=== PATIENT | female | born 1955 | race Caucasian/White ===

== ENCOUNTER → 2019-02-06 13:15 | Outpatient (CLI) | payer OTHER, SELFPAY | PROVIDERS: PCP Emergency Medicine; Visit Provider Internal Medicine Hematology & Oncology | DX: C50.411 Malignant neoplasm of upper-outer quadrant of right female breast (principal) | CPT/HCPCS: 36415; 85025 ==

== ENCOUNTER 2019-04-15 12:57 | Outpatient (RCR) | payer OTHER, SELFPAY | END 2019-05-15 | LOC: ANHLAB 12:57 | PROVIDERS: PCP Emergency Medicine; Visit Provider Internal Medicine Hematology & Oncology | DX: C50.411 Malignant neoplasm of upper-outer quadrant of right female breast (principal); C79.81 Secondary malignant neoplasm of breast; Z17.0 Estrogen receptor positive status [ER+] | CPT/HCPCS: 36415; 80053; 85025; 86300 ==

== ENCOUNTER 2019-10-15 12:51 | Outpatient (CLI) | payer MEDICARE, MEDICAID, SELFPAY ==
[2019-10-15 13:08] LABS: Hematocrit 51.1 % (37.0-47.0); Hemoglobin 17.1 g/dL (12.0-15.0); Mean Corpuscular HGB Conc 33.5 g/dl (32-36); Mean Corpuscular Hemoglobin 31.7 pg (26-34); Mean Corpuscular Volume 94.8 fl (80-100); Mean Platelet Volume 9.4 fl (7.4-10.4); Platelet Count Result 350 k/mm3 (150-375); Red Blood Count 5.39 M/mm3 (4.2-5.4); White Blood Count 9.6 K/mm3 (4.5-10.0)
[2019-10-15 13:16] LABS: Blood Urea Nitrogen 11 mg/dL (8-26); Carbon Dioxide 23 mmol/L (22-30); Chloride 105 mmol/L (98-109); Estimated Glomerular Filt Rate > 60; Glucose 94 mg/dL (70-105); Potassium 4.2 mmol/L (3.5-4.9); Sodium 138 mmol/L (138-146)
[2019-10-15 16:51] LABS: Alanine Aminotransferase 22 U/L (4-35); Albumin Level 4.2 g/dL (3.5-5.1); Alkaline Phosphatase 99 U/L (38-126); Aspartate Amino Transferase 26 U/L (14-36); Bilirubin,Total 0.5 mg/dL (0.2-1.3); Blood Urea Nitrogen 11 mg/dL (7-17); Calcium 9.8 mg/dL (8.4-10.2); Carbon Dioxide 23 mmol/L (22-30); Chloride 107 mmol/L (98-107); Estimated Glomerular Filt Rate > 60; Glucose 95 mg/dL (65-105); Potassium 4.5 mmol/L (3.4-5.0); Sodium 135 mmol/L (137-145)
[2019-10-18 10:04] LABS: CA 27.29 21 U/mL (<38)
== END 2019-10-15 12:52 | disposition home or self-care (01) ==
PROVIDERS: PCP Emergency Medicine; Visit Provider Internal Medicine Hematology & Oncology
DX: C50.411 Malignant neoplasm of upper-outer quadrant of right female breast (principal); Z17.0 Estrogen receptor positive status [ER+]
CPT/HCPCS: 36415; 80048; 80053; 85027; 86300

== ENCOUNTER 2019-12-16 10:04 | Outpatient (CLI) | payer MEDICARE, MEDICAID, SELFPAY ==
--- NOTE | ~2019-12-16 | MM_ITS ---
EXAMINATION: MM screening isha BI w edilberto HISTORY: Screening mammogram TECHNIQUE: Craniocaudal and mediolateral oblique 3-D tomosynthesis images were obtained and synthetic 2-D images were generated. CAD analysis was submitted and interpreted. COMPARISON: 12/13/2018, 11/03/2017, 11/01/2016 bilateral digital screening mammogram examinations BREAST PARENCHYMAL COMPOSITION: There are scattered areas of fibroglandular density. FINDINGS: There is considerable volume loss of the right breast secondary to partial mastectomy; hist ory of right breast radiation. A biopsy marker is noted in the posterior upper outer right breast, pr esent previously. There appears to be diminished volume of the right breast compared to prior examinations. There is so me focal architectural distortion/asymmetric density in the posterior upper right breast on MLO view, possibly postoperative; diagnostic right mammogram is recommended, with ultrasound if required. Otherwise there is no evidence of interval suspicious mass, calcification, or new architectural disto rtion to suggest malignancy in either breast. There has been no suspicious interval change. Bilateral benign calcifications are noted. IMPRESSION: 1. Right breast asymmetry; diagnostic right mammogram is recommended, with ultrasound if required 2. Recommend routine screening mammography in one year. BI-RADS Category 0: Incomplete: Needs additional imaging evaluation. Reviewed, dictated and finalized at location A. IMPRESSION: 1. Right breast asymmetry; diagnostic right mammogram is recommended, with ultr asound if required 2. Recommend routine screening mammography in one year. BI-RADS Category 0: Incomplete: Needs additional imaging evaluation.
--- NOTE | 2019-12-24 12:59 | WPDSIXMINUTE ---
Six Minute Walk Six Minute Walk: DOS: 12/16/2019 REQUESTING: Stephanie Walker NP REASON FOR TESTING: Exertional dyspnea. SIX MINUTE WALK This test was conducted per ATS guidelines. Initial saturation was 95% and pulse was 89. Blood pressure 123/84. The patient walked for 6 minutes without stopping. Distance walked was 1100 ft/ 335 m. Lowest saturation was 92%. Pulse ranged from 81 - 109. IMPRESSION: This walk study is normal without desaturation. No need for supplemental oxygen with exertion. Distance walked is adequate for age.
== END 2019-12-16 10:05 | disposition home or self-care (01) ==
PROVIDERS: PCP Emergency Medicine; Visit Provider Internal Medicine Hematology & Oncology
DX: Z12.31 Encounter for screening mammogram for malignant neoplasm of breast (principal); J44.9 Chronic obstructive pulmonary disease, unspecified; R92.8 Other abnormal and inconclusive findings on diagnostic imaging of breast
CPT/HCPCS: 77063; 77067; 94618

== ENCOUNTER 2020-01-10 11:18 | Outpatient (CLI) | payer MEDICARE, MEDICAID, SELFPAY ==
--- NOTE | ~2020-01-10 | MMUS_ITS ---
EXAMINATION: MM diagnostic mammo unilat RT, US breast RT limited HISTORY: Right breast asymmetry TECHNIQUE: Additional 3-D tomosynthesis images of the right breast were performed and synthetic 2-D i mages were generated. CAD analysis was submitted and interpreted. High resolution upper outer quadran t right breast ultrasound was performed. COMPARISON: 12/16/2019 bilateral digital screening mammogram FINDINGS: MAMMOGRAPHIC FINDINGS: There are surgical clips and a biopsy marker in the upper outer quadrant of the right breast. There i s associated focal asymmetric density/architectural distortion and some overlying retraction. ULTRASOUND: There is some shadowing in the area of the scar at 10:00, without definite mass. IMPRESSION: 1. Probably benign postoperative changes in the upper outer quadrant of the right breast 2. 6 month diagnostic right mammogram and targeted upper outer quadrant right breast ultrasound follo w-up are recommended BI-RADS category 3, probably benign findings. Reviewed, dictated and finalized at location A. IMPRESSION: 1. Probably benign postoperative changes in the upper outer quadrant of the rig ht breast 2. 6 month diagnostic right mammogram and targeted upper outer quadrant right b reast ultrasound follow-up are recommended BI-RADS category 3, probably benign findings.
== END 2020-01-10 11:19 | disposition home or self-care (01) ==
LOC: ANHIMG 11:20
PROVIDERS: PCP Emergency Medicine; Visit Provider Internal Medicine Hematology & Oncology
DX: C50.411 Malignant neoplasm of upper-outer quadrant of right female breast (principal); Z17.0 Estrogen receptor positive status [ER+]
CPT/HCPCS: 76642; 77065

== ENCOUNTER 2020-04-21 12:07 | Outpatient (CLI) | payer MEDICARE, MEDICAID, SELFPAY ==
--- NOTE | 2020-04-28 09:47 | WPDPFTINT ---
PFT Interpretation PFT Interpretation: This PFT met all criteria for ATS standards and reproducibility FEV/FVC post bronchodilator 56% of predicted FEV1 81% or 1.59 liters FVC 105% or 2.85 liters TLC 123% or 5.48 liters RV 157% RV/TLC 49% DLCO 58% when adjusted for alveolar volume but not adjusted for hemoglobin Flow volume loops showed significant expiratory coving Impression: Mild airflow obstruction with hyperinflation, air trapping and moderately reduced diffusion capacity. This corresponds with COPD. Clinical correlation is advised.
== END 2020-04-21 12:08 | disposition home or self-care (01) ==
LOC: ANHPFT 12:08
PROVIDERS: PCP Emergency Medicine; Visit Provider Nurse Practitioner
DX: J44.9 Chronic obstructive pulmonary disease, unspecified (principal)
CPT/HCPCS: 94060; 94726; 94729

== ENCOUNTER 2020-07-13 11:46 | Outpatient (CLI) | payer MEDICARE, MEDICAID, SELFPAY ==
--- NOTE | ~2020-07-13 | MMUS_ITS ---
EXAMINATION: MM diagnostic isha RT w edilberto, US breast RT limited HISTORY: Six-month follow-up for probably benign right breast architectural distortion, history of ri ght breast cancer TECHNIQUE: Craniocaudal, mediolateral, and mediolateral oblique 3-D tomosynthesis images of the right breast were performed and synthetic 2-D images were generated. CAD analysis was submitted and interp reted. High resolution limited right breast ultrasound was performed. COMPARISON: 01/10/2020, 12/16/2019, 12/13/2018, 11/03/2017 BREAST PARENCHYMAL COMPOSITION: There are scattered areas of fibroglandular density. FINDINGS: MAMMOGRAPHIC FINDINGS: There is stable architectural distortion in the posterior third of the upper outer quadrant of the ri ght breast. This has an appearance similar to prior examinations with no suspicious interval change i dentified. ULTRASOUND: A stable scarring is present at the site of prior lumpectomy. No suspicious mass is identified. IMPRESSION: 1. No mammographic or sonographic evidence of malignancy. 2. Routine screening mammography is recommended, due in six months. BI-RADS Category 2: Benign finding(s). Reviewed, dictated and finalized at location A. NT CARE COORDINATOR IMPRESSION: 1. No mammographic or sonographic evidence of malignancy. 2. Routine screening mammography is recommended, due in six months. BI-RADS Category 2: Benign finding(s).
--- NOTE | ~2020-07-13 | CT_ITS ---
EXAMINATION: CT lung screening DATE: 07/13/2020 13:16 INDICATION: Tobacco dependence TECHNIQUE: Computed tomography (CT) of the chest was performed without intravenous contrast. The dose -length product was 186.22 mGy-cm. Automated exposure control and iterative reconstruction technique were employed. COMPARISON: Comparison to multiple prior studies sequentially, with oldest reviewed study dated 11/2017. FINDINGS: Moderate-severe emphysema. Stable 3 mm left upper lobe nodule. There is a 5 mm perifissural nodule superior segment right lower lobe, image 43. No endobronchial lesions. No pneumothorax. Mild thoracic spondylosis. There is a 1.5 cm low-density lesion right adrenal gland, consistent with benig n adenoma. There is a 2.6 cm left adrenal nodule, also consistent with adenoma. There is distortion o f the right breast consistent with previous lumpectomy. IMPRESSION: 1. Lung-RADS category 3: Probably benign. Further evaluation is recommended with noncontrast low-dose chest CT in 6 months. Reviewed, dictated and finalized at location A. H SUPERVISOR IMPRESSION: 1. Lung-RADS category 3: Probably benign. Further evaluation is recommended wit h noncontrast low-dose chest CT in 6 months.
== END 2020-07-13 11:47 | disposition home or self-care (01) ==
PROVIDERS: PCP Emergency Medicine; Visit Provider Internal Medicine Hematology & Oncology
DX: C79.81 Secondary malignant neoplasm of breast (principal); Z12.2 Encounter for screening for malignant neoplasm of respiratory organs; Z87.891 Personal history of nicotine dependence
CPT/HCPCS: 76642; 77061; 77065; G0279; G0297

== ENCOUNTER 2020-12-25 14:38 | Outpatient (CLI) | payer MEDICARE, MEDICAID, SELFPAY ==
--- NOTE | ~2020-12-25 | CT_ITS ---
EXAMINATION: CT diagnostic chest wo con DATE: 12/25/2020 15:01 INDICATION: Follow-up pulmonary nodules TECHNIQUE: Computed tomography (CT) of the chest was performed without intravenous contrast. The dose -length product was 270.20 mGy-cm. Automated exposure control and iterative reconstruction technique were employed. COMPARISON: Comparison to multiple prior studies sequentially, with oldest reviewed study dated 11/2017. FINDINGS: Heart size normal. Stable mediastinal lymphadenopathy, likely reactive. There is atheroscle rosis of the aorta and coronary arteries. No significant pleural or pericardial effusion. No signific ant change to low-density bilateral adrenal masses, largest on the left measuring 2.6 cm, most likely benign adenomas. Severe emphysema. Calcified granuloma right upper lobe. Stable 3 mm left upper lobe nodule. Fissural nodule on the right seen on prior examination not definitely seen on current study, likely r esolving atelectasis. No endobronchial lesions. Dependent atelectasis. No new pulmonary nodules or ma sses. No endobronchial lesions. There are changes of lumpectomy in the right breast. Mild thoracic sp ondylosis. No acute osseous abnormality. No lytic or blastic lesions. IMPRESSION: 1. Stable left upper lobe nodule measuring 3 mm, likely benign. Twelve-month follow-up low dose CT ch est recommended. 2: Severe emphysema. 3: Mediastinal lymphadenopathy stable, likely reactive. 4: Stable bilateral low-density adrenal masses, likely benign adenomas. Reviewed, dictated and finalized at location A. IMPRESSION: 1. Stable left upper lobe nodule measuring 3 mm, likely benign. Twelve-month fo llow-up low dose CT chest recommended. 2: Severe emphysema. 3: Mediastinal lymphadenopathy stable, likely reactive. 4: Stable bilateral low-density adrenal masses, likely benign adenomas.
== END 2020-12-25 14:39 | disposition home or self-care (01) ==
PROVIDERS: PCP Emergency Medicine; Visit Provider Internal Medicine Hematology & Oncology
DX: R93.89 Abnormal findings on diagnostic imaging of other specified body structures (principal); R91.1 Solitary pulmonary nodule; J43.9 Emphysema, unspecified; R59.0 Localized enlarged lymph nodes; E27.9 Disorder of adrenal gland, unspecified
CPT/HCPCS: 71250

== ENCOUNTER 2021-01-19 12:05 | Outpatient (CLI) | payer MEDICARE, MEDICAID, SELFPAY ==
--- NOTE | ~2021-01-19 | MM_ITS ---
EXAMINATION: MM diagnostic isha BI w edilberto HISTORY: History of right partial mastectomy and radiotherapy in 2015 for breast cancer. TECHNIQUE: ML, MLO and craniocaudal 3-D tomosynthesis images of both breasts were performed and synth etic 2-D images were generated. CAD analysis was submitted and interpreted. COMPARISON: 07/13/2020 and 01/10/2020 diagnostic right mammogram and limited right breast ultrasound 12/16/2019, 12/13/2018, 11/03/2017 bilateral digital screening mammogram examinations BREAST PARENCHYMAL COMPOSITION: There are scattered areas of fibroglandular density. FINDINGS: Stable prominent right breast volume loss and scarring in the upper outer quadrant. A biopsy marker is again noted on the right. No interval suspicious mass, architectural distortion, m alignant constipation, skin thickening or retraction since prior examinations. Scattered bilateral be nign calcifications. IMPRESSION: 1. Status post right partial mastectomy for breast cancer; no current evidence of malignancy or signi ficant change 2. Routine mammographic screening is recommended BI-RADS Category 2: Benign finding(s). Reviewed, dictated and finalized at location A. IMPRESSION: 1. Status post right partial mastectomy for breast cancer; no current evidence of malignancy or significant change 2. Routine mammographic screening is recommended BI-RADS Category 2: Benign finding(s).
== END 2021-01-19 12:06 | disposition home or self-care (01) ==
LOC: ANHIMG 12:08
PROVIDERS: PCP Emergency Medicine; Visit Provider Internal Medicine Hematology & Oncology
DX: C50.411 Malignant neoplasm of upper-outer quadrant of right female breast (principal); Z17.0 Estrogen receptor positive status [ER+]; Z98.890 Other specified postprocedural states
CPT/HCPCS: 77062; 77066; G0279

== ENCOUNTER 2021-10-28 11:04 | Emergency (ER) | payer MEDICARE, MEDICAID, SELFPAY ==
[2021-10-28] VITALS (8 sets, daily range): BP systolic 130–178; BP diastolic 68–99; PULSE 77; RESP 16; TEMP 36.4–37; O2SAT 96–97
--- NOTE | ~2021-10-28 | CT_ITS ---
EXAMINATION: CTA chest PE protocol DATE: 10/28/2021 12:42 INDICATION: Hemoptysis. History of COPD. TECHNIQUE: Computed tomography angiography (CTA) of the chest was performed with 100 mL Omnipaque-350 intravenous contrast timed to evaluate the pulmonary arteries. Coronal maximum intensity projection 3D-reconstructions were created by the technologist. Automated exposure control and iterative reconst ruction technique were employed. Exam dose: 329.31 mGy-cm total exam DLP. COMPARISON: 12/17/2020 CT chest FINDINGS: There is diagnostic contrast enhancement of the pulmonary arteries and no evidence of pulmo nary embolism. No hilar or mediastinal mass lesion or lymphadenopathy. No thoracic aortic aneurysm. There is aortic and coronary and great vessel calcification. Postoperative change and probable scarring of the right breast. Left breast is largely excluded from examination. Prominent emphysematous changes of the lungs. No pulmonary infiltration or consolidation. No suspicio us pulmonary mass lesion. Stable bilateral low-attenuation adrenal masses, likely benign adrenal adenomas. Small sliding hiatal hernia. No suspicious osteolytic or osteoblastic lesions. IMPRESSION: No evidence of pulmonary embolism Emphysema Small sliding hiatal hernia Stable bilateral adrenal adenomas Reviewed, dictated and finalized at Location [facility]. Reviewed, dictated and finalized at location A.
--- NOTE | 2021-10-28 11:43 | ED.GENADULT ---
HPI - General Adult General Chief complaint: Unspecified Stated complaint: coughing up blood Time Seen by Provider: 10/28/21 11:41 Source: patient Mode of arrival: ambulatory Limitations: no limitations History of Present Illness HPI narrative: Patient is a six 6-year-old female complaining of coughing up blood this morning, 1 episode, has not recurred since. Patient denies any chest pain, shortness of breath, abdominal pain, nausea, vomiting, diaphoresis, fever or chills. Patient denies hematemesis, hematochezia or melena. Patient states that she has a history of COPD. Related Data Home Medications Medication Instructions Recorded Confirmed albuterol sulfate [Ventolin HFA] 90 puff INHALATION DIRECTED 05/17/19 06/21/21 alendronate 70 mg PO ONCE 05/17/19 06/21/21 anastrozole 1 mg PO DAILY 05/17/19 06/21/21 aspirin 325 mg PO DAILY 05/17/19 06/21/21 calcium carbonate 500 mg PO DAILY 05/17/19 06/21/21 fluticasone propion-salmeterol 1 puff INHALATION BID 05/17/19 06/21/21 umeclidinium [Incruse Ellipta] 1 inh INHALATION DAILY 05/17/19 06/21/21 Allergies Allergy/AdvReac Type Severity Reaction Status Date / Time codeine Allergy Unknown Itching Verified 06/21/21 13:09 Review of Systems Review of Systems: All systems reviewed & are unremarkable except as noted in HPI and below Constitutional: Constitutional: Denies body ache(s), Denies chills, Denies excessive sweating, Denies fatigue, Denies fever(s), Denies headache(s), Denies lethargy, Denies malaise, Denies weakness and Denies weight loss Eyes: Eyes: Denies blurry vision, Denies change in vision and Denies loss of vision ENT: Denies dizziness, Denies ear discharge, Denies headache(s), Denies lip swelling, Denies epistaxis, Denies nasal congestion, Denies neck pain, Denies throat swelling and Denies tongue swelling Cardiovascular: Cardiovascular: Denies chest pain, Denies chest pain at rest, Denies chest pain with activity, Denies diaphoresis, Denies rapid heart rate, Denies edema, Denies irregular heart rhythm, Denies lightheadedness, Denies palpitations, Denies dyspnea and Denies dyspnea on exertion Respiratory: Respiratory: Denies chest congestion, Denies cough, Denies dyspnea and Denies dyspnea on exertion Gastrointestinal: Gastrointestinal: Denies abdominal pain, Denies melena, Denies hematochezia, Denies diarrhea, Denies nausea, Denies vomiting and Denies hematemesis Musculoskeletal: Musculoskeletal: Denies abnormal gait, Denies deformity, Denies joint swelling, Denies limited range of motion, Denies neck pain and Denies numbness Neurologic: Denies Abnormal speech present, Denies abnormal gait, Denies confusion, Denies dizziness, Denies headache(s), Denies focal weakness, Denies loss of vision, Denies numbness, Denies Other visual disturbances, Denies Sensory deficit (Neuro) and Denies weakness Psychiatric: Psychiatric: Denies confusion, Denies depression, Denies auditory hallucinations, Denies homicidal ideation and Denies suicidal ideation Endocrine: Endocrine: Denies cold intolerance, Denies excessive sweating, Denies fatigue, Denies heat intolerance and Denies palpitations Hematologic/Lymphatic: Hematologic/Lymphatic: Denies easy bleeding and Denies easy bruising Allergic/Immunologic: Allergic/Immunologic: Denies lip swelling, Denies throat swelling and Denies tongue swelling PMFSH Comments Past medical history: COPD, osteoporosis Family history: Hypertension Social history: Positive for smoker, no EtOH or drug use Exam Const: General: cooperative, healthy appearing, comfortable, no acute distress, well developed, alert and awake; No confusion Orientation/consciousness: oriented to person, oriented to place, oriented to time, patient oriented x3 and No confusion Limitations: no limitations HENMT: Head: normal to inspection, normocephalic and atraumatic Ears: hearing grossly normal bilaterally, TM normal on the right and TM normal on the left General nose exam:
[2021-10-28 12:02] LABS: Basophils Absolute Auto 0.1 K/mm3 (0.0-0.1); Basophils Percent Auto 0.8 % (0.2-1.2); Eosinophils Absolute Auto 0.1 K/mm3 (0-0.3); Eosinophils Percent Auto 1.1 % (0-4.4); Hematocrit 50.2 % (37.0-47.0); Hemoglobin 17.1 g/dL (12.0-15.0); Immature Granulocyte Absolute 0.05 K/mm3 (0.00-0.031); Immature Granulocyte Percent A 0.4 % (0-0.5); Lymphocytes Absolute Auto 2.23 K/mm3 (0.9-3.2); Lymphocytes Percent Auto 18.7 % (18.3-44.2); Mean Corpuscular HGB Conc 34.1 g/dl (32-36); Mean Corpuscular Hemoglobin 32.1 pg (26-34); Mean Corpuscular Volume 94.2 fl (80-100); Mean Platelet Volume 9.4 fl (7.4-10.4); Monocytes Absolute Auto 0.6 K/mm3 (0.1-0.6); Neutrophils Absolute Auto 8.8 K/mm3 (1.3-6.7); Platelet Count Result 344 k/mm3 (150-375); Red Blood Count 5.33 M/mm3 (4.2-5.4); Red Cell Distribution Width 13.1 % (11.5-14.5); White Blood Count 11.9 K/mm3 (4.5-10.0)
[2021-10-28 12:12] LABS: INR 0.9; Prothrombin Time 11.7 Seconds (11.1-14.7)
[2021-10-28 12:13] LABS: Partial Thromboplastin Time 25.8 SECONDS (22.3-36.8)
[2021-10-28 12:14] LABS: Alanine Aminotransferase 17 U/L (4-35); Albumin Level 4.3 g/dL (3.5-5.1); Alkaline Phosphatase 97 U/L (38-126); Anion Gap 10 mmol/L (8-16); Aspartate Amino Transferase 23 U/L (14-36); Bilirubin,Total 0.4 mg/dL (0.2-1.3); Blood Urea Nitrogen 14 mg/dL (7-17); Calcium 9.1 mg/dL (8.4-10.2); Carbon Dioxide 22 mmol/L (22-30); Chloride 107 mmol/L (98-107); Estimated Glomerular Filt Rate > 60; Glucose 103 mg/dL (65-110); Sodium 139 mmol/L (137-145)
[2021-10-28 12:15] LABS: D Dimer 0.33 ug/mL (<0.48)
== END 2021-10-28 14:16 | disposition home or self-care (01) ==
PROVIDERS: Emergency Provider Emergency Medicine; PCP Emergency Medicine
DX: R04.2 Hemoptysis (principal); J44.9 Chronic obstructive pulmonary disease, unspecified; M81.0 Age-related osteoporosis without current pathological fracture; F17.200 Nicotine dependence, unspecified, uncomplicated; Z79.82 Long term (current) use of aspirin
CPT/HCPCS: 36415; 71275; 80053; 85025; 85380; 85610; 85730; 99284; Q9967

== ENCOUNTER 2022-01-04 18:41 | Emergency (ER) | payer MEDICARE, MEDICAID, SELFPAY ==
--- NOTE | 2022-01-04 18:48 | ED.FEMALEGU ---
HPI - Female Genitourinary General Chief complaint: Urogenital-Female Stated complaint: UTI Time Seen by Provider: 01/04/22 18:58 Source: patient and RN notes reviewed Mode of arrival: ambulatory Limitations: no limitations History of Present Illness HPI Narrative: 66-year-old female presents to the [facility] with burning, urgency and frequency along with suprapubic pain that is been getting worse over the last 4 days. Denies fever, generalized abdominal pain and chest pain. Has taken Azo MD elicited complaint: UTI Onset (ago): day(s) (4) Related Data Home Medications Medication Instructions Recorded Confirmed aspirin 325 mg tablet 325 mg PO DAILY 05/17/19 01/04/22 Allergies Allergy/AdvReac Type Severity Reaction Status Date / Time codeine Allergy Unknown Itching Verified 01/04/22 18:53 Review of Systems Review of Systems: All systems reviewed & are unremarkable except as noted in HPI and below Constitutional: Constitutional: Reports no additional constitutional complaints, Denies chills and Denies fever(s) Eyes: Eyes: Reports no additional eye complaints ENT: Reports system reviewed and no additional complaints, except as documented Cardiovascular: Cardiovascular: Reports no additional cardiovascular complaints Respiratory: Respiratory: Reports no additional respiratory complaints Gastrointestinal: Gastrointestinal: Reports as per HPI and Reports abdominal pain (Suprapubic pressure) Genitourinary: Genitourinary: Reports as per HPI, Reports hematuria, Reports dysuria and Denies urinary incontinence Musculoskeletal: Musculoskeletal: Reports no additional musculoskeletal complaints Integumentary/Breasts: Skin/Breast: Reports system reviewed and no additional complaints, except as docu Neurologic: Reports system reviewed and no additional complaints, except as documented Psychiatric: Psychiatric: Reports no additional psychiatric complaints Allergic/Immunologic: Allergic/Immunologic: Reports no additional allergic/immunologic complaints PMFSH Comments At the time of my signature, I reviewed and agree with the nursing past medical, surgical, social, and family history. There is no relevant family history pertinent to the patient complaint. Exam Const: General: no acute distress, alert and ill appearing chronically Nutritional Appearance: well nourished Orientation/consciousness: patient oriented x3 Limitations: no limitations HENMT: Head: normal to inspection Ears: external ears normal Eyes: General: appearance normal, both eyes and all related structures Pupils: Equal, round and reactive pupils present Neck: Neck: normal visual inspection, no lymphadenopathy and no meningeal signs Chest: Chest palpation & inspection: normal inspection of the chest Resp: Effort & Inspection: normal respiratory effort and no use of accessory muscles Cardio: Rate: regular rate Rhythm: regular rhythm GI: GI Palp: Yes Soft to palpation and No Tenderness to palpation present (GI) Back/Spine/Pelvis: Cervical Spine: normal cervical lordosis Thoracic/Lumbar Spine: thoracic and lumbar spine normal to inspection Skin: General skin exam: normal color Rashes: no rashes Wounds: no wounds Neuro: General: patient oriented x3, moves all extremities, no meningeal signs and no focal motor deficits Cranial nerves: Yes Equal, round and reactive pupils present Speech: normal speech Gait exam (Neuro): Normal gait present Extrem: General: normal to inspection, full ROM and capillary refill normal Psych: Appearance: grossly normal and well kempt Mental Status: mental status grossly normal Affect: normal affect Attitude: cooperative Thought content: Yes Normal thought content present Course Course Emergency Course: Discharge instructions reviewed with patient, as well as provided in writing per nursing staff. The instructions also include specific and strict return/GO TO THE ER as well as f/u information. All ques
[2022-01-04 18:58] VITALS: BP 86/69; PULSE 74; RESP 16; TEMP 37.2; O2SAT 97
== END 2022-01-04 19:05 | disposition home or self-care (01) ==
PROVIDERS: Emergency Provider Nurse Practitioner; PCP Emergency Medicine
DX: N39.0 Urinary tract infection, site not specified (principal); J44.9 Chronic obstructive pulmonary disease, unspecified; Z85.3 Personal history of malignant neoplasm of breast; Z90.10 Acquired absence of unspecified breast and nipple
CPT/HCPCS: 81003; 87077; 87086; 87186; 99213; G0463

== ENCOUNTER 2022-02-09 15:23 | Emergency (ER) | payer MEDICARE, MEDICAID, SELFPAY ==
--- NOTE | ~2022-02-09 | XR_ITS ---
XR hand LT min 3V DATE: 02/09/2022 15:59 INDICATION: Smashed right fingers in car door TECHNIQUE: 3 views COMPARISON: None FINDINGS: Minimally displaced fracture of the tuft of the distal phalanx of the third digit. No other fracture or dislocation. There is polyarticular osteophytosis, particularly severe at the first carpometacarpal joint, involvi ng multiple interphalangeal joints, particularly at the first digit and distal interphalangeal joint of the second digit. Osteopenia. IMPRESSION: Minimally displaced fracture of the tuft of the distal phalanx of the third digit Polyarticular osteoarthritis Reviewed, dictated and finalized at location A. IMPRESSION: Minimally displaced fracture of the tuft of the distal phalanx of t he third digit Polyarticular osteoarthritis
--- NOTE | 2022-02-09 15:36 | ED.UPPEXIN ---
HPI - Extremity Injury (Upper) General Chief Complaint: Extremity Injury, Upper Stated Complaint: left 3rd finger cut Time Seen by Provider: 02/09/22 15:36 Source: patient Mode of arrival: ambulatory Limitations: no limitations History of Present Illness HPI narrative: Carolina Streeter is a 66-year-old female with PMH of breast cancer and COPD, ulcer [facility] after smashing L finger in a car door-fingernail looks displaced and there is bleeding from underneath the nail; mild pain, good Refill in fingers in general Related Data Home Medications Medication Instructions Recorded Confirmed aspirin 325 mg tablet 325 mg PO DAILY 05/17/19 01/04/22 Allergies Allergy/AdvReac Type Severity Reaction Status Date / Time codeine Allergy Unknown Itching Verified 01/04/22 18:53 Review of Systems Review of Systems: CONSTITUTIONAL: Denies fever, chills, sweats. EYES: Denies visual changes, redness, discharge. ENT: Denies rhinorrhea, congestion, sore throat, otalgia. CARDIOVASCULAR: Denies chest pain, palpitations, edema. RESPIRATORY: Denies dyspnea, wheezing, cough GASTROINTESTINAL: Denies abdominal pain, nausea, vomiting, diarrhea. GENITOURINARY: Denies dysuria, hematuria, abnormal discharge SKIN: Denies rash or itching. NEUROLOGIC: Denies numbness, or focal weakness. PSYCHIATRIC: Denies anxiety or depression. Left finger trauma after smashing it in a cardoor PMFSH Past Medical History Medical History (Updated 02/09/22 @ 17:17 by Codie Dos Santos CNP) Breast cancer COPD (chronic obstructive pulmonary disease) Exam Narrative: GENERAL: This is a well-nourished, well-developed patient, in mild distress. HEAD: normocephalic, atraumatic. EYES: Sclera clear/white. Vision is grossly intact. EARS: External ears normal, Hearing grossly intact. NOSE: External nose normal without nasal discharge, nares without redness, no rhinorrhea. THROAT: Mucous membranes moist, NECK: Neck supple, non-tender CARDIOVASCULAR: Regular rate and rhythm without murmurs, gallops, or rubs. RESPIRATORY: Clear to auscultation. Breath sounds equal bilaterally. No wheezes, rales, or rhonchi. GASTROINTESTINAL: Not done SKIN: warm, intact with no suspicious lesions or rash, good texture and turgor. NEURO: awake, alert, and oriented to person, place and time. There were no obvious focal neurologic abnormalities. Steady gait EXTREMITIES: Normal range of motion. Third finger of left hand has nail displacement with bleeding and swelling and bruising of finger 2 and 4 BACK: Nontender without deformity Course Course Emergency Course: Patient comes to [facility] after smashing finger in car door X-ray of hand shows minimal displaced fracture of the tuft of the distal phalanx of third digit, no other fracture dislocation there is polyarticular osteophytosis, polyarticular osteoarthritis Laceration repair Level of Care: [facility] Visit Procedures Laceration Laceration 1: Date: 02/09/22 Time: 17:10 Site: hand Side (If applicable): left Size (cm): 3 Description: other (Cut alongside of acute cuticle and nail removed from part of nailbed left third finger) Local Anesthetic: lidocaine 1% Amount of anesthesia used (mL): 10 Pre-repair: irrigated extensively and minor debridement ====== Skin Level ====== Skin layer closed with: vicryl Size (cm): 4-0 Number of sutures: 5 Technique: simple, interrupted ====== Subcutaneous Layer ====== ====== Muscle Layer ====== ====== Tendon Layer ====== Dressing: Pressure dressing with aluminum splint MDM - Extremity Injury (Upper) Differential Diagnosis Differential diagnosis: Likely sprain and strain of wrist, fracture of wrist and other (Laceration of third middle finger with tuft fracture, ) Critical Care Time Critical Care Time Critical Care Time: No Discharge Plan Discharge Clinical Impression:
[2022-02-09 15:38] VITALS: BP 136/73; PULSE 61; RESP 18; TEMP 36.9; O2SAT 99
[2022-02-09] MEDS: LIDOCAINE HCL 1% LOCAL INJ 20 ML VIAL 10 ML INFILTRATE (16:42)
[2022-02-09] MEDS: ceFAZolin SODIUM 1 GM VIAL IM (17:20)
== END 2022-02-09 17:41 | disposition home or self-care (01) ==
PROVIDERS: Emergency Provider Nurse Practitioner; PCP Emergency Medicine
DX: S62.633B Displaced fracture of distal phalanx of left middle finger, initial encounter for open fracture (principal); W23.0XXA Caught, crushed, jammed, or pinched between moving objects, initial encounter; J44.9 Chronic obstructive pulmonary disease, unspecified; Z85.3 Personal history of malignant neoplasm of breast; Z79.82 Long term (current) use of aspirin
CPT/HCPCS: 12002; 29130; 73130; 96372; 99214; G0463; J0690

== ENCOUNTER 2022-03-02 13:14 | Outpatient (CLI) | payer OTHER, SELFPAY ==
--- NOTE | ~2022-03-02 | MM_ITS ---
EXAMINATION: MM screening [facility] BI w edilberto HISTORY: Screening TECHNIQUE: Craniocaudal and mediolateral oblique 3-D tomosynthesis images were obtained and synthetic 2-D images were generated. CAD analysis was submitted and interpreted. COMPARISON: Comparison to multiple prior studies sequentially, with oldest reviewed study dated 12/2017. BREAST PARENCHYMAL COMPOSITION: There are scattered areas of fibroglandular density. FINDINGS: There is no evidence of suspicious mass, calcification, or architectural distortion to sugg est malignancy in either breast. There has been no suspicious interval change. IMPRESSION: 1. No mammographic evidence of malignancy. 2. Recommend routine screening mammography in one year. BI-RADS Category 1: Negative Reviewed, dictated and finalized at location A.
== END 2022-03-02 13:15 | disposition home or self-care (01) ==
PROVIDERS: PCP Family Medicine; Visit Provider Internal Medicine Hematology & Oncology
DX: Z12.31 Encounter for screening mammogram for malignant neoplasm of breast (principal)
CPT/HCPCS: 77063; 77067

== ENCOUNTER 2022-05-19 15:18 | Emergency (ER) | payer OTHER, SELFPAY ==
[2022-05-19 15:29] VITALS: BP 137/83; PULSE 59; RESP 18; TEMP 36.5; O2SAT 98
--- NOTE | 2022-05-19 16:04 | ED.FEMALEGU ---
HPI - Female Genitourinary General Chief complaint: Urogenital-Female Stated complaint: UTI Time Seen by Provider: 05/19/22 16:04 Source: patient, RN notes reviewed and old records reviewed Mode of arrival: ambulatory Limitations: no limitations History of Present Illness HPI Narrative: 66-year-old female presents to the [facility] with complaints of I think I have a UTI or yeast infection. Has not felt right, had a little bit of irritation with urination. No abdominal pain or chest pain. Denies fevers. States symptoms started about a week ago Related Data Allergies Allergy/AdvReac Type Severity Reaction Status Date / Time codeine Allergy Unknown Itching Verified 04/06/22 10:39 Review of Systems Review of Systems: All systems reviewed & are unremarkable except as noted in HPI and below Constitutional: Constitutional: Reports no additional constitutional complaints, Denies chills and Denies fatigue Eyes: Eyes: Reports no additional eye complaints ENT: Reports system reviewed and no additional complaints, except as documented Cardiovascular: Cardiovascular: Reports no additional cardiovascular complaints Respiratory: Respiratory: Reports no additional respiratory complaints Gastrointestinal: Gastrointestinal: Reports no additional gastrointestinal complaints, Denies abdominal pain, Denies diarrhea, Denies nausea and Denies vomiting Genitourinary: Genitourinary: Reports as per HPI, Denies hematuria, Denies nocturia, Reports dysuria, Denies flank pain and Denies vaginal discharge Musculoskeletal: Musculoskeletal: Reports no additional musculoskeletal complaints and Denies back pain Integumentary/Breasts: Skin/Breast: Reports system reviewed and no additional complaints, except as docu Neurologic: Reports system reviewed and no additional complaints, except as documented Psychiatric: Psychiatric: Reports no additional psychiatric complaints Endocrine: Endocrine: Denies fatigue Allergic/Immunologic: Allergic/Immunologic: Reports no additional allergic/immunologic complaints PMFSH Past Medical History Medical History Breast cancer COPD (chronic obstructive pulmonary disease) Social History Social History Smoking status: Current every day smoker Comments At the time of my signature, I reviewed and agree with the nursing past medical, surgical, social, and family history. There is no relevant family history pertinent to the patient complaint. Exam Const: General: healthy appearing, no acute distress, alert and well nourished Nutritional Appearance: well nourished Orientation/consciousness: patient oriented x3 Limitations: no limitations HENMT: Head: normal to inspection Eyes: Conjunctivae: conjunctivae normal Pupils: Equal, round and reactive pupils present Neck: Neck: normal visual inspection, no lymphadenopathy and no meningeal signs Chest: Chest palpation & inspection: normal inspection of the chest and abnormal inspection of the chest Resp: Effort & Inspection: normal respiratory effort Auscultation: clear to auscultation bilaterally Cardio: Rate: regular rate Rhythm: regular rhythm GI: GI Palp: Yes Soft to palpation and No Tenderness to palpation present (GI) : General: Yes no CVA tenderness Back/Spine/Pelvis: Back: no CVA tenderness Skin: General skin exam: normal color Rashes: no rashes Wounds: no wounds Neuro: General: patient oriented x3, moves all extremities, no meningeal signs and no focal motor deficits Cranial nerves: Yes Equal, round and reactive pupils present Speech: normal speech Gait exam (Neuro): Normal gait present Extrem: General: normal to inspection Psych: Appearance: grossly normal and well kempt Mental Status: mental status grossly normal Affect: normal affect Attitude: cooperative Thought content: Yes Normal thought content present Judgement: Nanette
== END 2022-05-19 16:13 | disposition home or self-care (01) ==
PROVIDERS: Emergency Provider Nurse Practitioner; PCP Emergency Medicine
DX: R30.0 Dysuria (principal); J44.9 Chronic obstructive pulmonary disease, unspecified; Z85.3 Personal history of malignant neoplasm of breast; F17.200 Nicotine dependence, unspecified, uncomplicated
CPT/HCPCS: 81003; 87077; 87086; 87088; 99213; G0463

== ENCOUNTER 2022-05-30 07:33 | Emergency (ER) | payer OTHER, SELFPAY ==
--- NOTE | ~2022-05-30 | XR_ITS ---
EXAMINATION: XR chest 1V portable DATE: 05/30/2022 08:28 INDICATION: Hemoptysis. TECHNIQUE: A single frontal view of the chest was obtained. COMPARISON: Chest 2 views 03/28/2018, chest CT 10/28/2021 FINDINGS: There are lucencies in the lungs, consistent with emphysema. No pleural effusion or pneumot horax. The heart size is normal. IMPRESSION: 1. Emphysema. Reviewed, dictated and finalized at location A. IMPRESSION: 1. Emphysema.
[2022-05-30 07:38] VITALS: BP 159/85; PULSE 66; RESP 18; TEMP 36.7; O2SAT 97
[2022-05-30 07:49] VITALS: O2SAT 97
--- NOTE | 2022-05-30 08:02 | ED.GENADULT ---
HPI - General Adult General Chief complaint: Upper Respiratory Infection Stated complaint: coughing up blood Time Seen by Provider: 05/30/22 07:50 History of Present Illness HPI narrative: This is a 66-year-old female with history of COPD 2 L home oxygen at night presenting to the ED after an episode of hemoptysis. Patient said that she woke up this morning and coughed up bright red blood. Has not happened since. She has noted that she has felt more fatigued and slightly short of breath over the last several days. She has had significant COVID is posterior over the last week although she took a test this morning which is negative. Patient denies lower extremity edema, recent trauma or immobilization. She does have a history of breast cancer which was successfully treated. Related Data Allergies Allergy/AdvReac Type Severity Reaction Status Date / Time codeine Allergy Unknown Itching Verified 05/30/22 07:50 Review of Systems Review of Systems: CONSTITUTIONAL: Denies night sweats. EYES: No eye pain ENT: Denies rhinorrhea CARDIOVASCULAR: Denies palpitations RESPIRATORY: admits hemoptysis GASTROINTESTINAL: Denies hematemesis GENITOURINARY: Denies hematuria. SKIN: Denies rash MUSCULOSKELETAL: Denies myalgia. NEUROLOGIC: Denies weakness. PSYCHIATRIC: Denies delusions [facility] Past Medical History Medical History Breast cancer COPD (chronic obstructive pulmonary disease) Social History Social History (Updated 05/30/22 @ 08:13 by Rahul Alves MD) Social History: denies alcohol or drug use. Heavy smoker. Smoking status: Current every day smoker Exam Narrative: APPEARANCE: No apparent distress. Head atraumatic. EYES: PERRLA/EOMI, NOSE: Normal no drainage NECK: Supple, Trachea midline RESPIRATORY: Focal exam of the lungs revealed are clear to auscultation no significant wheezing, rhonchi or rales. No increased work of breathing. CARDIOVASCULAR: S1S2 appreciated , no peripheral edema ABDOMINAL: Soft, nontender, nondistended, MUSCULOSKELETAl: No obvious deformities NEURO: Alert. Moving 4/4 extremities SKIN:: Warm, dry. Normal color PSYCHIATRIC: Normal affect Course Vital Signs Vital signs: Vital Signs Temperature 98.1 F 05/30/22 07:38 Pulse Rate 66 05/30/22 07:38 Respiratory Rate 18 05/30/22 07:38 Blood Pressure 159/85 H 05/30/22 07:38 Pulse Oximetry 97 05/30/22 07:38 Oxygen Delivery Room Air 05/30/22 07:38 Temperature 98.1 F 05/30/22 07:38 Pulse Rate 60 05/30/22 09:32 Respiratory Rate 18 05/30/22 09:32 Blood Pressure 121/85 05/30/22 09:32 Pulse Oximetry 98 05/30/22 09:32 Oxygen Delivery Room Air 05/30/22 07:49 Medical Decision Making MDM Narrative Medical decision making narrative: this is a 66-year-old female presenting ED after an episode of hemoptysis. She has had a cough for the last several days. Differential includes bronchitis, pulmonary embolism, lung cancer. Laboratory studies, EKG and chest x-ray will be obtained. She will be given breathing treatments. EKG interpretation: Rhythm [sinus], Rate 57, [place] -[normal], [place] -[normal], QRS [narrow], QTC [normal], T waves -[negative for concerning inversions], ST Segments - [Negative for concerning elevations] Final interpretations: sinus bradycardia Laboratory studies showed a D-dimer 0.49. No PE scan is necessary. Troponin was undetectable. BNP was 85. CBC and BMP wereE within normal limits. COVID and flu were both negative. Chest x-ray showed emphysema. patient was mored in the emergency department for several hours. She has not had a recurrence of her hemoptysis. Patient states she has had this had occurred 3 times in the past. She has already sought medical attention and had a negative workup. Patient's mops this is likely due to her chronic emphysema/bronchitis. Upon reassessment the patient is not in respirato
--- NOTE | 2022-05-30 08:10 | ECG_ITS ---
Measurements Intervals Mobile Rate: 57 P: 31 [place]: 149 QRS: -2 QRSD: 88 T: 20 QT: 388 QTc: 381 Interpretive Statements SINUS BRADYCARDIA OTHERWISE NORMAL ECG NO PREVIOUS ECG AVAILABLE FOR COMPARISON Electronically Signed On 05-30-2022 12:50:20 CDT by Wallace Fraga M.D.
[2022-05-30] MEDS: SODIUM CHLORIDE 0.9% IV 1,000 ML 999 ML IV CONT (08:21)
[2022-05-30 08:24] VITALS: RESP 18
[2022-05-30] MEDS: ALBUTEROL SULFATE NEB 2.5 MG/3 ML INH 5 MG INHALATION (08:24)
[2022-05-30] MEDS: IPRATROPIUM BR 0.02% INH SOLN 0.5 MG/2.5 ML VIAL INHALATION (08:24)
[2022-05-30 08:27] LABS: Basophils Absolute Auto 0.1 K/mm3 (0.0-0.1); Basophils Percent Auto 0.9 % (0.2-1.2); Eosinophils Absolute Auto 0.1 K/mm3 (0-0.3); Eosinophils Percent Auto 0.5 % (0-4.4); Hematocrit 51.1 % (37.0-47.0); Hemoglobin 16.7 g/dL (12.0-15.0); Immature Granulocyte Absolute 0.04 K/mm3 (0.00-0.031); Immature Granulocyte Percent A 0.4 % (0-0.5); Lymphocytes Absolute Auto 1.99 K/mm3 (0.9-3.2); Lymphocytes Percent Auto 20.9 % (18.3-44.2); Mean Corpuscular HGB Conc 32.7 g/dl (32-36); Mean Corpuscular Hemoglobin 32.1 pg (26-34); Mean Corpuscular Volume 98.3 fl (80-100); Mean Platelet Volume 9.5 fl (7.4-10.4); Monocytes Absolute Auto 0.5 K/mm3 (0.1-0.6); Monocytes Percent Auto 5.1 % (2.6-8.5); Neutrophils Absolute Auto 6.9 K/mm3 (1.3-6.7); Neutrophils Percent Auto 72.2 % (45.5-73.1); Platelet Count Result 326 k/mm3 (150-375); Red Cell Distribution Width 13.1 % (11.5-14.5); White Blood Count 9.5 K/mm3 (4.5-10.0)
[2022-05-30 08:37] LABS: Alanine Aminotransferase 18 U/L (6-35); Albumin Level 4.4 g/dL (3.5-5.1); Alkaline Phosphatase 86 U/L (38-126); Anion Gap 13 mmol/L (8-16); Aspartate Amino Transferase 31 U/L (14-36); Bilirubin,Total 0.5 mg/dL (0.2-1.3); Blood Urea Nitrogen 14 mg/dL (7-17); Calcium 9.2 mg/dL (8.4-10.2); Carbon Dioxide 26 mmol/L (22-30); Chloride 104 mmol/L (98-107); Estimated CRCL calculation 71 ml/min; Estimated Glomerular Filt Rate > 60; Glucose 108 mg/dL (65-110); Potassium 4.1 mmol/L (3.4-5.0); Sodium 143 mmol/L (137-145)
[2022-05-30 08:45] LABS: NT Pro B Type Natriuretic Pept 85 pg/mL (5-100)
[2022-05-30 08:49] LABS: Troponin I < 0.012 ng/mL (0.000-0.034)
[2022-05-30 09:05] LABS: INR 0.9; Influenza A QL RT-PCR Negative (Negative); Influenza B QL RT-PCR Negative (Negative); Prothrombin Time 12.2 Seconds (11.1-14.7); SARS-CoV-2 RNA PCR Negative
[2022-05-30 09:06] LABS: Partial Thromboplastin Time 26.7 SECONDS (22.3-36.8)
[2022-05-30 09:16] LABS: D Dimer 0.49 ug/mL (<0.48)
[2022-05-30 09:32] VITALS: BP 121/85; PULSE 60; RESP 18; O2SAT 98
[2022-05-30 10:18] VITALS: BP 121/86; PULSE 68; RESP 18; O2SAT 97
== END 2022-05-30 10:20 | disposition home or self-care (01) ==
PROVIDERS: Emergency Provider Emergency Medicine; PCP Emergency Medicine
DX: R04.2 Hemoptysis (principal); J44.9 Chronic obstructive pulmonary disease, unspecified; Z20.822 Contact with and (suspected) exposure to COVID-19; Z85.3 Personal history of malignant neoplasm of breast; F17.200 Nicotine dependence, unspecified, uncomplicated; R06.02 Shortness of breath
CPT/HCPCS: 36415; 71045; 80053; 83735; 83880; 84484; 85025; 85380; 85610; 85730; 87502; 93005; 94640; 96360; 99284; J7030; U0003; U0005

== ENCOUNTER 2022-11-01 09:11 | Emergency (ER) | payer OTHER, SELFPAY ==
[2022-11-01 09:33] VITALS: BP 143/79; PULSE 66; RESP 16; TEMP 37.4; O2SAT 98
--- NOTE | 2022-11-01 10:01 | ED.FEMALEGU ---
HPI - Female Genitourinary General Chief complaint: Urogenital-Female Stated complaint: uti Time Seen by Provider: 11/01/22 10:03 Source: patient, RN notes reviewed and old records reviewed Mode of arrival: ambulatory Limitations: no limitations History of Present Illness HPI Narrative: 67-year-old female presents to the [facility] with complaints of urinary frequency, urgency burning as well as suprapubic cramping for 2-3 days. No treatment prior to arrival. History of UTIs. Denies any fevers, severe abdominal pain, chest pain. Denies urinary incontinence MD elicited complaint: UTI Onset (ago): day(s) (2-3) Related Data Home Medications Medication Instructions Recorded Confirmed albuterol sulfate 2.5 mg/3 mL 2.5 mg inhalation DIRECTED 11/01/22 11/01/22 (0.083 %) solution for nebulization Allergies Allergy/AdvReac Type Severity Reaction Status Date / Time codeine Allergy Unknown Itching Verified 11/01/22 09:23 Review of Systems Review of Systems: All systems reviewed & are unremarkable except as noted in HPI and below Constitutional: Constitutional: Reports no additional constitutional complaints Eyes: Eyes: Reports no additional eye complaints ENT: Reports system reviewed and no additional complaints, except as documented Cardiovascular: Cardiovascular: Reports no additional cardiovascular complaints, Denies chest pain and Denies dyspnea Respiratory: Respiratory: Reports no additional respiratory complaints, Denies chest congestion, Denies cough and Denies dyspnea Gastrointestinal: Gastrointestinal: Reports no additional gastrointestinal complaints, Denies abdominal pain, Denies nausea and Denies vomiting Genitourinary: Genitourinary: Reports as per HPI and Reports urinary urgency Musculoskeletal: Musculoskeletal: Reports no additional musculoskeletal complaints Integumentary/Breasts: Skin/Breast: Reports system reviewed and no additional complaints, except as docu Neurologic: Reports system reviewed and no additional complaints, except as documented Psychiatric: Psychiatric: Reports no additional psychiatric complaints Allergic/Immunologic: Allergic/Immunologic: Reports no additional allergic/immunologic complaints [facility] Past Medical History Medical History Breast cancer COPD (chronic obstructive pulmonary disease) Social History Social History Social History: denies alcohol or drug use. Heavy smoker. Smoking status: Current every day smoker Comments At the time of my signature, I reviewed and agree with the nursing past medical, surgical, social, and family history. There is no relevant family history pertinent to the patient complaint. Exam Const: General: cooperative, healthy appearing, comfortable, no acute distress, well developed, alert and well nourished Nutritional Appearance: well nourished Orientation/consciousness: patient oriented x3 Limitations: no limitations HENMT: Head: normal to inspection Ears: hearing grossly normal bilaterally and external ears normal Face/Nose/Sinus: Normal external nose present, Normal nares present, Normal nasal mucous membranes and turbinates present and normal facial exam Face and sinus: normal facial exam Mouth: Yes Normal oral and palatal mucosa present, Yes lip normal and Yes moist mucous membranes Throat: posterior oropharynx normal and uvula midline Eyes: General: appearance normal, both eyes and all related structures Alignment and Position: alignment normal Periorbital: periorbital findings normal Conjunctivae: conjunctivae normal Pupils: Equal, round and reactive pupils present EOM: EOMs intact bilaterally Neck: Neck: normal visual inspection, full ROM, no lymphadenopathy and no meningeal signs Chest: Chest palpation & inspection: normal inspection of the chest Resp: Effort & Inspection: normal respiratory effort and
== END 2022-11-01 10:15 | disposition home or self-care (01) ==
PROVIDERS: Emergency Provider Nurse Practitioner; PCP Emergency Medicine
DX: N30.01 Acute cystitis with hematuria (principal); J44.9 Chronic obstructive pulmonary disease, unspecified; Z85.3 Personal history of malignant neoplasm of breast; F17.200 Nicotine dependence, unspecified, uncomplicated
CPT/HCPCS: 81003; 87077; 87086; 87186; 99213; G0463

== ENCOUNTER 2023-08-16 16:30 | Emergency (ER) | payer MEDICARE, SELFPAY ==
[2023-08-16 16:52] VITALS: BP 142/79; PULSE 57; RESP 16; TEMP 37.4; O2SAT 98
--- NOTE | 2023-08-16 17:10 | ED.UPPEXIN ---
HPI - Extremity Injury (Upper) General Chief Complaint: Extremity Injury, Upper Stated Complaint: right middle finger injury Time Seen by Provider: 08/16/23 17:10 Source: patient Mode of arrival: ambulatory Limitations: no limitations History of Present Illness HPI narrative: 67 yo F presents with skin avulsion to distal aspect R middle finger. got finger caught in her sliding door. Bleeding controlled. ROM intact. all systems reviewed and negative except as noted above. Related Data Home Medications Medication Instructions Recorded Confirmed albuterol sulfate 2.5 mg/3 mL 2.5 mg inhalation DIRECTED 11/01/22 08/16/23 (0.083 %) solution for nebulization atorvastatin 40 mg tablet 40 mg PO DAILY 08/16/23 08/16/23 tiotropium 2.5 mcg-olodaterol 2.5 2 puff inhalation DAILY 08/16/23 08/16/23 mcg/actuation mist for inhalation (Stiolto Respimat) Allergies Allergy/AdvReac Type Severity Reaction Status Date / Time codeine Allergy Unknown Itching Verified 08/16/23 17:01 Review of Systems Review of Systems: CONSTITUTIONAL: Denies fever, chills, or sweats. EYES: Denies visual changes, redness, or discharge. ENT: Denies rhinorrhea, congestion, sore throat, or otalgia. CARDIOVASCULAR: Denies chest pain, palpitations, or edema. RESPIRATORY: Denies cough or dyspnea. GASTROINTESTINAL: Denies abdominal pain, nausea, vomiting, or diarrhea. GENITOURINARY: Denies dysuria or hematuria. SKIN: Denies rash or itching. reports finger avulsion to R middle finger. MUSCULOSKELETAL: Denies back pain, joint pain, or myalgia. NEUROLOGIC: Denies headache, numbness, or weakness. PSYCHIATRIC: Denies anxiety or depression. All other systems reviewed are negative, except as documented in HPI. [facility]LY [facility] Past Medical History Medical History Breast cancer COPD (chronic obstructive pulmonary disease) Social History Social History Social History: denies alcohol or drug use. Heavy smoker. Smoking status: Current every day smoker Comments At time of signature, agree with nursing past medical, surgical, social and family history. There is no relevant family history pertinent to the presenting complaint. Exam Narrative: GENERAL: This is a well-nourished, well-developed patient, in no apparent distress. HEAD: normocephalic, atraumatic. EYES: PERRL. Sclera clear/white. Vision is grossly intact. EARS: External ears normal NOSE: External nose normal NECK: Neck supple, non-tender without lymphadenopathy, masses or thyromegaly. CARDIOVASCULAR: Regular rate and rhythm without murmurs, gallops, or rubs. RESPIRATORY: Clear to auscultation. Breath sounds equal bilaterally. No wheezes, rales, or rhonchi. SKIN: warm, Dry, no suspicious lesions or rash, good texture and turgor. skin avulsion distal aspect R middle finger approx. 1cm diameter. bleeding controlled. NEURO: awake, alert, and oriented to person, place and time. There were no obvious focal neurologic abnormalities. EXTREMITIES: No joint tenderness, effusion, or edema noted. Course Course Level of Care: Express Care Visit Vital Signs Vital signs: Vital Signs Temperature 37.4 C 08/16/23 16:52 Pulse Rate 57 L 08/16/23 16:52 Respiratory Rate 16 08/16/23 16:52 Blood Pressure 142/79 H 08/16/23 16:52 Pulse Oximetry 98 08/16/23 16:52 Oxygen Delivery Room Air 08/16/23 16:52 Temperature 37.4 C 08/16/23 16:52 Pulse Rate 57 L 08/16/23 16:52 Respiratory Rate 16 08/16/23 16:52 Blood Pressure 142/79 H 08/16/23 16:52 Pulse Oximetry 98 08/16/23 16:52 Oxygen Delivery Room Air 08/16/23 16:52 reviewed Procedures Other Procedure Procedure 1: Other Procedure: surgicel placed to R middle finger with tube gauze. MDM - Extremity Injury (Upper) MDM Narrative Medical decision making narrative: Patient is aware of diagn
[2023-08-16] MEDS: CELLULOSE OXIDIZED 2 x 14 INCH 1 PKT XX (17:20)
== END 2023-08-16 17:35 | disposition home or self-care (01) ==
PROVIDERS: Emergency Provider Nurse Practitioner Family; PCP Family Medicine
DX: S61.202A Unspecified open wound of right middle finger without damage to nail, initial encounter (principal); X58.XXXA Exposure to other specified factors, initial encounter; J44.9 Chronic obstructive pulmonary disease, unspecified; Z85.3 Personal history of malignant neoplasm of breast; F17.200 Nicotine dependence, unspecified, uncomplicated
CPT/HCPCS: 99213; G0463

== ENCOUNTER 2023-09-07 17:32 | Emergency (ER) | payer MEDICARE, SELFPAY ==
--- NOTE | 2023-09-07 17:39 | ED.FEMALEGU ---
HPI - Female Genitourinary General Chief complaint: Urogenital-Female Stated complaint: UTI Time Seen by Provider: 09/07/23 17:39 Source: patient Mode of arrival: ambulatory Limitations: no limitations History of Present Illness HPI Narrative: Patient is a 67-year-old female who presents with 3-4 days of burning with urination, increased frequency, urgency. Denies any low back pain. Patient has been taking Pyridium. Patient was seen by Urology the end of July and was told there were no stones or abnormalities found. MD elicited complaint: dysuria Related Data Home Medications Medication Instructions Recorded Confirmed albuterol sulfate 2.5 mg/3 mL 2.5 mg inhalation DIRECTED 11/01/22 09/07/23 (0.083 %) solution for nebulization atorvastatin 40 mg tablet 40 mg PO DAILY 08/16/23 09/07/23 tiotropium 2.5 mcg-olodaterol 2.5 2 puff inhalation DAILY 08/16/23 09/07/23 mcg/actuation mist for inhalation (Stiolto Respimat) cholecalciferol (vitamin D3) 1,250 1,250 mcg PO WEEKLY 09/07/23 09/07/23 mcg (50,000 unit) capsule meloxicam 15 mg tablet 15 mg PO DIRECTED 09/07/23 09/07/23 Allergies Allergy/AdvReac Type Severity Reaction Status Date / Time codeine Allergy Unknown Itching Verified 09/07/23 17:51 Review of Systems Review of Systems: All systems reviewed & are unremarkable except as noted in HPI and below Constitutional: Constitutional: Denies chills, Denies fever(s), Denies headache(s), Denies malaise and Denies weakness Eyes: Eyes: Denies change in vision, Denies eye discharge and Denies irritation ENT: Denies otalgia, Denies headache(s), Denies nasal congestion, Denies nasal discharge, Denies sinus pain and Denies sore throat Cardiovascular: Cardiovascular: Denies chest pain, Denies edema, Denies palpitations and Denies dyspnea Respiratory: Respiratory: Denies cough and Denies dyspnea Gastrointestinal: Gastrointestinal: Denies abdominal pain, Denies diarrhea, Denies nausea and Denies vomiting Genitourinary: Genitourinary: Denies hematuria, Reports nocturia, Reports dysuria, Denies flank pain and Reports urinary urgency Musculoskeletal: Musculoskeletal: Denies back pain and Denies numbness Integumentary/Breasts: Skin/Breast: Denies pruritus and Denies rash Neurologic: Denies headache(s), Denies numbness and Denies weakness Psychiatric: Psychiatric: Reports no additional psychiatric complaints Endocrine: Endocrine: Denies palpitations PMFSH Past Medical History Medical History Breast cancer COPD (chronic obstructive pulmonary disease) Social History Social History Social History: denies alcohol or drug use. Heavy smoker. Smoking status: Current every day smoker Comments At time of signature, agree with nursing past medical, surgical, social and family history. There is no relevant family history pertinent to the presenting complaint. Exam Const: General: cooperative, healthy appearing, comfortable, no acute distress and well nourished Nutritional Appearance: well nourished Orientation/consciousness: patient oriented x3 HENMT: Head: normocephalic and atraumatic Ears: external ears normal Face/Nose/Sinus: Normal external nose present, Normal nares present and normal facial exam Face and sinus: normal facial exam Eyes: General: appearance normal, both eyes and all related structures Pupils: Equal, round and reactive pupils present EOM: EOMs intact bilaterally Neck: Neck: normal visual inspection, full ROM and supple Chest: Chest palpation & inspection: normal inspection of the chest Resp: Effort & Inspection: normal respiratory effort and able to speak in complete sentences Cardio: Rate: regular rate Rhythm: regular rhythm GI: Inspection: normal to inspection GI Palp: No abdominal tenderness and Yes Soft to palpation : General: Yes no CVA tenderness Back/S
[2023-09-07 17:55] VITALS: BP 125/77; PULSE 62; RESP 16; TEMP 37.1; O2SAT 97
== END 2023-09-07 18:30 | disposition home or self-care (01) ==
PROVIDERS: Emergency Provider Nurse Practitioner Family; PCP Family Medicine
DX: N30.01 Acute cystitis with hematuria (principal); J44.9 Chronic obstructive pulmonary disease, unspecified; F17.200 Nicotine dependence, unspecified, uncomplicated; Z79.899 Other long term (current) drug therapy; Z79.1 Long term (current) use of non-steroidal anti-inflammatories (NSAID); Z85.3 Personal history of malignant neoplasm of breast
CPT/HCPCS: 81003; 87086; 99213; G0463

== ENCOUNTER 2024-10-13 18:21 | Emergency (ER) | payer MEDICARE, SELFPAY ==
[2024-10-13 18:32] VITALS: BP 137/103; PULSE 76; RESP 18; TEMP 36.6; O2SAT 96
--- NOTE | 2024-10-13 18:36 | ED.FEMALEGU ---
HPI - Female Genitourinary General Chief complaint: Urogenital-Female Stated complaint: UTI Time Seen by Provider: 10/13/24 18:36 Source: patient Mode of arrival: ambulatory Limitations: no limitations History of Present Illness HPI Narrative: 69-year-old female presents with complaint of malodorous urine, urinary frequency, burning and pain to right lower suprapubic area. His symptoms for 4 days. Afebrile. Positive chills. Denies nausea vomiting. Also reports vaginal itching to her outer lips . No vaginal discharge. Reports vaginal itching started with urinary symptoms. All systems reviewed and negative except as noted above. Related Data Home Medications ?Medication ?Instructions ?Recorded ?Confirmed ?Last Taken ?Type albuterol sulfate 2.5 mg/3 mL 2.5 mg inhalation DIRECTED 11/01/22 09/07/23 Unknown History (0.083 %) solution for nebulization atorvastatin 40 mg tablet 40 mg PO DAILY 08/16/23 09/07/23 Unknown History tiotropium 2.5 mcg-olodaterol 2.5 2 puff inhalation DAILY 08/16/23 09/07/23 Unknown History mcg/actuation mist for inhalation (Stiolto Respimat) cholecalciferol (vitamin D3) 1,250 1,250 mcg PO WEEKLY 09/07/23 09/07/23 Unknown History mcg (50,000 unit) capsule meloxicam 15 mg tablet 15 mg PO DIRECTED 09/07/23 09/07/23 Unknown History Allergies Allergy/AdvReac Type Severity Reaction Status Date / Time codeine Allergy Unknown Itching Verified 10/13/24 18:22 Review of Systems Review of Systems: CONSTITUTIONAL: Denies fever, chills, or sweats. EYES: Denies visual changes, redness, or discharge. ENT: Denies rhinorrhea, congestion, sore throat, or otalgia. CARDIOVASCULAR: Denies chest pain, palpitations, or edema. RESPIRATORY: Denies cough or dyspnea. GASTROINTESTINAL: Denies abdominal pain, nausea, vomiting, or diarrhea. GENITOURINARY: Reports dysuria , malodorous. reports vaginal itching. Denies hematuria. SKIN: Denies rash or itching. MUSCULOSKELETAL: Denies back pain, joint pain, or myalgia. NEUROLOGIC: Denies headache, numbness, or weakness. PSYCHIATRIC: Denies anxiety or depression. All other systems reviewed are negative, except as documented in HPI. [facility] Past Medical History Medical History Breast cancer COPD (chronic obstructive pulmonary disease) Social History Social History Social History: denies alcohol or drug use. Heavy smoker. Smoking status: Current every day smoker Comments At time of signature, agree with nursing past medical, surgical, social and family history. There is no relevant family history pertinent to the presenting complaint. Exam Narrative: GENERAL: This is a well-nourished, well-developed patient, in no apparent distress. HEAD: normocephalic, atraumatic. EYES: PERRL. Sclera clear/white. Vision is grossly intact. EARS: External ears normal NOSE: External nose normal NECK: Neck supple, non-tender without lymphadenopathy, masses or thyromegaly. CARDIOVASCULAR: Regular rate and rhythm without murmurs, gallops, or rubs. RESPIRATORY: Clear to auscultation. Breath sounds equal bilaterally. No wheezes, rales, or rhonchi. SKIN: warm, Dry, intact with no suspicious lesions or rash, good texture and turgor. NEURO: awake, alert, and oriented to person, place and time. There were no obvious focal neurologic abnormalities. EXTREMITIES: No joint tenderness, effusion, or edema noted. Course Course Level of Care: Express Care Visit Vital Signs Vital signs: Vital Signs Temperature 36.6 C 10/13/24 18:32 Pulse Rate 76 10/13/24 18:32 Respiratory Rate 18 10/13/24 18:32 Blood Pressure 137/103 H 10/13/24 18:32 Pulse Oximetry 96 10/13/24 18:32 Oxygen Delivery Room Air 10/13/24 18:32 Temperature 36.6 C 10/13/24 18:32 Pulse Rate 76 10/13/24 18:32 Respiratory Rate 18 10/13/24 18:32 Blood Pressure 137/103 H 10/13/24 18:32 Pulse Oximetry 96 10/13/24 18:32 Oxygen Delivery Room Air 10/13/24 18:32 Reviewed MDM - Female Genitourinary MDM Narrative Medical decision making narrative: urinalysis positive nitrites, trace leukocytes and trace blood. Will treat patient with antibiotic for urinary tract infection. Patient is well-appearing, nontoxic. Recommend follow-up with geospatial engineer if symptoms not improving. Please be advised this is a medical document. It is intended for [id number] communication. It is written in medical language and may contain unfamiliar abbreviations or verbiage. Medical documents are intended to carry relevant information, facts as evident, and the clinical opinion of the practitioner at the time of the encounter. This report may have been done utilizing a voice recognition system. Attempts have been made to correct errors. However, there may be uncorrected grammatical, spelling, and recognition errors present. The file time of this note does not necessarily represent the time of service. Lab Data Labs: Lab Results 10/13/24 Range/Units 18:38 POC Urine Color Dark POC Urine Clarity Cloudy POC Urine pH 7.0 POC Ur Specif [place] 1.020 POC Urine Protein Negative (Negative) POC Ur Glucose (UA) Negative (Negative) POC Urine Ketones Negative (Negative) POC Urine Blood Trace (Negative) POC Urine Nitrite Positive (Negative) POC Urine Bilirubin Negative (Negative) POC Urine Urobilinogen 1.0 POC U Leukocyte Esteras Trace (Negative) Discharge Plan Discharge Clinical Impression: Urinary tract infection, Vaginal pruritus Patient Disposition: Home, Self-Care Condition: Stable Instructions: Antibiotic Form, Urinary Tract Infection in Women (ED) Additional Instructions: take medications as prescribed. Apply nystatin triamcinolone cream to vaginal area to treat itching. Apply sparingly. Follow-up with your geospatial engineer if symptoms are not improving. Patient Language: Grenadian Prescriptions: New amoxicillin-pot clavulanate [Augmentin] 500-125 mg tablet 1 tablet PO BID 5 Days Qty: 10 0RF nystatin-triamcinolone 100,000-0.1 unit/g-% cream 1 applic topical BID 7 Days Qty: 15 0RF Rx Instructions: apply sparingly to affected area fluconazole 150 mg tablet 150 mg PO ONCE 1 Days Qty: 1 0RF No Action atorvastatin 40 mg tablet 40 mg PO DAILY Stiolto Respimat 2.5-2.5 mcg/actuation mist 2 puff INHALATION DAILY meloxicam 15 mg tablet 15 mg PO DIRECTED cholecalciferol (vitamin D3) 1,250 mcg (50,000 unit) capsule 1,250 mcg PO WEEKLY albuterol sulfate 2.5 mg /3 mL (0.083 %) solution for nebulization 2.5 mg inhalation DIRECTED Follow-up/Referrals: Jonnie,Destinee George, [employer] JEWEL [Primary Care Provider] - Time of Disposition: 18:47
[2024-10-13 18:40] LABS: EDUAAPPEAR Cloudy; EDUABILI Negative (Negative); EDUABLOOD Trace (Negative); EDUACOLOR1 Dark; EDUAGLUCOSE Negative (Negative); EDUAKETONE Negative (Negative); EDUALEUKO Trace (Negative); EDUANITRATE Positive (Negative); EDUAPROTEIN Negative (Negative)
== END 2024-10-13 18:50 | disposition home or self-care (01) ==
PROVIDERS: Emergency Provider Nurse Practitioner Family; PCP Nurse Practitioner Family
DX: N39.0 Urinary tract infection, site not specified (principal); N89.8 Other specified noninflammatory disorders of vagina; J44.9 Chronic obstructive pulmonary disease, unspecified; Z85.3 Personal history of malignant neoplasm of breast; F17.200 Nicotine dependence, unspecified, uncomplicated
CPT/HCPCS: 81003; 87086; 99213; G0463

== ENCOUNTER 2025-01-27 13:07 | Outpatient (CLI) | payer MEDICARE, SELFPAY ==
--- NOTE | 2025-01-27 13:00 | ECG_ITS ---
Test Date: 2025-01-27 13:50:40 Measurements Intervals [place] Rate: 58 P: -12 NH: 143 QRS: 3 QRSD: 88 T: 28 QT: 377 QTc: 373 Interpretive Statements SINUS BRADYCARDIA LEFT VENTRICULAR HYPERTROPHY WITH ST-T CHANGE NONSPECIFIC T-WAVE ABNORMALITY- ANTEROLAT/INF LEADS BASELINE ARTIFACT- I, II, AVR, AVL, AVF, V4-V6 BORDERLINE ECG No previous ECG available for comparison Electronically Signed On 01-27-2025 13:53:08 CDT by Kj Boyce D.O.
--- OUTSIDE RECORDS SUMMARY | 2025-01-27 13:32 | XMS_ITS | Clinical Summary ---
Author Organization [facility] Address [address] [place] [address] Phone Care Team Providers Care Manager Category Name Role Phone Boaz Gautam Primary Care Provider [phone] Allergies Active Allergy Reactions Criticality Noted Date Comments Codeine Itching,Nausea 07/09/2015 Medications Stiolto Respimat 2.5-2.5 MCG/ACT Aerosol Solution INHALE 2 PUFFS BY MOUTH EVERY DAY 03/16/2023 Active meloxicam (MOBIC) 15 MG Tablet Take 1 Tablet by mouth daily. 02/24/2023 Active atorvastatin (LIPITOR) 40 MG Tablet Take 40 mg by mouth daily. 03/14/2023 Active Cholecalciferol (Vitamin D3) 1.25 MG (38022 UT) Capsule TAKE 1 CAPSULE BY MOUTH EVERY WEEK. 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 RUQ pain 10/29/2015 Secondary polycythemia 10/29/2015 Malignant neoplasm of upper- outer quadrant of right female breast 07/09/2015 Family History Medical History Relation Name Comments Stroke Brother Cancer Father Heart Attack Mother Hypertension Mother Diabetes Sister 1 Cancer Sister 2 Relation Name Status Comments Brother Father Mother Sister 1 Sister 2 Social History Tobacco Use Types Packs/Day Years Used Date Smoking Tobacco: Every Day Cigarettes 1.5 40 Smokeless Tobacco: Never Alcohol Use Standard Drinks/Week Comments No 0 (1 standard drink = 0.6 oz pur e alcohol) Comments No Sex and Gender Information Value Date Recorded Sex Assigned at Not on file Legal Sex Female 5:38 PM CDT Gender Identity Not on file Sexual Orientation Not on file Last Filed Vital Signs Vital Sign Reading Time Taken Comments Blood Pressure 134/72 03/24/2023 8:35 AM CDT Pulse 63 03/24/2023 8:35 AM CDT Temperature 36.6 C (97.8 F) 03/24/2023 8:35 AM CDT Respiratory Rate 18 03/24/2023 8:35 AM CDT Oxygen Saturation 90% 03/24/2023 8:35 AM CDT Inhaled Oxygen Concentration - - Weight 76.1 kg (167 lb 12.8 oz) 03/24/2023 8:35 AM CDT Height 154.9 cm (5' 1) 03/24/2023 8:35 AM CDT Body Mass Index 31.71 03/24/2023 8:35 AM CDT Plan of Treatment Health Maintenance Due Date Last Done Comments Hepatitis C Virus (HCV) Screening 1955 TdaP Immunization 1955 Pneumococcal Immunization (50+ years) (1 of 2 - PCV) 1973 Zoster Immunization (1 of 2) 1973 Cologuard 10/02/1999 Colonoscopy 10/02/1999 Colorectal Cancer Screening 10/02/1999 Immunochemical Fecal Occult Blood 10/02/1999 DEXA Bone Density 08/12/2017 08/12/2015 SARS-COV-2 Immunization ( season) 2024 10/10/2020, 10/06/2020 Mammogram 06/09/2024 06/09/2023, 0608/2020, 12/16/2019, Additional history exists Influenza Immunization (Season Ended) 2025 04/30/2020, 05/23/2019 Respiratory Syncytial Virus (RSV) Immunization (Adult) (1 - 1-dose 75+ series) 2029 Lung Cancer Screening Discontinued 12/25/2020 Hepatitis B Immunization Aged Out No longer eligible based on patient's age to complete this topic Human Papillomavirus (HPV) Immunization Aged Out No longer eligible based on patient's age to complete this topic Meningococcal Immunization (ACWY) Aged Out No longer eligible based on patient's age to complete this topic Rotavirus Immunization Aged Out No lo nger eligible based on patient's age to complete this topic Procedures Procedure Name Priority Date/Time Associated Diagnosis Comments CLEMENT DIAG BILATERAL DIGITAL W CAD W KAVON Routine 06/09/2023 Abnormal breast exam Personal history of breast cancer CLEMENT DEXA BONE DENSITY W/VERTEBRA FX ASSESS Routine 08/12/2015 Malignant neoplasm of upper-outer quadrant of right female breast (HCC) from Last 3 Months or Most Recently Relevant to Health Maintenance Results * CLEMENT DIAG BILATERAL DIGITAL W CAD W KAVON (06/09/2023) Anatomical Region Laterality Modality breast Bilateral Mammography us Hitesh Cabral DO IMG MAMMO ORDERABLES Final Res ult * CLEMENT DEXA BONE DENSITY W/VERTEBRA FX ASSESS (08/12/2015) Anatomical Region Laterality Modality BODY N/A Other us Tunde Rodriges MD IMG DEXA ORDERABLES Nesha l Result from Last 3 Months or Most Recently Relevant to Health Maintenance Insurance MEDICAID [facility] [facility] MEDICARE C HUMANA Care Teams Manager Category Relationship Specialty Start Date End Date Boaz Gautam [address] [place] [address] PCP - General Family Medicine 07/08/15
--- OUTSIDE RECORDS SUMMARY | 2025-01-27 13:32 | XMS_ITS | Clinical Summary ---
Author Organization [facility] Address [address] [place] [address] Care Team Providers Care Diesel Engine Erector Name Role Phone Boaz Gautam MD Primary Care Provider Allergies Active Allergy Reactions Criticality Noted Date Comments Codeine Nausea and Vomiting,Itching High 12/09/2014 Itching Other reaction(s): Vomiting Medications ergocalciferol (VITAMIN D2) 50,000 unit capsule Take 50,000 Units by mouth every 7 days . Active INCRUSE ELLIPTA 62.5 mcg/actuation Disk with Device INL 1 PUFF PO AT THE SAME TIME QD 11 9 Active PROAIR HFA 90 mcg/actuation inhaler INHALE 2 PUFFS PO Q 4 TO 6 H PRN 0 Active peg 3350-electrolyt es (COLYTE) 240-22.72-6.72 -5.84 gram solution peg 3350 240 gram-electrolyte s 22.72 gram-6.72 g-5.84 g powdr for soln Active portable oxygen Face to Face completed within 30 days: {yes no:[id number]::yes } Length of Need: {LENGTH OF NEED:[id number]:: 99} months By: {DAMON RX O2:[id number]} Active aspirin (MERCEDES) 325 mg tablet Take 81 mg by mouth. Active Paxlovid, EUA, 300 mg (150 mg x 2)-100 mg oral pack TK 2 NIRMATRELVIR TS AND 1 RITONAVIR T TOGETHER PO BID FOR 5 DAYS BID FOR 5 DAYS 2 Active sulfamethoxazol e-trimethoprim (BACTRIM DS) 800-160 mg tablet Take 1 Tablet by mouth every 12 hours. 2 Active traMADoL (ULTRAM) 50 mg tablet Take 50 mg by mouth every 6 hours as needed. 2 Active anastrozole (ARIMIDEX) 1 mg tabletIndicatio ns:Malignant neoplasm of upper-outer quadrant of right breast in female, estrogen receptor positive (CMS/HCC) TAKE 1 TABLET(1 MG) BY MOUTH DAILY 90 Tablet 4 2 Active Active Problems Problem Noted Date Diagnosed Date Erythrocytosis 03/21/2018 Lymphedema of breast 11/15/2017 History of external beam radiation therapy 11/15 Secondary malignant neoplasm of breast 8 Use of aromatase inhibitors 11/01/2017 Tobacco use 06/14/2017 Malignant neoplasm of upper- outer quadrant of right breast in female, estrogen receptor positive 03/22/2017 Resolved Problems Problem Noted Date Diagnosed Date Resolved Date Abnormal mammogram of right breast 12/28/2018 01/16/2019 Breast signs and symptoms 12/21/2018 Lump of left breast 02/14/2018 11/02/19 19 Family History Medical History Relation Name Comments Cancer Father Heart Disease Mother Cancer Sister 1 Diabetes Sister 2 Relation Name Status Comments Father Mother Sister 1 Sister 2 Social History Tobacco Use Types Packs/Day Years Used Date Smoking Tobacco: Every Day Cigarettes 0.5 45 Smokeless Tobacco: Never Tobacco Cessation:Ready to Q uit: Not Asked; Counseling Given: Not Answered Alcohol Use Standard Drinks/Week Comments No 0 (1 standard drink = 0.6 oz pur e alcohol) Comments No Sex and Gender Information Value Date Recorded Sex Assigned at Not on file Legal Sex Female 4:31 PM CDT Gender Identity Not on file Sexual Orientation Not on file Last Filed Vital Signs Vital Sign Reading Time Taken Comments Blood Pressure 130/82 09/22/2022 2:15 PM [employer]FFET [employer]NER Pulse 66 09/22/2022 2:15 PM [employer] Temperature 36.6 C (97.8 F) 09/22/2022 2:15 PM [employer]NER Respiratory Rate 20 09/22/2022 2:15 PM [employer]NER Oxygen Saturation 98% 09/22/2022 2:15 PM BUFFET [employer]NER Inhaled Oxygen Concentration - - Weight 75.4 kg (166 lb 3.2 oz) 09/22/2022 2:15 P M BUFFET [employer]NER Height 154.9 cm (5' 1) 03/09/2022 3:07 PM CDT Body Mass Index 31.4 03/09/2022 3:07 PM CDT Plan of Treatment Health Maintenance Due Date Last Done Comments ZOSTER VACCINE (1 of 2) 1973 COLORECTAL SCREENING 10/02/1999 Colorectal Cancer Screening 10/02/1999 FIT-DNA Q 3 years 10/02/1999 FIT/FOBT Q 1 year 10/02/1999 Flex Sig/CT Colonography Q 5 years 10/02/1999 RSV VACCINE (60+ or ) (1 - Risk 60-74 years 1-dose series) 2014 PNEUMOCOCCAL VACCINE 50+ YEA RS (2 of 2 - PPSV23) 02/01/2019 12/07/2018 OSTEOPOROSIS SCREENING 08/12/2020 08/12/2015 BREAST CANCER SCREENING 01/19/2022 01/20/20, 07/13/2020, 07/13/2020, Additional history exists INFLUENZA VACCINE (#1) 2024 04/30/2020, 2018 DTAP/TDAP/TD VACCINES (2 - T d or Tdap) 10/18/2027 10/17/2017 Procedures Procedure Name Priority Date/Time Associated Diagnosis Comments MAMMO 3D KAVON DIAGNOSTIC BILAT W OR WO CAD Routine 01/19/2021 Secondary malignant neoplasm of breast (CMS/HCC) from Last 3 Months or Most Recently Relevant to Health Maintenance Results * MAMMO DIAG BILAT 3D KAVON W OR WO CAD (01/19/2021) Anatomical Region Laterality Modality Breast Bilateral Mammography Darrell Salguero MD MAMMO ORDERABLES Final Result from Last 3 Months or Most Recently Relevant to Health [place] [address] [place] [employer]MANA GOLD PLUS [facility] Care Teams Diesel Engine Erector Relationship Specialty Start Date End Date Boaz Gautam MD [address] [place], [place] [address] [place] [address] PCP - General Family Practice 03/22/17
--- OUTSIDE RECORDS SUMMARY | 2025-01-27 13:32 | XMS_ITS | Data Portability ---
Author Organization [facility] [employer], Main Office Address [address] [place] [address] Assessment No assessment recorded. Plan of Treatment Reminders Order Date Submit Date Provider Last Modified By Organization Details Last Modified Time Details Appointments None recorded. Lab urinalysis, dipstick 2023 LIZETT [facility] [address], [place], [address], 15:54:06 lipid panel, serum [address] (Lab), [address] [place], [address], 10:05:22 hepatic function panel, serum [address] (Lab), [address] [place], [address], 10:05:22 CMP, serum or plasma [address] (Lab), [address] [place], [address], 10:05:22 TSH, serum or plasma [address] (Lab), [address] [place], [address], 10:05:22 CBC w/ auto diff [address] (Lab), [address] [place], [address], 4 10:05:23 glycohemogl obin, total, blood [address] (Lab), [address] [place], [address], 4 10:05:23 vitamin D, 25-hydroxy, total, serum [address] (Lab), [address] [place], [address], 4 10:05:22 alpha-1-ant itrypsin (aat) phenotype, serum [address] (Lab), [address] [place] [address], [address], 3 09:50:46 ige, total, serum [address] (Lab), [address] [place] [address], [address], 3 09:50:47 igg subclasses 1+2+3+4, serum [address] (Lab), [address] [place] [address], [address], 3 09:50:47 tb (M tuberculosi s), ifn-gamma gaby, blood [address] (Lab), [address] [place] [address], [address], 3 09:50:47 BNP (B-type natriuretic peptide), blood [address] (Lab), [address] [place] [address], [address], 3 09:50:47 alpha-1-ant itrypsin (aat), QN, serum [address] (Lab), [facility] [address], [place], [address], 3 09:50:47 rast class, qualitative , serum [address] (Lab), [address] [place] [address] [address], [place], [address], 3 09:50:47 eosinophils , auto, blood (OBS) [address] (Lab), [address] [place] [address] [address], [place], [address], 3 09:50:47 Referral None recorded. Procedures None recorded. Surgeries None recorded. Imaging MAMMO, screening, digital, bilateral - Please call pt to schedule [email or web address] [place] [address] Imaging Center, [address] [place] [address] [address], [place], [address], 4 10:36:04 Medication Orders Macrobid 100 mg capsule 2023 [facility] #75691, [address] [facility], [place], [place], [id number], 15:58:31 atorvastati n 40 mg tablet 2023 [facility] #47605, [address] [facility], [place], [id number], 4 15:47:10 cholecalcif henri (vitamin D3) 1,250 mcg (50,000 unit) capsule 2023 [facility] #92219, [address] [facility], [place], [id number], 4 15:47:09 meloxicam 15 mg tablet 2023 024 [facility] #15127, [address], [place], [place], [id number], 4 15:47:08 terconazole 0.8 % vaginal cream 2023 024 [facility] [facility] #49431, [address], [place], [place], [id number], 4 15:47:09 albuterol sulfate HFA 90 mcg/actuati on aerosol inhaler 2022 [email or web address] [place] [address] [facility] #45303, [address] [facility], [place], [place], [id number], 4 15:33:32 Stiolto Respimat 2.5 mcg-2.5 mcg/actuati on solution for inhalation [email or web address] [facility] #21860, [address] [facility], [place], [place], [id number], 4 15:33:22 Patient TargetsNo targets recorded. Patient Instructions Encounter Date Encounter Id Patient Instructions Last Modified By Organization Details Last Modified Time 01/06/2023 [id number] complete PFT w/ post bronchodilator spirometry* - Approved [id number] 01/10/2023-02/09/20 [email or web address] Not available 07/05/2023 10:57:27 Reason for Referral None Reported. Results Created Date Observation Date Name Description Value Unit Range Abnormal Flag Note LastModifiedBy Organization Detail LastModifiedTime 03/10/20 23 03/10/2023 CULTU RE URINE urc ===== ===== ===== ===== ===== ===== ===== ===== ===== ===== ===== ===== ===== ===== ===== ===== ===== ===== ===== ===== ===== ===== ===== ===== CULTU RE NO.: [id number] Exam Statu s: Final Exam Type: CULTU RE URINE ===== ===== ===== ===== ===== ===== ===== ===== ===== ===== ===== ===== ===== ===== ===== ===== ===== ===== ===== ===== ===== ===== ===== ===== Cultu re Repor t: Organ ism #01 Prote us mirab ilis (prom ir) Antib iotic s promi r Achie vable Achie vable (01) Dosag e Serum Level Urine Level mcg/m l mcg/m l Marianne dennis <=2 S 021D Ampic illin <=2 S 021D Ampic illin /Sulb actam <=2 S 021D Cefaz sanjay 8 S 021D Cefep moraima <=1 S 021D Cefox itin <=4 S 021D Ceftr iaxon e <=1 S 021D Cipro floxa dennis <=0.2 5 S 021D Genta micin <=1 S 021D Levof loxac in <=0.1 2 S 021D Merop enem <=0.2 5 S 021D Piper acill in./T azaba <=4 S 021D Tobra mycin <=1 S 021D Trmet hopri m.Sul fa <=20 S 021D rt - Test Card Code AST-G N 021D o2 - Final Organ ism PROTE U 021D af - Antib iotic Fami TRIME T 021D af - Antib iotic Famil y Na ap - Pheno type Name WILD 021D ap - Pheno type Name Nitro furan toin R 021D Not Available [facility] (Lab) [address], [place], [address], 03/12/2023 08:27:14 03/10/2003/10/2023 urina lysis , dipst ick Leukocytes (reference range: negative darrel/ l) Large Not Available [address], [place], [address], 03/09/2023 11:59:39 03/10/2003/10/2023 urina lysis , dipst ick Nitrite (reference rage: negative mg/dl) positi ve Not Available [address], [place], [address], 03/09/2023 11:59:39 03/10/20 23 03/10/2023 urina lysis , dipst ick Urobilinogen (reference range: 0.2-1 mg/dl) 0.2 Not Available [address], [place], [address], 03/09/2023 11:59:39 03/10/20 23 03/10/2023 urina lysis , dipst ick Protein (reference range: negative mg/dl) Large Not Available [address], [place], [address], 03/09/2023 11:59:39 03/10/20 23 03/10/2023 urina lysis , dipst ick pH (reference range: 5-7) 6.5 Not Available [address], [place], [address], 03/09/2023 11:59:39 03/10/20 23 03/10/2023 urina lysis , dipst ick Blood (reference range: negative Alhaji/ l) Large Not Available [address], [place], [address], 03/09/2023 11:59:39 03/10/20 23 03/10/2023 urina lysis , dipst ick Specific [place] (reference range: 1.005-1.030) 1.030 Not Available [address], [place], [address], 03/09/2023 11:59:39 03/10/20 23 03/10/2023 urina lysis , dipst ick Ketone (reference range: negative mg/dl) Negati ve Not Available [address], [place], [address], 03/09/2023 11:59:39 03/10/20 23 03/10/2023 urina lysis , dipst ick Bilirubin (reference range: negative mg/dl) Negati ve Not Available [address], [place], [address], 03/09/2023 11:59:39 03/10/20 23 03/10/2023 urina lysis , dipst ick Glucose (reference range: negative mg/dl) Negati ve Not Available [address], [place], [address], 03/09/2023 11:59:39 03/10/20 23 03/10/2023 urina lysis , dipst ick Appearance Cloudy Not Available [address], [place], [address], 03/09/2023 11:59:39 03/10/20 23 03/10/2023 urina lysis , dipst ick Color Dark Yellow Not Available [address], [place], [address], 03/09/2023 11:59:39 05/01/20 24 05/01/2024 urina lysis , dipst ick Leukocytes (reference range: negative darrel/ l) Trace Not Available [address], [place], [address], 05/01/2024 15:42:25 05/01/20 24 05/01/2024 urina lysis , dipst ick Nitrite (reference rage: negative mg/dl) positi ve Not Available [address], [place], [address], 05/01/2024 15:42:25 05/01/20 24 05/01/2024 urina lysis , dipst ick Urobilinogen (reference range: 0.2-1 mg/dl) 1 Not Available [address], [place], [address], 05/01/2024 15:42:25 05/01/20 24 05/01/2024 urina lysis , dipst ick Protein (reference range: negative mg/dl) Negati ve Not Available [address], [place], [address], 05/01/2024 15:42:25 05/01/20 24 05/01/2024 urina lysis , dipst ick pH (reference range: 5-7) 7.0 Not Available [address], [place], [address], 05/01/2024 15:42:25 05/01/20 24 05/01/2024 urina lysis , dipst ick Blood (reference range: negative Alhaji/ l) Negati ve Not Available [address], [place], [address], 05/01/2024 15:42:25 05/01/20 24 05/01/2024 urina lysis , dipst ick Specific [place] (reference range: 1.005-1.030) 1.020 Not Available [address], [place], [address], 05/01/2024 15:42:25 05/01/20 24 05/01/2024 urina lysis , dipst ick Ketone (reference range: negative mg/dl) Negati ve Not Available [address], [place], [address], 05/01/2024 15:42:25 05/01/2005/01/2024 urina lysis , dipst ick Bilirubin (reference range: negative mg/dl) Negati ve Not Available [address], [place], [address], 05/01/2024 15:42:25 05/01/20 24 05/01/2024 urina lysis , dipst ick Glucose (reference range: negative mg/dl) Negati ve Not Available [address], [place], [address], 05/01/2024 15:42:25 05/01/20 24 05/01/2024 urina lysis , dipst ick Appearance Clear Not Available [address], [place], [address], 05/01/2024 15:42:25 05/01/20 24 05/01/2024 urina lysis , dipst ick Color Pale Yellow Not Available [address], [place], [address], 05/01/2024 15:42:25 05/31/20 24 05/31/2024 urina lysis , dipst ick Leukocytes (reference range: negative darrel/ l) Trace Not Available [address], [place], [address], 05/31/2024 15:11:30 05/31/20 24 05/31/2024 urina lysis , dipst ick Nitrite (reference rage: negative mg/dl) positi ve Not Available [address], [place], [address], 05/31/2024 15:11:30 05/31/20 24 05/31/2024 urina lysis , dipst ick Urobilinogen (reference range: 0.2-1 mg/dl) 0.2 Not Available [address], [place], [address], 05/31/2024 15:11:30 05/31/20 24 05/31/2024 urina lysis , dipst ick Protein (reference range: negative mg/dl) Negati ve Not Available [address], [place], [address], 05/31/2024 15:11:30 05/31/20 24 05/31/2024 urina lysis , dipst ick pH (reference range: 5-7) 7.0 Not Available [address], [place], [address], 05/31/2024 15:11:30 05/31/20 24 05/31/2024 urina lysis , dipst ick Blood (reference range: negative Alhaji/ l) Non-He molyze d: Trace Not Available [address], [place], [address], 05/31/2024 15:11:30 05/31/20 24 05/31/2024 urina lysis , dipst ick Specific [place] (reference range: 1.005-1.030) 1.020 Not Available [address], [place], [address], 05/31/2024 15:11:30 05/31/20 24 05/31/2024 urina lysis , dipst ick Ketone (reference range: negative mg/dl) Negati ve Not Available [address], [place], [address], 05/31/2024 15:11:30 05/31/20 24 05/31/2024 urina lysis , dipst ick Bilirubin (reference range: negative mg/dl) Negati ve Not Available [address], [place], [address], 05/31/2024 15:11:30 05/31/20 24 05/31/2024 urina lysis , dipst ick Glucose (reference range: negative mg/dl) Negati ve Not Available [address], [place], [address], 05/31/2024 15:11:30 05/31/20 24 05/31/2024 urina lysis , dipst ick Appearance Slight ly Cloudy Not Available [address], [place], [address], 05/31/2024 15:11:30 05/31/20 24 05/31/2024 urina lysis , dipst ick Color Yellow Not Available [address], [place], [address], 05/31/2024 15:11:30 06/09/20 23 06/09/2023 MAMMO , scree ankit, bilat eral No observ ation record ed. [email or web address] [facility] [address] [place], [address], 12/08/2023 12:06:14 06/09/2006/09/2023 US ran felicia No observ ation record ed. [email or web address] [facility] [address], [place], [address], 12/08/2023 12:06:32 Result Notes None recorded. Problems Name Problem SNOMED Code Status Onset Date Resolution Date Notes Provider Name and Address Organization Details Recorded Time Recurrent urinary tract infection 382230104 Active 2022 SUNG Fuentes [address], [place], [address] , [facility] [employer] 3 10:30:58 Vitamin D deficienc y 45024188 Active 2022 SUNG Fuentes [address], [place], [address] , [facility] [employer] 3 10:35:42 Pain in both feet 65637674929 740183 Active 2022 SUNG Fuentes [address], [place], [address] , [facility] [employer] 3 10:30:12 Prediabet es 850302796 Active 2022 SUNG Fuentes [address], [place], [address] , [facility] [employer] 3 11:36:12 Hyperlipi demia 06182330 Active 2022 SUNG Fuentes [address], [place], [address] , [facility] [employer] 3 14:01:19 Urinary symptoms 459665552 Active 2022 DEXTER Alston [address], [place], [address] , [facility] 3 11:59:35 Acute urinary tract infection 816733431 Active 2022 DEXTER Alston [address], [place], [address] , [facility] 3 12:27:55 Dysuria 27826062 Active 2023 JOEY Brock [address], [place], [address] , [facility] 4 15:42:20 Candidias is of vagina 40987321 Active 2023 JOEY Brock [address], [place], [address] , [facility] 4 15:45:20 Obesity 727342325 Active 2023 JOEY Brock [address], [place], [address] , [facility] [employer] [facility] 4 23:19:09 Chronic obstructi ve pulmonary disease 51920675 Active 2018 Not Available [facility] 3 04:50:04 Acute exacerbat ion of chronic obstructi ve pulmonary disease 932665303 Active 2021 Not Available [facility] 3 04:50:04 Multiple nodules of lung 027656165 Active 2019 Not Available [facility] 3 04:50:04 Nicotine dependenc e 39962605 Completed 201811/11/2020 Not Available [facility] 3 04:50:04 Dyspnea on exertion 16032089 Active 2021 Not Available [facility] 3 04:50:04 Hemoptysi s 27860152 Active 2021 Not Available [facility] 3 04:50:04 Chronic cough 09637765 Active 2021 Not Available [facility] 3 04:50:04 COVID-19 311562702 Active 2021 Not Available [facility] 3 04:50:04 Ex-smoker 1765730 Completed 201911/11/2020 Not Available [facility] 3 04:50:05 Notes:Medical History: Nicot ine dependence Mild COPD DONITA 3 mm pulm nodule Obesity Hiatal hernia Bilateral adrenal adenomas Vit D deficiency Procedure History: Right lumpectomy/chemotherapy for ca 2014 Bronchoscopy for hemoptysis 2016 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 Procedures Surgical History Date Name Laterality Status Provider Name and Address Organization Details Recorded Time Medicare Wellness CPT Code, Initial completed SUNG Fuentes [address] [facility], [place], [address], [facility] [employer] [facility] 11/25/2022 08:51:28 Foot Surgery completed [facility] 09/28[facility]22 04:42:13 Breast Surgery completed Not Available [facility] 09/28/2022 04:42:13 repair of urinary bladder completed Not Available [facility] 09/28/2022 04:42:13 vulvectomy completed Not Available [facility] 09/28/2022 04:42:13 repair of rectum completed Not Available [facility] 09/28/2022 04:42:13 section completed Not Available [facility] 09/28/2022 04:42:13 Imaging Results None recorded. Procedure Notes None recorded. Medical Equipment None Reported. Allergies Allergen ID Allergen Name Allergen Category Reaction Reaction Severity Criticality Documentation Date Start Date Code Code System Note Provider Name and Address Organization Details Recorded Time 7628 codeine medicatio n vomiting Not available Not available 09/28/2022 2670 RxNorm Not Available [facility] 05:02:36 Medications Name Sig Start Date Stop Date Status Note LastModified by Organization Details LastModified Time amoxicillin 500 mg capsule 05/23 completed Not Available Not Available Not Available atorvastati n 40 mg tablet TAKE 1 TABLET BY MOUTH EVERY DAY active Not Available Not Available No t Available anastrozole 1 mg tablet 11/18 completed Not Available Not Available Not Available doxycycline hyclate 100 mg capsule Take 1 capsule twice a day by oral route as directed for 7 days. 11/18 completed Not Available Not Available Not Available nicotine 14 mg/24 hr daily transdermal patch APPLY 1 PATCH TOPICALLY TO THE SKIN EVERY DAY DIRECTED 11/03 completed Not Available Not Available Not Available albuterol sulfate 2.5 mg/3 mL (0.083 %) solution for nebulizatio n Inhale 3 mL 3 times a day by nebulizat ion route as directed for 30 days. 05/01 completed Not Available Not Available Not Available azithromyci n 250 mg tablet 05/23 completed Not Available Not Available Not Available ibuprofen 800 mg tablet 09/16 completed Not Available Not Available Not Available fluconazole 150 mg tablet TAKE 1 TABLET BY MOUTH 1 TIME FOR 1 DAY active Not Available Not Available No t Available cephalexin 250 mg capsule TAKE 1 CAPSULE BY MOUTH EVERY 8 HOURS FOR 10 DAYS 02/23 completed Not Available Not Available Not Available meloxicam 15 mg tablet Take 1 tablet every day by oral route. 2024 active Not Available Not Available Not Avai lable prednisone 20 mg tablet Take 2 tablets every day by oral route in the morning for 5 days. 11/18 completed Not Available Not Available Not Available alendronate 70 mg tablet 07/15 completed Not Available Not Available Not Available terconazole 0.8 % vaginal cream INSERT 1 APPLICATO RFUL VAGINALLY EVERY DAY active Not Available Not Available No t Available sulfamethox azole 800 mg-trimetho prim 160 mg tablet TAKE 1 TABLET BY MOUTH EVERY 12 HOURS FOR 10 DAYS active Not Available Not Available No t Available tramadol 50 mg tablet TAKE 1 TABLET BY MOUTH EVERY 6 HOURS NEEDED FOR PAIN 11/18 completed Not Available Not Available Not Available phenazopyri dine 100 mg tablet TAKE 2 TABLETS BY MOUTH THREE TIMES DAILY FOR 2 DAYS 02/23 completed Not Available Not Available Not Available doxycycline monohydrate 100 mg capsule TAKE 1 CAPSULE BY MOUTH TWICE DAILY FOR 7 DAYS 11/04 completed Not Available Not Available Not Available cephalexin 500 mg capsule TAKE 1 CAPSULE BY MOUTH TWICE DAILY FOR 7 DAYS 05/01 completed Not Available Not Available Not Available promethazin e 25 mg tablet 07/15 completed Not Available Not Available Not Available nicotine 21 mg/24 hr daily transdermal patch Apply 1 patch every day by transderm al route as directed for 30 days. 09/16 completed Not Available Not Available Not Available nystatin-tr iamcinolone 100,000 unit/g-0.1 % topical cream APPLY SPARINGLY TOPICALLY TO THE AFFECTED AREA TWICE DAILY FOR 7 DAYS active Not Available Not Available No t Available ergocalcife rol (vitamin D2) 1,250 mcg (50,000 unit) capsule 11/18 completed Not Available Not Available Not Available albuterol sulfate HFA 90 mcg/actuati on aerosol inhaler INHALE 2 PUFFS BY MOUTH EVERY 4 HOURS 05/01 completed Not Available Not Available Not Available amoxicillin 875 mg-potassiu m clavulanate 125 mg tablet TAKE 1 TABLET BY MOUTH EVERY 12 HOURS FOR 7 DAYS DIRECTED 11/03 completed Not Available Not Available Not Available amoxicillin 500 mg-potassiu m clavulanate 125 mg tablet TAKE 1 TABLET BY MOUTH TWICE DAILY FOR 5 DAYS active Not Available Not Available No t Available nicotine (polacrilex ) 2 mg buccal lozenge Take 1 tablet every 8 hours by oral route as directed for 30 days. 09/16 completed Not Available Not Available Not Available nitrofurant oin monohydrate /macrocryst als 100 mg capsule TAKE 1 CAPSULE BY MOUTH EVERY 12 HOURS FOR 5 DAYS active Not Available Not Available No t Available peg 3350 240 gram-electr olytes 22.72 gram-6.72 g-5.84 g powdr for soln 07/15 completed Not Available Not Available Not Available cholecalcif henri (vitamin D3) 1,250 mcg (50,000 unit) capsule TAKE 1 CAPSULE BY MOUTH WEEKLY. active Not Available Not Available No t Available Chantix Starting Month Box 0.5 mg (11)-1 mg (42) tablets in dose pack Take 1 tablet every day by oral route as directed for 30 days. 04/21 completed Not Available Not Available Not Available Incruse Ellipta 62.5 mcg/actuati on powder for inhalation INL 1 PUFF PO AT THE SAME TIME QD active Not Available Not Available No t Available Stiolto Respimat 2.5 mcg-2.5 mcg/actuati on solution for inhalation INHALE 2 PUFFS BY MOUTH EVERY DAY 05/01 completed Not Available Not Available Not Available bupropion HCl 150 mg tablet,12 hr sustained-r elease(smok ing deterrent) 07/15 completed Not Available Not Available Not Available fluticasone 113 mcg-salmete rol 14 mcg/actuati on breath activated powdr INL 1 PUFF PO BID 12 H APART AND AT THE SAME TIME QD active Not Available Not Available No t Available Paxlovid 300 mg (150 mg x 2)-100 mg tablets in a dose pack TK 2 NIRMATREL VIR TS AND 1 RITONAVIR T TOGETHER PO BID FOR 5 DAYS BID FOR 5 DAYS 11/18 completed Not Available Not Available Not Available Vitals Date Recorded Body height Body temperature Body mass index (BMI) Body weight Heart rate Oxygen saturation Oxygen saturation in Arterial blood by Pulse oximetry Systolic blood pressure Diastolic blood pressure Provider Name and Address Organization Details Last Updated DateTime 3 157.48 cm 97.2 [degF] 30.4 kg/m2 97796.3 3 g 57 /min 96 % 96 % 114 mm[Hg] 68 mm[Hg] Lori Reeder MA [place] [facility] [employer] 3 14:38:34 Date Recorded Body height Provider Name an d Address Organization Details Last Updated DateTime 03/10/2023 157.48 cm Shayy Rm LPN [place] [facility] [employer] 03/10/2023 10:59:55 Date Recorded Body weight Body temperature Oxygen saturation Oxygen saturation in Arterial blood by Pulse oximetry Heart rate Systolic blood pressure Diastolic blood pressure Provider Name and Address Organization Details Last Updated DateTime 4 63164.7 8 g 97.9 [degF] 95 % 95 % 70 /min 138 mm[Hg] 76 mm[Hg] Blake Prince RN [facility] [employer] 4 15:32:44 Social History Question Answer Notes LastModified by Organizat ion Details LastModified Time Tobacco Smoking Status Current Every Day Smoker Not Available [facility] 09/28/2022 04:06:58 What Is Your Level Of Caffeine Consumption? Moderate 2 Cups Of Coffee Every Am [id number] Information not available 09/28/2022 How Much Tobacco Do You Chew? None [id number] Information not available 09/28/2022 In The 14 Days Before Symptom Onset, Have You Had Close Contact With A Laboratory-confir med COVID-19 While That Case Was Ill? No [id number] Information not available 09/28/2022 In The 14 Days Before Symptom Onset, Have You Had Close Contact With A Person Who Is Under Investigation For COVID-19 While That Person Was Ill? No [id number] Information not available 09/28/2022 What Was The Date Of Your Most Recent Tobacco Screening? 01/06/2023 Information not available 01/06/2023 Have You Ever Been Counseled For Unhealthy Alcohol Use? No Information not available 11/18/2022 Do You Have Any Pets? No [id number] Information not available 09/28/2022 At What Age Did You Start Smoking Tobacco? 18 [id number] Information not available 09/28/2022 How Much Tobacco Do You Smoke? 0.5 PPD Information not available 01/06/2023 Do You Participate In Social Media? Yes Just To See Family Pictures [email or web address] Information not available 11/18/2022 Has Tobacco Cessation Counseling Been Provided? No [email or web address] Information not available 11/18/2022 How Many Years Have You Smoked Tobacco? 47 [id number] Information not available 09/28/2022 Have You Recently Traveled Abroad? No Information not available 01/06/2023 Have You Used IV Drugs? No [id number].[id number] Information not available 09/28/2022 Sex: Female Functional Status Question Answer Note LastModified by Organizat ion Details LastModified Time Do you use any illicit or recreational drugs? Yes Marijuana every once in awhile MIGRATION.[id number] Information not available 09/28/2022 Do you or have you ever used any other forms of tobacco or nicotine? No Information not available 11/18/2022 What is your level of alcohol consumption? Occasional maybe once a year MIGRATION.53567 [id number] Information not available 09/28/2022 Do you or have you ever used smokeless tobacco? Never used smokeless tobacco MIGRATION.21090 78146 Information not available 09/28/2022 Do you or have you ever used e-cigarettes or vape? Never used electronic cigarettes MIGRATION.94182 [id number] Information not available 09/28/2022 Mental Status Question Answer Note LastModified by Organization D etails LastModified Time Do you feel stressed (tense, restless, nervous, or anxious, or unable to sleep at night)? [id number] Information not available 11/18/2022 Family History Relationship Description Onset Age of this Age Resolved Age Notes LastModified by Organization Details LastModified Time Mother Hypertensive disorder [email or web address] Not available 2022 10:21:48 Brother Hypertensive disorder [email or web address] Not available 2022 10:21:48 Sister Hypertensive disorder Not available 2022 10:21:48 Sister Diabetes mellitus [email or web address] Not available 2022 10:21:59 Father Family history of malignant neoplasm Not available 2022 10:22:34 Medical History No medical history recorded. Gynecological HistoryNo gynecological history recorded. Obstetrics History GPAL:G 0 P 0 0 0 0 Immunizations Vaccine Type Date Status Note Provider Nam e and Address Organization Details Recorded Time COVID-19, mRNA, LNP-S, PF, 30 mcg/0.3 mL dose 10/10/2020 completed Not Available [facility] 3 05:02:00 Influenza, high-dose, quadrivalent, PF 04/30/2020 completed Not Available [facility] 3 05:02:01 Influenza, split virus, quadrivalent, PF 05/23/2019 completed Not Available [facility] 3 05:02:01 Past Encounters Encounter ID Performer Location Encounter Start Date Encounter Closed Date Diagnosis/Indication Diagnosis SNOMED-CT Code Diagnosis ICD10 Code Diagnosis Note [id number] [facility] [place] [address] [place] [address] 11/11/2020 00:00:00 11/11/2020 16:52:41 [id number] [facility] [place] [address] [place] [address] 01/21/2021 00:00:00 01/21/2021 15:32:59 [id number] [facility] [place] [address] [place] [address] 11/03/2021 00:00:00 11/03/2021 16:23:35 [id number] Albino Aiken MD [facility] [address] [address] 11/04/2021 00:00:00 11/04/2021 10:45:30 [id number] Stephanie Walker, [facility] [place] [address] [place] [address] 11/17/2021 00:00:00 11/17/2021 16:27:56 [id number] Stephanie Walker [facility] [place] [address] [place] [address] 02/23/2022 00:00:00 02/23/2022 14:48:54 [id number] Stephanie Walker [facility] [place] [address] [place] [address] 06/29/2022 00:00:00 06/29/2022 22:07:13 [id number] SUNG Fuentes [facility] Primary Care [facility] [address] [facility] [address] [place] [address] 11/18/2022 10:11:55 11/18/2022 10:54:33 Recurrent urinary tract infection 569377752 N39.0 Advised to increase water, states she is only drinking about 16oz per day, avoid sugary/caf feinated drinks. Continue cranberry supplement .Recheck urine. Will send referral to urology due to repeated infections . Vitamin D deficiency 347 53186 E55.9 Has not been on supplement recently. Diabetes m ellitus screening 722255047 Z13.1 Hyperlipid emia screening 445780496 Z13.220 [id number] SUNG Fuentes [facility] Primary Care [facility] [address] [facility] [address] [place] [address] 11/25/2022 10:00:47 11/25/2022 11:33:49 Adult health examination 392960010 Z00.00 Routine labs completed. Recommende d routine eye exams and dental cleanings. Shingles vaccine- recommende dPneumonia vaccine- pt. believes she had vaccinatio ns; will try to get recordsFlu vaccine- recommende d each fallTetanu s vaccine- 2Colono scopy- , recommende d to repeat in 5 yearsMammo gram- 03/02/22, wnlDEXA- pt. states she has had one, does not remember abnormalit ies; will try to get records. Screening for disorder 210952278 Z13.9 Pain in both feet 897293 6773 [id number] M79.671 M79.672 Mainly in heels. 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 If no improvemen t will refer to podiatry. Prediabetes 358513285 R7 3.03 (11/18/22) A1C 6.1Advised to work on diet/exerc ise, mainly decreasing carbs/suga rs.Will continue to monitor. Vitamin D deficiency 347 71511 E55.9 Started on weekly supplement . [id number] DEXTER [facility]ke[facility] [place] [address] [place] [address] 01/06/2023 14:28:52 01/06/2023 15:38:16 Chronic obstructive pulmonary disease 58370568 J44.9 PFT 03/2020 with FEV1 77% and ratio 55%.TLC 123%Plan to repeat - ordered todayConti myriam Nelson, she has good benefit from thisInstru cted on techniqueA lbuterol PRN, discussed indication s for useSix minute walk normal, saturation s 96% RA at rest todayAlpha 1 MM normal.neb ulizer for PRN useDiscuss ed reportable signs and symptoms.R TC in 4-6 months, PRN for concernsRX sent today Chronic cough 02647064 R 05.3 Multifacto ralSmoking cessation Dyspnea on exertion 6084 5006 R06.09 Check labs Hemoptysis 61699269 R04. 2 R05.3 R06.00 J44.9 ResolvedBr onchoscopy completed last year Nicotine dependence 5629 4008 Z87.891 Smoking cessation counseling and techniques reviewed at length. Literature reviewed. Avoid triggers, support groups. Distractio n techniques Greater than 3 but less than 10 minutes spent discussing cessation. Declines NRT. Discussed Rx options if needed in the future. [id number] DEXTER Alston [facility] Primary Care [place] [facility] [address] [facility] [address] [place] [address] 03/10/2023 10:42:08 03/10/2023 17:01:13 [id number] Kassidy Asencio MD [facility] Primary Care [place] [address] [facility] [address] [place] [address] 03/09/2023 17:17:23 04/29/2023 04:06:34 Urinary symptoms 479326279 R39.9 [id number] [facility] [place] [facility] [address] [facility] [address] [place] [address] 05/01/2024 15:23:53 05/01/2024 15:50:11 Adult health examination 391763906 Z00.01 Discussed medication compliance and routine follow up.Discuss ed healthy diet and routine exercise.Cecilia peckiewed vaccine records and made recommenda tions as needed.Enc ouraged annual eye and dental exams, as well as twice yearly dental cleanings. Will check screening labs as listed below. Screening mammography 24 660781 Z12.31 Pain in both feet 574533 9451 [id number] M79.671 M79.672 Will refill meds as listed below. Vitamin D deficiency 347 31305 E55.9 Hyperlipidemia 64478283 E78.5 Will continue current medication s and recheck labs as listed below. Dysuria 77247418 R30.0 Candidiasis of vagina 72 749577 B37.31 Discussed use of medication and need for follow up. Acute urin ruel tract infection 292529621 N39.0 Discussed medication compliance . Patient will follow up if symptoms do not improve after completion of antibiotic s or if symptoms worsen. Obesity 748713069 E66.9 Discussed healthy diet and routine exercise. [id number] JOEY Brock [facility] Primary Care [place] [address] [facility] [address] [place] [address] 05/31/2024 15:03:16 05/31/2024 15:42:07 Health Concerns Section Related Observation LastModified by Organization Detai ls LastModified Time None Recorded Concern Status LastModified by Organization Details LastModified Time None Recorded Advance Directives Directive None Recorded Payers Insurance Date Sequence Insurance Name Policy Number Policy Scott Covered Member ID Scott Member ID Guarantor Name 05/01/2024 3 [place] Streeter [id number] Carolina Streeter 12/21/2024 1 [employer] (MEDICARE REPLACEMENT/AD VANTAGE - PPO) [id number] Carolina Streeter [id number] Carolina Streeter 05/01/2024 2 [place] [facility] Carolina Streeter [id number] Carolina Streeter 07/23/2024 2 [employer] [place] (MEDICAID [place]AC[place] - HMO) Carolina Streeter [id number] Carolina Streeter Notes Date Note Type Note Provider Name and Address Organization Details Recorded Time 3 text/html Ana presents today to follow up on COPD, hemoptysis, cough, dyspnea, nicotine dependenceShe has gotten another job and has been doing well, no difficulty completing job dutiesContinues Stiolto daily with good benefitAlbuterol MDI use intermittently - weather dependentNo recent hemoptysis or chest pain.Cough is dailyWheezing is intermittentTobacco use has decreased to at about 1/2 PPD.She has had no exacerbation since last OV Stephanie Walker, [facility] [address] [facility], [place] [address], [place], [address], [facility] 01/06/2023 16:27:11 4 text/html Patient is a 68 year old female that presents to the office for annual wellness. Patient reports she is doing well on current medications, denies chest pain and shortness of breath, nausea vomiting and diarrhea. Patient reports vaginal irritation, dysuria and urinary frequency. Patient reports vaginal itching. Patient denies urinary urgency and hesitancy. Patient denies hematuria. Patient denies flank pain and pelvic pain, vaginal pain and discharge. patient denies treatment of symptoms. lpyl-ckadqqwJyznccbsr-up deredColonoscopy-UTDDEXA -MCOIea-gwvdctyiIfviq-XQ WGtqm-BFWKsdauxdk-ixiiai esPneumo-UTD JOEY Brock [address] [facility], [facility] [address], [place], [address], [place] [facility] 05/01/2024 23:19:55 OBGyn Episode No OBEpisode recorded.
--- OUTSIDE RECORDS SUMMARY | 2025-01-27 13:32 | XMS_ITS | Continuity of Care Document ---
Author Organization [facility] Address [address] [place] [address] Phone Care Team Providers Care Stone And Concrete Washer Name Role Phone Boaz Gautam MD Unavailable Unavailable Allergies, Adverse Reactions, Alerts Substance Reaction Status Criticality codeine Active No Information Medications Medication Instructions Dosage Effective Dates (start - stop) Status Comments Ventolin HFA 90 mcg/actuation aerosol inhaler inhale 2 puff by inhalation route every 4 - 6 hours as needed as needed - Active PRN for sob Fosamax 70 mg tablet take 1 tablet by oral route every week in the morning, at least 30 min before first food, beverage, or medication of day 70 MG - Active do not lie lexie n x 30 mins after pill anastrozole 1 mg tablet take 1 tablet by oral route every day 1 MG - Active Vitamin D2 50,000 unit capsule take 1 capsule by oral route every week - Active Incruse Ellipta 62.5 mcg/actuation powder for inhalation inhale 1 puff by inhalation route every day at the same time each day 62.5 MCG - Active AirDuo RespiClick 113 mcg-14 mcg/actuation breath activated inhale 1 puff by inhalation route 2 times every day approximately 12 hours apart at the same time each day - Active Procedures Procedure Date OFFICE/OUTPATIENT VISIT, EST PREV VISIT, EST, AGE 40-64 OFFICE/OUTPATIENT VISIT, EST OFFICE/OUTPATIENT VISIT, EST OFFICE/OUTPATIENT VISIT, EST OFFICE/OUTPATIENT VISIT, EST OFFICE/OUTPATIENT VISIT, EST PREV VISIT, EST, AGE 40-64 OFFICE/OUTPATIENT VISIT, EST OFFICE/OUTPATIENT VISIT, EST PREV VISIT, NEW, AGE 40-64 Advance Directives Directive Yes / No Effective Date File Name No Information Encounters Encounter Description Practice Location Reason(s) For Visit Diagnoses Date Provider Providers Copied on Encounter [facility], [address], [place], [place], [address], tel:[phone] [facility] No Information 9 Dain Sandra. [address], [place], [place], [address] , [place]. tel:[phone] Referring Provider: Lukasz Odom [address], [place], [place], [address]. tel:[phone] OFFICE/OUTPA TIENT VISIT, EST [facility], [address], [place], [place], [address], [place] tel:[phone] [facility] osteoporos is1 (chief complaint) polycythem ia1 (chief complaint) glucose1 (chief complaint) COPD1 (chief complaint) hand (chief complaint) abrasion1 (chief complaint) OsteoporosisEmphyse maSecondary polycythemiaHypergl ycemia 0 9 Dain Sandra. [address], [place], [place], [address] , [place]. tel:[phone] Referring Provider: Lukasz Odom [address], [place], [place], [address]. tel:[phone] PREV VISIT, EST, AGE 40-64 [facility], [address], [place], [place], [address], [place] tel:[phone] [facility] Medicine PHysical (chief complaint) Encounter for general adult medical exam w abnormal findingsSecondary polycythemiaEmphyse maOsteoporosisHyper lipidemia 9 Dain Sandra. [address], [place], [place], [address] , [place]. tel:[phone] Referring Provider: Lukasz Odom [address], [place], [place], [address]. tel:[phone] OFFICE/OUTPA TIENT VISIT, [facility], [address], [place], [place], [address], [place] tel:[phone] [facility] COPD1 (chief complaint) Body mass index (BMI) 31.0-31.9, adultEmphysema 8 Dain Duvall [address], [place], [place], [address] , [place]. tel:[phone] Referring Provider: Lukasz Odom [facility] [address], [place], [place], [address]. tel:[phone] OFFICE/OUTPA TIENT VISIT, [facility], [address], [place], [place], [address], [place] tel:[phone] [facility] osteopenia 1 (chief complaint) COPD1 (chief complaint) HLp (chief complaint) polycyther mia1 (chief complaint) HyperlipidemiaSecon coco polycythemiaOth disrd of bone density and structure, unspecified siteEmphysemaHyperg lycemia 8 Dain Duvall [address], [place], [place], [address] , [place]. tel:[phone] Referring Provider: Lukasz Odom [address] [facility] [[email or web address]] [address], [place], [place], [address]. tel:[phone] OFFICE/OUTPA TIENT VISIT, [facility], [address], [place], [place], [address], [place] tel:[phone] [facility] COPD1 (chief complaint) tobacco1 (chief complaint) HTn (chief complaint) breast CA1 (chief complaint) Body mass index (BMI) 32.0-32.9, adultEmphysemaTobac co useMalignant neoplasm of nipple and areola, right female breastEssential (primary) hypertension 8 Dain Duvall [address], [place], [place], [address] , [place]. tel:[phone] Referring Provider: Lukasz Odom [address], [place], [place], [address]. tel:[phone] OFFICE/OUTPA TIENT VISIT, EST [facility], [address], [place], [place], [address], [place] tel:[phone] [facility] Medicine copd1 (chief complaint) tobacco1 (chief complaint) polycyther mia1 (chief complaint) Body mass index (BMI) 31.0-31.9, adultEmphysemaTobac co useSecondary polycythemia Sep-2 8 Dain Sandra. [address], [place], [place], [address] , [place]. tel:[phone] Referring Provider: Lukasz Odom [address], [place], [place], [address]. tel:[phone] PREV VISIT, EST, AGE 40-64 [facility], [address], [place], [place], [address], [place] tel:[phone] [facility] PHysical (chief complaint) Encounter for general adult medical exam w abnormal findingsHemoptysisE mphysemaMalignant neoplasm of nipple and areola, right female breast 0 7 Dain Sandra. [address], [place], [place], [address] , [place]. tel:[phone] Referring Provider: Lukasz Odom [address], [place], [place], [address]. tel:[phone] OFFICE/OUTPA TIENT VISIT, EST [facility], [address], [place], [place], [address], [place] tel:[phone] [facility] Medicine vitamin D (chief complaint) H&H (chief complaint) mammogram (chief complaint) Breast noduleHemoglobin diseaseVitamin D deficiencyHeel spur Trever-0 2201 5 Dain Duvall [address], [place], [place], [address] , [place]. tel:[phone] Referring Provider: Lukasz Odom [address], [place], [place], [address]. tel:[phone] PREV VISIT, NEW, AGE 40-64 [facility], [address], [address], tel:[phone] [facility] Medicine Physical (chief complaint) Routine Medical ExamRoutine Medical Exam 5 Dain Sandra. [address], [address] , [place]. tel:[phone] Family History Family Member Type Diagnosis Age At Onset Mother Problem (finding) Coronary artery disease 60 Father Problem (finding) Multiple myeloma Brother Problem (finding) COPD Payers Payer name Insurance type Covered constitution party ID Authoriza tion(s) No Information Social History Type Description Quantity Date Captured Comments Alcohol Use Details Unknown Caffeine Use Details Unknown Tobacco Use Status Smoking Status No Information Sex Female Chief Complaint And Reason For Visit No Information Plan Of Treatment Date Type Action Status Goal Special diet education compl eted Goal Tobacco cessation counseling completed Goal Special diet education compl eted Goal Tobacco cessation counseling completed Goal Special diet education compl eted Goal Special diet education compl eted Goal Special diet education compl eted Goal Special diet education compl eted Goal Tobacco cessation counseling completed Referral Ordered: Pulmonology (related to Emphysema) ordered Referral Ordered: Pulmonology (related to Emphysema) ordered Referral Ordered: Referrals: Pulmonology. Evaluate and treat ordered Referral Ordered: MAMMOGRAM, BOTH BREASTS ordered Referral Ordered: CT THORAX W/O DYE ordered Referral Ordered: Otolaryngology (related to Hemoptysis) ordered Referral Ordered: Referrals: Otolaryngology. Evaluate and treat ordered Referral Ordered: DXA BONE DENSITY, AXIAL ordered Referral Ordered: Surgery (related to Breast nodule) ordered Referral Ordered: MAMMOGRAM, ONE BREAST ordered Referral Ordered: Referrals: Surgery ordered Referral Ordered: COLONOSCOPY AND BIOPSY ordered Referral Ordered: MAMMOGRAM, SCREENING ordered History Of Present Illness Encounter Date Complaint History Of Prese nt Illness abrasion1 Pt cut back of h er hand by glass door knob last week. Pt does not have any bone injury. Pt went to urgent care and was glued. Pt denies any pain pt denies any drainage or redness. Pt denies any numbness or tingling or weakness of finger or hand COPD1 Pt has COPD Pt h as not done PFt yet pt is taking airduo and incruse and ventolin PRN. Pt uses ventolin 1-2 per day. Pt denies any hemoptysis, worsening cough or sob. glucose1 Pt has high gluc ose pt denies any polyuria, polydipsia hand polycythemia1 Pt has polycythe araceli. Pt has normal iron. Pt actually is getting phlebotomy regularly every other month. osteoporosis1 Pt has osteoporo sis. pt started fosamax and she is on calcium and D. Pt denies any jaw or bone pain. Pt denies any GI issue. Pt has low D PHysical Pt needs annual physical. Pt uses Airduo and also incruse daily Pt uses ventolin 4-5 times per week. Pt has chronic cough when she lies down Pt denies any hemoptysis, chronic cough ,etc. Pt has osteopenia Pt takes calcium and D. Pt has right lumpectomy due to breast CA. Pt had radiation therapy. pt sees oncology and also breast specialist. P will see purnima next week. Pt denies any breast issue Pt denies any acute sob. pt has polycythemia. Pt sees hematology. Pt gets regular phlebotomy per hematology. Pt denies any snoring or any trouble with breathing at night. Pt denies any fatigue COPD1 Pt has COPD Pt t akes incruse and aidruo and ventolin Pt notices improvement of breathing with above inhalers. Pt still use albuterol BID polycythermia1 Pt has mild poly cythemia. Pt has normal iron pt smokes one pack per day. Pt has COPD HLp Pt has high chol esterol and high TG Pt drinks 5 soda per day. Pt has mildly high glucose COPD1 Pt is on incruse . Pt did not hop picker breo. Pt still feels sob frequently. pt denies any acute sob osteopenia1 Pt has osteopeni a. Pt denies any fracture breast CA1 Pt has right shahid ast CA. Pt had lumpectomy with radiation. Pt is back to see Dr. Machado now and just had normal screening mammogram. Pt also sees oncology. HTn Pt has mild HTN today. pt denies any chest pain or headache. Pt states that her BP is around 120/70 at home tobacco1 Pt continues to smoke. Pt feels sob. Pt has not started zyban yet. COPD1 Pt has COPD Pt h as not done chest CT yet. Pt states that she is doing much better with incruse. Pt feels less need to use ventolin. Pt denies any acute sob. Pt c/o chest congestion, productive coughing for 2 weeks. Pt denies any chest pain or worsening sob. Pt denies any chest pain. pt also wheeze intermittently polycythermia1 Pt has polycythe araceli. Pt had normal iron panel. Pt snores loud at night. Pt sometimes wakes up at night with snoring Pt denies any morning fatigue tobacco1 Pt has more than 40 pack year tobacco. Pt needs annual LDCT soon. Pt tried patch and failed tobacco copd1 Pt has COPD. Pt has more than 40 pack year tobacco. Pt feels sob, especially with exertion recently. pt denies any acute sob PHysical Pt needs annual physical. pt smokes 1-2 pack per day for many years. pt recently went to ER for hemotylsis and coughing. Pt denies any chest pain. Pt had benign chest CT which showed emphysema. Pt denies any sob baseline. Pt also has breast Cancer. Pt sees Dr. Nelson. Pt had radiation therapy also. Pt only sees Dr. Nelson now for breast CA follow up and she has not seen her for over one year. Pt states that she is not taking any medication for her breast Ca and she does not see a medical oncologist. Pt states that she still coughs up some blood now. Pt denies any hoarseness. Pt denies any chest pain or sob. Pt denies any other complaints mammogram Pt has abnrmal m ammogram. Pt states that she had normal manual breast exam by DUE DILIGENCE COORDINATOR two weeks ago. Pt denies any nipple discharge or any redness around breast. Pt feels a small nodule right brast on her own for several days. Pt notices mild pain H&H Pt has elevated H&H on lab vitamin D Pt has low vitam in D Instructions Date Instruction Additional Infor mation Special diet education Related t o Body mass index (BMI) 31.0-31.9, adult Quit smoking Related to Osteo porosis Quit smoking Related to Encou nter for general adult medical exam w abnormal findings Special diet education Related t o Body mass index (BMI) 31.0-31.9, adult Weight management Related to Enc ounter for general adult medical exam w abnormal findings Special diet education Related t o Body mass index (BMI) 31.0-31.9, adult Quit smoking Related to Emphy sema Special diet education Related t o Body mass index (BMI) 31.0-31.9, adult Stop smoking. Related to Hyper lipidemia Quit smoking Related to Emphy sema Special diet education Related t o Body mass index (BMI) 32.0-32.9, adult Quit smoking Related to Emphy sema Special diet education Related t o Body mass index (BMI) 31.0-31.9, adult Prescribed Diet Educ ation/Lifestyle Education Regarding Diet Related to Dietary Surveillance and Counseling Prescribed Activity and Exercise Education Related to Dietary Surveillance and Counseling Assessments Type Assessment Date No Information
--- OUTSIDE RECORDS SUMMARY | 2025-01-27 13:32 | XMS_ITS | Clinical Summary ---
Author Organization [facility] Address [address] [place] [address] Care Team Providers Care Tractor Operator Battery Name Role Phone Boaz Gautam MD Primary Care Provider [phone] Source Comments [facility],non-[facility] health Affiliates and Associated Physician Practices is amultiple site organization consisting of ambulatory clinics and hospital sitesin [place], [place], [place] and [place]. This disclosure is being madepursuant to the Care Everywhere program and may not contain all information available regarding this patient. 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 Gender Identity Not on file Sexual Orientation Not on file Plan of Treatment Health Maintenance Due Date Last Done Comments BONE DENSITY TESTING 1954 COLOGUARD (AGES 45-75) - COL ON CA SCREENING 1954 COLON MONITORING 1954 COLONOSCOPY - COLON CA SCREENING 1954 CT COLONOGRAPHY - COLON CA SCREENING 1954 Colorectal Cancer Screening 1954 FIT - COLON CA SCREENING 1954 FLEX SIG - COLON CA SCREENING 1954 LIPID TESTING 1954 MAMMOGRAM 1954 HEPATITIS C SCREENING 09/26/1972 DTAP/TDAP/TD VACCINES (1 - Tdap) 1973 PNEUMOCOCCAL VACCINE 50+ (1 of 1 - PCV) 2004 ZOSTER VACCINE (1 of 2) 2004 COVID-19 VACCINE (2023-2 5 season) 2024 DEPRESSION SCREENING 07/31/2024 INFLUENZA VACCINE (Season Ended) 2025 Respiratory Syncytial Virus (RSV) Vaccine Pt: or over 60 yrs (1 - 1-dose 75+ series) 2029 HEPATITIS B VACCINE Aged Out No longe r eligible based on patient's age to complete this topic HIB VACCINE Aged Out No longer eligi ble based on patient's age to complete this topic HPV VACCINE Aged Out No longer eligi ble based on patient's age to complete this topic MENINGOCOCCAL (Group B) VACC INE SHARED DECISION-MAKING Aged Out No longer eligibl e based on patient's age to complete this topic MENINGOCOCCAL GROUPS A/C/Y/W VACCINE Aged Out No longer eligible b ased on patient's age to complete this topic Insurance [employer] [facility] [employer] Care Teams Tractor Operator Battery Relationship Specialty Start Date End Date Boaz Gautam MD PCP - General Family Medicine 01/09/19
--- OUTSIDE RECORDS SUMMARY | 2025-01-27 13:32 | XMS_ITS | Data Portability ---
Author Organization [facility] Address [address] [place] [address] Care Team Providers Care Silk Soaker Name Role Phone JOSEFA GUZMAN Surgical Oncologist Assessment No assessment recorded. Plan of Treatment Reminders Order Date Submit Date Provider Last Modified By Organization Details Last Modified Time Details Appointments None record ed. Lab None record ed. Referral None record ed. Procedures None record ed. Surgeries None record ed. Imaging None record ed. Medication Orders None record ed. Patient TargetsNo targets recorded. Patient Instructions Encounter Date Encounter Id Patient Instructions Last Modified By Organization Details Last Modified Time 12/07/2018 [id number] Quitting Tobacco : Care Instructions oajao Not available 12/07/2018 14:16:50 chronic obstructive pulmonary disease (COPD): care instructions oajao Not available 12/07/2018 14:16:49 learning about copd and how to prevent lung infections oajao Not available 12/07/2018 14:16:49 Stop smoking Follow up with her PCP Colonoscopy report Results of her last CT scan of the chest Lab results from [facility] in [place] Follow up in 1 year for Pneumovax and PRN oajao Not available 12/07/2018 14:44:12 There is no reason for her to have two PCPs, she is welcome if there is a need for her to switch providers oajao Not available 12/07/2018 14:44:03 Reason for Referral None Reported. Problems No Known Problems Procedures Surgical History Date Name Laterality Status Provider Name and Address Organization Details Recorded Time section completed Katelin Diaz MA [facility] 12/07/2018 13:59:21 Cholecystectomy completed Katelin Diaz MA [facility] 12/07/2018 13:59:26 partial hysterectomy completed Katelin Diaz MA [facility] 12/07/2018 13:59:32 lumpectomy of right breast completed Anabelle Miles MD Attn: Accounting,[address] [facility], [place], [address], [place] - [facility] 12/07/2018 14:15:30 Imaging Results None recorded. Procedure Notes None recorded. Medical Equipment None Reported. Allergies Allergen ID Allergen Name Allergen Category Reaction Reaction Severity Criticality Documentation Date Start Date Code Code System Note Provider Name and Address Organization Details Recorded Time 172725 codeine medicatio n itching severe Not available 12/07/2018 2670 RxNorm Vomit ing Katelin Diaz MA [facility], [place] - [facility] 9 13:55:20 Medications Name Sig Start Date Stop Date Status Note LastModified by Organization Details LastModified Time amoxicillin 500 mg capsule 12/07 completed Not Available Not Available Not Available anastrozole 1 mg tablet Take 1 tablet every day by oral route for 30 days. active Not Available Not Available No t Available azithromyci n 250 mg tablet 12/07 completed Not Available Not Available Not Available ibuprofen 800 mg tablet active Not Available Not Available Not Available prednisone 20 mg tablet 12/07 completed Not Available Not Available Not Available alendronate 70 mg tablet Take 1 tablet every week by oral route for 28 days. active Not Available Not Available No t Available ergocalcife rol (vitamin D2) 1,250 mcg (50,000 unit) capsule Take 1 capsule every week by oral route for 28 days. active Not Available Not Available No t Available Ventolin HFA 90 mcg/actuati on aerosol inhaler Inhale 2 puffs 4 times a day by inhalatio n route as directed for 16 days. active Not Available Not Available No t Available Incruse Ellipta 62.5 mcg/actuati on powder for inhalation Inhale 1 inhalatio n every day by inhalatio n route for 30 days. active Not Available Not Available No t Available fluticasone 113 mcg-salmete rol 14 mcg/actuati on breath activated powdr Inhale 2 puffs every day by inhalatio n route for 30 days. active Not Available Not Available No t Available Vitals Date Recorded Body height Body mass index (BMI) Body weight Body temperature Oxygen saturation Oxygen saturation in Arterial blood by Pulse oximetry Heart rate Systolic blood pressure Diastolic blood pressure Provider Name and Address Organization Details Last Updated DateTime 9 156.85 cm 30.6 kg/m2 83792.7 6 g 97.6 [degF] 96 % 96 % 60 /min 114 mm[Hg] 78 mm[Hg] Katelin Diaz MA [facility] 9 14:03:46 Social History Question Answer Notes LastModified by Organizat ion Details LastModified Time Tobacco Smoking Status Current Every Day Smoker Katelin Diaz MA null, [place] - [facility] 12/07/2018 13:56:00 What Is Your Level Of Caffeine Consumption? Moderate Information not available 12/07/2018 How Much Tobacco Do You Chew? None Information not available 12/07/2018 What Type Of Diet Are You Following? REGULAR Information not available 12/07/2018 Hard Of Hearing Or Deaf In One Or Both Ears? No Information not available 12/07/2018 Legally Blind In One Or Both Eyes? No Information not available 12/07/2018 Marital Status Informatio n not available 12/07/2018 What Was The Date Of Your Most Recent Tobacco Screening? 12/07/2018 Information not available 02/21/2019 Performs Monthly Self-breast Exam? Yes Information not available 12/07/2018 How Much Tobacco Do You Smoke? 0.5 PPD Information not available 12/07/2018 Has Tobacco Cessation Counseling Been Provided? Yes Information not available 12/07/2018 On What Date Was Tobacco Cessation Counseling Provided? 12/07/2018 Information not available 12/07/2018 How Many Years Have You Smoked Tobacco? 45 Information not available 12/07/2018 Sex: Unknown Functional Status Question Answer Note LastModified by Organizat ion Details LastModified Time What is your level of alcohol consumption? 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 Family History Relationship Description Onset Age of this Age Resolved Age Notes LastModified by Organization Details LastModified Time Sister Diabetes mellitus hdoverma Not available 2018 14:01:13 Father Family history of multiple myeloma hdoverma Not available 2018 14:01:32 Mother Hypertensive disorder hdoverma Not available 2018 14:01:39 Medical History Condition Response Coronary Artery Disease N Other N Atrial Fibrillation N High Blood Pressure N Depression N COPD Y Blood Clots N Anxiety Disorder N Muscle, Joint, or Bone Problems N Acid Reflux (GERD) N Cancer Y Stroke N High Cholesterol N Liver Disease N Headaches N Kidney or Bladder Problems N Thyroid Problems N GI Problems N Skin Problems N Anemia N Heart Attack ([place]) N Diabetes N Seizures/Epilepsy N Asthma N Allergies N Hepatitis N Heart Failure N Osteoporosis N Gynecological HistoryNo gynecological history recorded. Obstetrics History GPAL:G 0 P 0 0 0 0 Immunizations Vaccine Type Date Status Note Provider Nam e and Address Organization Details Recorded Time Tdap 8 completed Katelin Diaz MA [facility] 12/07/2018 14:00:50 Pneumococcal conjugate PCV 13 9 completed Not Available [facility] 08/17/2019 02:43:07 Past Encounters Encounter ID Performer Location Encounter Start Date Encounter Closed Date Diagnosis/Indication Diagnosis SNOMED-CT Code Diagnosis ICD10 Code Diagnosis Note [id number] Anabelle Miles MD [facility] (Adult Med) [address] [place] [address] 12/07/2018 13:30:04 12/10/2018 10:45:46 Adult health examination 450273492 Z00.00 Administra tion of pneumococcal vaccine 75001359 Z23 Malignant tumor of breast 748826755 C50.011 Chronic ob structive pulmonary disease 92515900 J44.9 Nicotine dependence 5629 4008 F17.200 Health Concerns Section Related Observation LastModified by Organization Detai ls LastModified Time None Recorded Concern Status LastModified by Organization Details LastModified Time None Recorded Advance Directives Directive None Recorded Payers Insurance Date Sequence Insurance Name Policy Number Policy Scott Covered Member ID Scott Member ID Guarantor Name 12/07/2018 1 [facility] PRIOR TO 01/28/2021 (MEDICAID REPLACEMENT - HMO) Carolina Streeter [id number] Carolina Streeter Notes Date Note Type Note Provider Name and Address Organization Details Recorded Time 12/07/2018 text/html A pneumonia shotBut he doesn't give shots63 y/o WF with a PMHX. of Breast cancer, COPDPCP Dr Dain Miles MD Attn: Accounting,[address] [facility], [place], [address], [facility] 12/07/2018 14:44:26 OBGyn Episode No OBEpisode recorded.
[2025-01-27 13:57] LABS: Hematocrit 49.7 % (37.0-47.0); Hemoglobin 15.9 g/dL (12.0-15.0)
[2025-01-27 14:08] LABS: INR 0.9; Prothrombin Time 12.2 Seconds (11.1-14.7)
[2025-01-27 14:09] LABS: Partial Thromboplastin Time 25.8 Seconds (22.3-36.8)
== END 2025-01-27 13:08 | disposition home or self-care (01) ==
LOC: ANHSURGERY 13:10
PROVIDERS: Anesthesiology; PCP Nurse Practitioner Family; Visit Provider Urology
DX: D75.1 Secondary polycythemia (principal); E78.5 Hyperlipidemia, unspecified; F17.200 Nicotine dependence, unspecified, uncomplicated
CPT/HCPCS: 36415; 85014; 85018; 85610; 85730; 93005

== ENCOUNTER 2025-01-30 01:21 | Day surgery (SDC) | payer MEDICARE, SELFPAY ==
[2025-01-24 15:25] VITALS: BMI 29.5
--- NOTE | 2025-01-24 15:40 | PC.NURSE ---
Report to the Outpatient Waiting Room, entrance under the green pavilion located off [facility], at time __0600am on date __01/30/25 . Planned Procedure Time: _0730am .? Time changes happen often and if your time is changed the preop area will call you the afternoon before. - You and your visitor will be asked to self-screen and do not enter if you have any COVID symptoms. Please call surgeon if you need to reschedule. - A mask is optional within the hospital at this time. Patients may have clear liquids (water, carbonated beverages, clear teas, apple juice) until 3 hours prior to surgery with a maximum of 20 ounces. - No food from midnight until time of surgery and no smoking, or chewing tobacco (or any form of nicotine). No chewing gum, candy or mints.(04:30am) - Take only the following medications with a SIP of water on the morning of surgery: __Stiolto Inhaler DO NOT STOP ANY OF YOUR OTHER PRESCRIPTION MEDICATIONS PRIOR TO SURGERY EXCEPT THE FOLLOWING Hold all vitamins and supplements for 3 days per anesthesiologist. Medications to discontinue per physician Meloxicam for 7 days prior per Date to take last dose__01/22/25 Please no make-up, nail haitian, hairspray, perfume, deodorant, or body powder the day of surgery.? No jewelry (including any body piercings) or valuables the day of surgery, leave them at home.? Please take a shower or bath the night before, or the morning of, surgery with an antibacterial soap.? Wear comfortable, loose fitting clothing.? - Jewelry must be removed prior to entering the operating room.? Rings and piercings that are not removed may be cut off. - The hospital will not accept responsibility for valuables.? - Please leave all valuables, including medications, at home the day of surgery. If you are going home after surgery, a licensed commercial trailer truck driver must drive you home.? - NO public transportation without another adult if you receive anesthesia. - We recommend that an adult stay with you for 24 hours following discharge. - We also recommend that you do not drive, make important decision, drink alcoholic beverages, or take any drugs that were not prescribed by your health care provider for at least 24 hours after your discharge time. Follow any additional instructions given to you from your surgeon. Telephone instructions given to ____Patient and asked if any additional questions and then verbalized understanding. Patient advised to call surgeon office or pre surgery nurse liaison [phone] if any additional questions.
--- NOTE | 2025-01-25 14:20 | PM.IMHP ---
H&P: HPI History of Present Illness Date/Time: 01/25/25 14:20 Chief Complaint: pelvic organ prolapse Narrative: pelvic organ prolapse. Stress incontinence noted on urodynamics Review of Systems Review of Systems: All systems reviewed & are unremarkable except as noted in HPI and below PMFSH Past Medical History Medical History COPD (chronic obstructive pulmonary disease) Breast cancer Social History Social History Social History: denies alcohol or drug use. Heavy smoker. Smoking packs per day: 1 Smoking cigarettes per day: 20.0 Years smoked: 50 Smoking pack-years: 50.00 Smoking status: Current every day smoker Tobacco type: cigarettes Alcohol intake: never Substance use: never Living arrangements: with family Spiritual care concerns: No Meds Home Medications and Allergies Home Medications ?Medication ?Instructions ?Recorded ?Confirmed ?Type albuterol sulfate 2.5 mg/3 mL 2.5 mg inhalation DIRECTED 11/01/22 01/24/25 History (0.083 %) solution for nebulization atorvastatin 40 mg tablet 40 mg PO DAILY 08/16/23 01/24/25 History tiotropium 2.5 mcg-olodaterol 2.5 2 puff inhalation DAILY 08/16/23 01/24/25 History mcg/actuation mist for inhalation (Stiolto Respimat) cholecalciferol (vitamin D3) 1,250 1,250 mcg PO WEEKLY 09/07/23 01/24/25 History mcg (50,000 unit) capsule meloxicam 15 mg tablet 15 mg PO DIRECTED 09/07/23 01/24/25 History Allergies Allergy/AdvReac Type Severity Reaction Status Date / Time codeine Allergy Intermediate Itching Verified 01/24/25 15:22 Exam Narrative: vaginal foreshortening minimal urethral mobility cystocele +2 apex 0 Assessment and Plan Assessment and plan (1) Prolapse of vaginal vault after hysterectomy: Code(s): N99.3 - Prolapse of vaginal vault after hysterectomy Status: Acute (2) RAMIRO (stress urinary incontinence, female): Code(s): N39.3 - Stress incontinence (female) (male) Status: Acute Plan sacral spinous ligament fixation, cystocele repair, urethral sling. Risks, benefits, alternatives are all outlined in office chart
[2025-01-30] VITALS (17 sets, daily range): BP systolic 98–139; BP diastolic 50–87; PULSE 50–75; RESP 18–20; TEMP 36.3–36.6; O2SAT 92–98
--- OUTSIDE RECORDS SUMMARY | 2025-01-30 01:23 | XMS_ITS | Clinical Summary ---
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 Pulse 66 09/22/2022 2: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 Temperature 36.6 C (97.8 F) 09/22/2022 2: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 Respiratory Rate 20 09/22/2022 2: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 Oxygen Saturation 98% 09/22/2022 2: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 Inhaled Oxygen Concentration - - Weight 75.4 kg (166 lb 3.2 oz) 09/22/2022 2:15 P M DOUBLE 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 Height 154.9 cm (5' 1) 03/09/2022 3:07 [...] 07/13/2020, Additional history exists INFLUENZA VACCINE (#1) 2025 04/30/2020, 2018 DTAP/TDAP/TD VACCINES (2 - T [...] Most Recently Relevant to Health [place] [address] [place] [employer] [facility] Care Teams Specifications Checker Relationship Specialty Start Date End Date Boaz Gautam MD [address] [place], [place] [address] [place] [address] PCP - General Family Practice 03/22/17
--- OUTSIDE RECORDS SUMMARY | 2025-01-30 01:23 | XMS_ITS | Continuity of Care Document ---
Author Organization [facility] Address [address] [place] [address] Phone Care Team Providers Care Director Financial Analysis Name Role Phone Boaz Gautam MD Unavailable Unavailable Allergies, Adverse Reactions, Alerts Substance Reaction Status Criticality codeine Active No Information Medications Medication Instructions Dosage Effective Dates (start - stop) Status Comments Fosamax 70 mg tablet take 1 tablet by oral route every week in the morning, at least 30 min before first food, beverage, or medication of day 70 MG - Active do not lie lexie n x 30 mins after pill Ventolin HFA 90 mcg/actuation aerosol inhaler inhale 2 puff by inhalation route every 4 - 6 hours as needed as needed - Active PRN for sob AirDuo RespiClick 113 mcg-14 mcg/actuation breath activated inhale 1 puff by inhalation route 2 times every day approximately 12 hours apart at the same time each day - Active Incruse Ellipta 62.5 mcg/actuation powder for inhalation inhale 1 puff by inhalation route every day at the same time each day 62.5 MCG - Active Vitamin D2 50,000 unit capsule take 1 capsule by oral route every week - Active anastrozole 1 mg tablet take 1 tablet by oral route every day 1 MG - Active Procedures Procedure Date OFFICE/OUTPATIENT VISIT, [...] Diagnoses Date Provider Providers Copied on Encounter [facility], [address], [place], [place], [address], tel:[phone] [facility] No Information 9 Dain Sandra. [address], [place], [place], [address] , [place]. tel:[phone] Referring Provider: Lukasz Odom [address], [place], [place], [address]. tel:[phone] OFFICE/OUTPA TIENT VISIT, EST [facility], [address], [place], [place], [address], [place] tel:[phone] [facility] osteoporos is1 (chief complaint) polycythem ia1 (chief complaint) glucose1 (chief complaint) COPD1 (chief complaint) hand (chief complaint) abrasion1 (chief complaint) OsteoporosisEmphyse maSecondary polycythemiaHypergl ycemia 0 9 Dain Sandra. [address], [address], [place], [place], [address] , [place]. tel:[phone] Referring Provider: Lukasz Odom [address], [place], [place], [address]. tel:[phone] PREV VISIT, EST, AGE 40-64 [facility], [address], [place], [place], [address], [place] tel:[phone] [facility] PHysical (chief complaint) Encounter for general adult medical exam w abnormal findingsSecondary polycythemiaEmphyse maOsteoporosisHyper lipidemia 9 Dain Sandra. [address], [address], [place], [place], [address] , [place]. tel:[phone] Referring Provider: Lukasz Odom [address], [place], [place], [address]. tel:[phone] OFFICE/OUTPA TIENT VISIT, [facility], [address], [place], [place], [address], [place] tel:[phone] [facility] COPD1 (chief complaint) Body mass index (BMI) 31.0-31.9, adultEmphysema 8 Dain Duvall [address], [place], [place], [address] , [place]. tel:[phone] Referring Provider: Lukasz Odom [facility] [address], [place], [place], [address]. tel:[phone] OFFICE/OUTPA TIENT VISIT, [facility], [address], [place], [place], [address], [place] tel:[phone] [facility] osteopenia 1 (chief complaint) COPD1 (chief complaint) HLp (chief complaint) polycyther mia1 (chief complaint) HyperlipidemiaSecon coco polycythemiaOth disrd of bone density and structure, unspecified siteEmphysemaHyperg lycemia 8 Dain Duvall [address], [address], [place], [place], [address] , [place]. tel:[phone] Referring Provider: Lukasz Odom [address] [facility] [address], [place], [place], [address]. tel:[phone] OFFICE/OUTPA TIENT VISIT, [facility], [address], [place], [place], [address], [place] tel:[phone] [facility] COPD1 (chief complaint) tobacco1 (chief complaint) HTn (chief complaint) breast CA1 (chief complaint) Body mass index (BMI) 32.0-32.9, adultEmphysemaTobac co useMalignant neoplasm of nipple and areola, right female breastEssential (primary) hypertension 8 Dain Duvall [address], [address], [place], [place], [address] , [place]. tel:[phone] Referring Provider: Lukasz Odom [address], [place], [place], [address]. tel:[phone] OFFICE/OUTPA TIENT VISIT, EST [facility], [address], [place], [place], [address], [place] tel:[phone] [facility] copd1 (chief complaint) tobacco1 (chief complaint) polycyther mia1 (chief complaint) Body mass index (BMI) 31.0-31.9, adultEmphysemaTobac co useSecondary polycythemia Sep-2 8 Dain Sandra. [address], [address], [place], [place], [address] , [place]. [phone] Referring Provider: Lukasz Odom [address], [place], [place], [address]. tel:[phone] PREV VISIT, EST, AGE 40-64 [facility], [address], [place], [place], [address], [place] tel:[phone] [facility] PHysical (chief complaint) Encounter for general adult medical exam w abnormal findingsHemoptysisE mphysemaMalignant neoplasm of nipple and areola, right female breast 0 7 Dain Sandra. [address], [place], [place], [address] , [place]. tel:[phone] Referring Provider: Lukasz Odom [address], [place], [place], [address]. tel:[phone] OFFICE/OUTPA TIENT VISIT, EST [facility], [address], [place], [place], [address], [place] tel:[phone] [facility] vitamin D (chief complaint) H&H (chief complaint) mammogram (chief complaint) Breast noduleHemoglobin diseaseVitamin D deficiencyHeel spur Trever-0 2201 5 Dain Duvall [address], [place], [place], [address] , [place]. tel:[phone] Referring Provider: Lukasz Odom [address], [place], [place], [address]. tel:[phone] PREV VISIT, NEW, AGE 40-64 [facility], [address] [place], [address], tel:[phone] [facility] Physical (chief complaint) Routine Medical ExamRoutine Medical Exam 5 Dain Sandra. [address] [place], [place], [address] , [place]. tel:[phone] Family History Family Member Type Diagnosis Age At Onset Mother Problem (finding) Coronary artery disease 60 Father Problem (finding) Multiple myeloma Brother Problem (finding) COPD Payers Payer name Insurance type Covered libertarian ID Authoriza tion(s) No Information Social History [...] Date Complaint History Of Prese nt Illness COPD1 Pt has COPD Pt h as not done PFt yet pt is taking airduo and incruse and ventolin PRN. Pt uses ventolin 1-2 per day. Pt denies any hemoptysis, worsening cough or sob. glucose1 Pt has high gluc ose pt denies any polyuria, polydipsia hand abrasion1 Pt cut back of h er hand by glass door knob last week. Pt does not have any bone injury. Pt went to urgent care and was glued. Pt denies any pain pt denies any drainage or redness. Pt denies any numbness or tingling or weakness of finger or hand polycythemia1 Pt has polycythe araceli. Pt [...] is on incruse . Pt did not miner pick breo. Pt still feels sob frequently. pt [...] she had normal manual breast exam by [facility] E[facility]IST two weeks ago. Pt denies any nipple [...]
--- OUTSIDE RECORDS SUMMARY | 2025-01-30 01:23 | XMS_ITS | Clinical Summary ---
Author Organization [facility] Address [address] [place] [address] Care Team Providers Care Pail Bailer Name Role Phone Boaz Gautam MD Primary Care Provider [phone] Source Comments [facility],non-[facility] Affiliates and Associated Physician Practices is amultiple site organization consisting of ambulatory clinics and hospital sitesin [place], [place], [place] and [place]. This disclosure is being madepursuant to the Care Everywhere program and may not contain all information available regarding this patient. Last updated 18.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
--- OUTSIDE RECORDS SUMMARY | 2025-01-30 01:24 | XMS_ITS | Clinical Summary ---
Author Organization [facility] Address [address] [place] [address] Phone Care Team Providers Care Network Planner Name Role Phone Boaz Gautam Primary Care Provider [phone] Allergies Active Allergy Reactions Criticality Noted Date Comments Codeine Itching,Nausea 07/09/2015 Medications Stiolto Respimat 2.5-2.5 MCG/ACT Aerosol Solution INHALE 2 PUFFS BY MOUTH EVERY DAY 03/16/2023 Active meloxicam (MOBIC) 15 MG Tablet Take 1 Tablet by mouth daily. 02/24/2023 Active atorvastatin (LIPITOR) 40 MG Tablet Take 40 mg by mouth daily. 03/14/2023 Active Cholecalciferol (Vitamin D3) 1.25 MG (64079 UT) Capsule TAKE 1 CAPSULE BY MOUTH [...] Recently Relevant to Health Maintenance Insurance MEDICAID [employer] MEDICARE C [employer] Care Teams Network Planner Relationship Specialty Start Date End Date Boaz Gautam [address] [place] [address] PCP - General Family Medicine 07/08/15
--- OUTSIDE RECORDS SUMMARY | 2025-01-30 01:24 | XMS_ITS | Data Portability ---
Author Organization [facility] [email or web address], Main Office Address [address] [place] [address] Assessment No assessment recorded. Plan of Treatment Reminders Order Date Submit Date Provider Last Modified By Organization Details Last Modified Time Details Appointments None recorded. Lab urinalysis, dipstick 2023 LIZETT [facility] [address], [place], [address], 15:54:06 lipid panel, serum [address] (Lab), [address] [place], [address], 10:05:22 hepatic function panel, serum [address] (Lab), [address] [place], [address], 10:05:22 CMP, serum or plasma [address] (Lab), [address] [place], [address], 10:05:22 TSH, serum or plasma [address] (Lab), [address] [place], [address], 10:05:22 CBC w/ auto diff [address] (Lab), [address] [place], [address], 4 10:05:23 glycohemogl obin, total, blood [address] (Lab), [address] [place], [address], 4 10:05:23 vitamin D, 25-hydroxy, total, serum [address] (Lab), [address] [place], [address], 4 10:05:22 alpha-1-ant itrypsin (aat) phenotype, serum [address] (Lab), [address] [place] [address], [address], 3 09:50:46 ige, total, serum [address] (Lab), [address] [place] [address], [address], 3 09:50:47 igg subclasses 1+2+3+4, serum [address] (Lab), [address] [place] [address], [address], 3 09:50:47 tb (M tuberculosi s), ifn-gamma gaby, blood [address] (Lab), [address] [place] [address], [address], 3 09:50:47 BNP (B-type natriuretic peptide), blood [address] (Lab), [address] [place] [address], [address], 3 09:50:47 alpha-1-ant itrypsin (aat), QN, serum [address] (Lab), [facility] [address], [place], [address], 3 09:50:47 rast class, qualitative , serum [address] (Lab), [address] [place] [address] [address], [place], [address], 3 09:50:47 eosinophils , auto, blood (OBS) [address] (Lab), [address] [place] [address] [address], [place], [address], 3 09:50:47 Referral None recorded. Procedures None recorded. Surgeries None recorded. Imaging MAMMO, screening, digital, bilateral - Please call pt to schedule [email or web address] [place] [address] Imaging Center, [address] [place] [address] [address], [place], [address], 4 10:36:04 Medication Orders Macrobid 100 mg capsule 2023 [facility], [address] [facility], [place], [place], [id number], 15:58:31 atorvastati n 40 mg tablet 2023 [facility] #99776, [address] [facility], [place], [place], [id number], 4 15:47:10 cholecalcif henri (vitamin D3) 1,250 mcg (50,000 unit) capsule 2023 [facility] #00949, [address] [facility], [place], [place], [id number], 4 15:47:09 meloxicam 15 mg tablet 2023 024 [facility] #07125, [address], [place], [place], [id number], 4 15:47:08 terconazole 0.8 % vaginal cream 2023 024 [facility]39700, [address], [place], [place], [id number], 4 15:47:09 albuterol sulfate HFA 90 mcg/actuati on aerosol inhaler 2022 [email or web address] [place] [address] [facility] #45023, [address] [facility], [place], [place], [id number], 4 15:33:32 Stiolto Respimat 2.5 mcg-2.5 mcg/actuati on solution for inhalation [email or web address] [facility] #73142, [address] [facility], [place], [place], [id number], 4 15:33:22 Patient TargetsNo targets recorded. Patient Instructions Encounter Date Encounter Id Patient Instructions Last Modified By Organization Details Last Modified Time 01/06/2023 [id number] complete PFT w/ post bronchodilator spirometry* - Approved [id number] 01/10/2023-02/09/20 [email or web address] Not available 07/05/2023 10:57:27 Reason for Referral None Reported. Results Created Date Observation Date Name Description Value Unit Range Abnormal Flag Note LastModifiedBy Organization Detail LastModifiedTime 03/10/20 23 03/10/2023 CULTU RE URINE urc ===== ===== ===== ===== ===== ===== ===== ===== ===== ===== ===== ===== ===== ===== ===== ===== ===== ===== ===== ===== ===== ===== ===== ===== CULTU RE NO.: [id number] Exam Statu s: Final Exam Type: [...] Nitro furan toin R 021D Not Available [facility] (Lab) [address], [place], [address], 03/12/2023 08:27:14 03/10/2003/10/2023 urina lysis , dipst ick Leukocytes (reference range: negative darrel/ l) Large Not Available [address], [place], [address], 03/09/2023 11:59:39 03/10/2003/10/2023 urina lysis , dipst ick Nitrite (reference rage: negative mg/dl) positi ve Not Available [address], [place], [address], 03/09/2023 11:59:39 03/10/20 23 03/10/2023 urina lysis , dipst ick Urobilinogen (reference range: 0.2-1 mg/dl) 0.2 Not Available [address], [place], [address], 03/09/2023 11:59:39 03/10/20 23 03/10/2023 urina lysis , dipst ick Protein (reference range: negative mg/dl) Large Not Available [address], [place], [address], 03/09/2023 11:59:39 03/10/20 23 03/10/2023 urina lysis , dipst ick pH (reference range: 5-7) 6.5 Not Available [address], [place], [address], 03/09/2023 11:59:39 03/10/20 23 03/10/2023 urina lysis , dipst ick Blood (reference range: negative Alhaji/ l) Large Not Available [address], [place], [address], 03/09/2023 11:59:39 03/10/20 23 03/10/2023 urina lysis , dipst ick Specific [place] (reference range: 1.005-1.030) 1.030 Not Available [address], [place], [address], 03/09/2023 11:59:39 03/10/20 23 03/10/2023 urina lysis , dipst ick Ketone (reference range: negative mg/dl) Negati ve Not Available [address], [place], [address], 03/09/2023 11:59:39 03/10/20 23 03/10/2023 urina lysis , dipst ick Bilirubin (reference range: negative mg/dl) Negati ve Not Available [address], [place], [address], 03/09/2023 11:59:39 03/10/20 23 03/10/2023 urina lysis , dipst ick Glucose (reference range: negative mg/dl) Negati ve Not Available [address], [place], [address], 03/09/2023 11:59:39 03/10/20 23 03/10/2023 urina lysis , dipst ick Appearance Cloudy Not Available [address], [place], [address], 03/09/2023 11:59:39 03/10/20 23 03/10/2023 urina lysis , dipst ick Color Dark Yellow Not Available [address], [place], [address], 03/09/2023 11:59:39 05/01/20 24 05/01/2024 urina lysis , dipst ick Leukocytes (reference range: negative darrel/ l) Trace Not Available [address], [place], [address], 05/01/2024 15:42:25 05/01/20 24 05/01/2024 urina lysis , dipst ick Nitrite (reference rage: negative mg/dl) positi ve Not Available [address], [place], [address], 05/01/2024 15:42:25 05/01/20 24 05/01/2024 urina lysis , dipst ick Urobilinogen (reference range: 0.2-1 mg/dl) 1 Not Available [address], [place], [address], 05/01/2024 15:42:25 05/01/20 24 05/01/2024 urina lysis , dipst ick Protein (reference range: negative mg/dl) Negati ve Not Available [address], [place], [address], 05/01/2024 15:42:25 05/01/20 24 05/01/2024 urina lysis , dipst ick pH (reference range: 5-7) 7.0 Not Available [address], [place], [address], 05/01/2024 15:42:25 05/01/20 24 05/01/2024 urina lysis , dipst ick Blood (reference range: negative Alhaji/ l) Negati ve Not Available [address], [place], [address], 05/01/2024 15:42:25 05/01/20 24 05/01/2024 urina lysis , dipst ick Specific [place] (reference range: 1.005-1.030) 1.020 Not Available [address], [place], [address], 05/01/2024 15:42:25 05/01/20 24 05/01/2024 urina lysis , dipst ick Ketone (reference range: negative mg/dl) Negati ve Not Available [address], [place], [address], 05/01/2024 15:42:25 05/01/2005/01/2024 urina lysis , dipst ick Bilirubin (reference range: negative mg/dl) Negati ve Not Available [address], [place], [address], 05/01/2024 15:42:25 05/01/20 24 05/01/2024 urina lysis , dipst ick Glucose (reference range: negative mg/dl) Negati ve Not Available [address], [place], [address], 05/01/2024 15:42:25 05/01/20 24 05/01/2024 urina lysis , dipst ick Appearance Clear Not Available [address], [place], [address], 05/01/2024 15:42:25 05/01/20 24 05/01/2024 urina lysis , dipst ick Color Pale Yellow Not Available [address], [place], [address], 05/01/2024 15:42:25 05/31/20 24 05/31/2024 urina lysis , dipst ick Leukocytes (reference range: negative darrel/ l) Trace Not Available [address], [place], [address], 05/31/2024 15:11:30 05/31/20 24 05/31/2024 urina lysis , dipst ick Nitrite (reference rage: negative mg/dl) positi ve Not Available [address], [place], [address], 05/31/2024 15:11:30 05/31/20 24 05/31/2024 urina lysis , dipst ick Urobilinogen (reference range: 0.2-1 mg/dl) 0.2 Not Available [address], [place], [address], 05/31/2024 15:11:30 05/31/20 24 05/31/2024 urina lysis , dipst ick Protein (reference range: negative mg/dl) Negati ve Not Available [address], [place], [address], 05/31/2024 15:11:30 05/31/20 24 05/31/2024 urina lysis , dipst ick pH (reference range: 5-7) 7.0 Not Available [address], [place], [address], 05/31/2024 15:11:30 05/31/20 24 05/31/2024 urina lysis , dipst ick Blood (reference range: negative Alhaji/ l) Non-He molyze d: Trace Not Available [address], [place], [address], 05/31/2024 15:11:30 05/31/20 24 05/31/2024 urina lysis , dipst ick Specific [place] (reference range: 1.005-1.030) 1.020 Not Available [address], [place], [address], 05/31/2024 15:11:30 05/31/20 24 05/31/2024 urina lysis , dipst ick Ketone (reference range: negative mg/dl) Negati ve Not Available [address], [place], [address], 05/31/2024 15:11:30 05/31/20 24 05/31/2024 urina lysis , dipst ick Bilirubin (reference range: negative mg/dl) Negati ve Not Available [address], [place], [address], 05/31/2024 15:11:30 05/31/20 24 05/31/2024 urina lysis , dipst ick Glucose (reference range: negative mg/dl) Negati ve Not Available [address], [place], [address], 05/31/2024 15:11:30 05/31/20 24 05/31/2024 urina lysis , dipst ick Appearance Slight ly Cloudy Not Available [address], [place], [address], 05/31/2024 15:11:30 05/31/20 24 05/31/2024 urina lysis , dipst ick Color Yellow Not Available [address], [place], [address], 05/31/2024 15:11:30 06/09/20 23 06/09/2023 MAMMO , scree ankit, bilat eral No observ ation record ed. [email or web address] [facility] [address] [place], [address], 12/08/2023 12:06:14 06/09/2006/09/2023 US ran felicia No observ ation record ed. [email or web address] [facility] [address], [place], [address], 12/08/2023 12:06:32 Result Notes None recorded. Problems Name Problem SNOMED Code Status Onset Date Resolution Date Notes Provider Name and Address Organization Details Recorded Time Recurrent urinary tract infection 396364801 Active 2022 SUNG Fuentes [address], [place], [address] , [facility] [employer] 3 10:30:58 Vitamin D deficienc y 36578836 Active 2022 SUNG Fuentes [address], [place], [address] , [facility] [employer] 3 10:35:42 Pain in both feet 08161845215 123000 Active 2022 SUNG Fuentes [address], [place], [address] , [facility] [employer] 3 10:30:12 Prediabet es 671769592 Active 2022 SUNG Fuentes [address], [place], [address] , [facility] [employer] 3 11:36:12 Hyperlipi demia 40449867 Active 2022 SUNG Fuentes [address], [place], [address] , [facility] [employer] 3 14:01:19 Urinary symptoms 427869854 Active 2022 DEXTER Alston [address], [place], [address] , [facility] 3 11:59:35 Acute urinary tract infection 326447644 Active 2022 DEXTER Alston [address], [place], [address] , [facility] 3 12:27:55 Dysuria 76966100 Active 2023 JOEY Brock [address], [place], [address] , [facility] 4 15:42:20 Candidias is of vagina 76757184 Active 2023 JOEY Brock [address], [place], [address] , [facility] 4 15:45:20 Obesity 562745589 Active 2023 JOEY Brock [address], [place], [address] , [facility] [employer] [facility] 4 23:19:09 Chronic obstructi ve pulmonary disease 44384461 Active 2018 Not Available [facility] 3 04:50:04 Acute exacerbat ion of chronic obstructi ve pulmonary disease 016097860 Active 2021 Not Available [facility] 3 04:50:04 Multiple nodules of lung 150679696 Active 2019 Not Available [facility] 3 04:50:04 Nicotine dependenc e 81123172 Completed 201811/11/2020 Not Available [facility] 3 04:50:04 Dyspnea on exertion 26599109 Active 2021 Not Available [facility] 3 04:50:04 Hemoptysi s 39643695 Active 2021 Not Available [facility] 3 04:50:04 Chronic cough 13958653 Active 2021 Not Available [facility] 3 04:50:04 COVID-19 175666043 Active 2021 Not Available [facility] 3 04:50:04 Ex-smoker 8382009 Completed 201911/11/2020 Not Available [facility] 3 04:50:05 Notes:Medical History: Nicot ine dependence [...] CPT Code, Initial completed SUNG Fuentes [address] [facility], [place], [address], [facility] [employer] [facility] 11/25/2022 08:51:28 Foot Surgery [facility] 09/28/2022 04:42:13 Breast Surgery completed Not Available [facility] 09/28/2022 04:42:13 repair of urinary bladder completed Not Available [facility] 09/28/2022 04:42:13 vulvectomy completed Not Available [facility] 09/28/2022 04:42:13 repair of rectum completed Not Available [facility] 09/28/2022 04:42:13 section completed Not Available [facility] 09/28/2022 04:42:13 Imaging Results None recorded. Procedure Notes None recorded. Medical Equipment None Reported. Allergies Allergen ID Allergen Name Allergen Category Reaction Reaction Severity Criticality Documentation Date Start Date Code Code System Note Provider Name and Address Organization Details Recorded Time 7628 codeine medicatio n vomiting Not available Not available 09/28/2022 2670 RxNorm Not Available [facility] 05:02:36 Medications Name Sig Start Date Stop [...] 3 157.48 cm 97.2 [degF] 30.4 kg/m2 78566.3 3 g 57 /min 96 % 96 % 114 mm[Hg] 68 mm[Hg] Lori Reeder MA PR [facility] 3 14:38:34 Date Recorded Body height Provider Name an d Address Organization Details Last Updated DateTime 03/10/2023 157.48 cm Shayy Rm LPN [facility] 03/10/2023 10:59:55 Date Recorded Body weight Body temperature Oxygen saturation Oxygen saturation in Arterial blood by Pulse oximetry Heart rate Systolic blood pressure Diastolic blood pressure Provider Name and Address Organization Details Last Updated DateTime 4 16428.7 8 g 97.9 [degF] 95 % 95 % 70 /min 138 mm[Hg] 76 mm[Hg] Blake Prince RN [facility] 4 15:32:44 Social History Question Answer Notes LastModified by Organizat ion Details LastModified Time Tobacco Smoking Status Current Every Day Smoker Not Available [facility] 09/28/2022 04:06:58 What Is Your Level Of Caffeine Consumption? Moderate 2 Cups Of Coffee Every Am [id number] Information not available 09/28/2022 How Much Tobacco Do You Chew? None [id number] Information not available 09/28/2022 In The 14 Days Before Symptom Onset, Have You Had Close Contact With A Laboratory-confir med COVID-19 While That Case Was Ill? No [id number] Information not available 09/28/2022 In The 14 Days Before Symptom Onset, Have You Had Close Contact With A Person Who Is Under Investigation For COVID-19 While That Person Was Ill? No [id number] [id number] Information not available 09/28/2022 What Was The Date Of Your Most Recent Tobacco Screening? 01/06/2023 Information not available 01/06/2023 Have You Ever Been Counseled For Unhealthy Alcohol Use? No [email or web address] Information not available 11/18/2022 Do You Have Any Pets? No [id number] Information not available 09/28/2022 At What Age Did You Start Smoking Tobacco? 18 [id number].91000 [id number] Information not available 09/28/2022 How Much Tobacco Do You Smoke? 0.5 PPD Information not available 01/06/2023 Do You Participate In Social Media? Yes Just To See Family Pictures [email or web address] Information not available 11/18/2022 Has Tobacco Cessation Counseling Been Provided? No Information not available 11/18/2022 How Many Years Have You Smoked Tobacco? 47 MIGRATION.17012 [id number] Information not available 09/28/2022 Have You Recently Traveled Abroad? No Information not available 01/06/2023 Have You Used IV Drugs? No [id number].[id number] Information not available 09/28/2022 Sex: Female Functional Status Question Answer Note LastModified by Organizat ion Details LastModified Time Do you use any illicit or recreational drugs? Yes Marijuana every once in awhile [id number].44304 [id number] Information not available 09/28/2022 Do you or have you ever used any other forms of tobacco or nicotine? No [email or web address] Information not available 11/18/2022 What is your level of alcohol consumption? Occasional maybe once a year MIGRATION.31927 [id number] Information not available 09/28/2022 Do you or have you ever used smokeless tobacco? Never used smokeless tobacco MIGRATION.40852 [id number] Information not available 09/28/2022 Do you or have you ever used e-cigarettes or vape? Never used electronic cigarettes [id number].77926 [id number] Information not available 09/28/2022 Mental Status Question Answer Note LastModified by Organization D etails LastModified Time Do you feel stressed (tense, restless, nervous, or anxious, or unable to sleep at night)? [id number] [email or web address] Information not available 11/18/2022 Family History Relationship Description Onset Age of this Age Resolved Age Notes LastModified by Organization Details LastModified Time Mother Hypertensive disorder [email or web address] Not available 2022 10:21:48 Brother Hypertensive disorder [email or web address] Not available 2022 10:21:48 Sister Hypertensive disorder Not available 2022 10:21:48 Sister Diabetes mellitus Not available 2022 10:21:59 Father Family history of malignant neoplasm [email or web address] Not available 2022 10:22:34 Medical History No medical history recorded. Gynecological HistoryNo gynecological history recorded. Obstetrics History GPAL:G 0 P 0 0 0 0 Immunizations Vaccine Type Date Status Note Provider Nam e and Address Organization Details Recorded Time COVID-19, mRNA, LNP-S, PF, 30 mcg/0.3 mL dose 10/10/2020 completed Not Available [facility] 3 05:02:00 Influenza, high-dose, quadrivalent, PF 04/30/2020 completed Not Available [facility] 3 05:02:01 Influenza, split virus, quadrivalent, PF 05/23/2019 completed Not Available [facility] 3 05:02:01 Past Encounters Encounter ID Performer Location Encounter Start Date Encounter Closed Date Diagnosis/Indication Diagnosis SNOMED-CT Code Diagnosis ICD10 Code Diagnosis Note [id number] [facility] [place] [address] [place] [address] 11/11/2020 00:00:00 11/11/2020 16:52:41 [id number] [facility] [place] [address] [place] [address] 01/21/2021 00:00:00 01/21/2021 15:32:59 [id number] [facility] [place] [address] [place] [address] 11/03/2021 00:00:00 11/03/2021 16:23:35 [id number] Albino Aiken MD [facility] [address] [address] 11/04/2021 00:00:00 11/04/2021 10:45:30 [id number] Stephanie Walker, [facility] [place] [address] [place] [address] 11/17/2021 00:00:00 11/17/2021 16:27:56 [id number] Stephanie Walker [facility] [place] [address] [place] [address] 02/23/2022 00:00:00 02/23/2022 14:48:54 [id number] Stephanie Walker [facility] [place] [address] [place] [address] 06/29/2022 00:00:00 06/29/2022 22:07:13 [id number] SUNG Fuentes [facility] Primary Care [facility] [address] [facility] [place] [address] 11/18/2022 10:11:55 11/18/2022 10:54:33 Recurrent urinary tract infection 289718815 N39.0 Advised to increase water, states she is only drinking about 16oz per day, avoid sugary/caf feinated drinks. Continue cranberry supplement .Recheck urine. Will send referral to urology due to repeated infections . Vitamin D deficiency 347 31506 E55.9 Has not been on supplement recently. Diabetes m ellitus screening 327833740 Z13.1 Hyperlipid emia screening 834377541 Z13.220 [id number] SUNG Fuentes [facility] [address] [employer] [facility] [address] [place] [address] 11/25/2022 10:00:47 11/25/2022 11:33:49 Adult health examination 928227064 Z00.00 Routine labs completed. Recommende d routine [...] try to get records. Screening for disorder 146085581 Z13.9 Pain in both feet 893278 3337 3725946 M79.671 M79.672 Mainly in heels. 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 If no improvemen t will refer to podiatry. Prediabetes 237877304 R7 3.03 (11/18/22) A1C 6.1Advised to work on diet/exerc ise, mainly decreasing carbs/suga rs.Will continue to monitor. Vitamin D deficiency 347 86916 E55.9 Started on weekly supplement . [id number] DEXTER Mckeon[facility] [place] [address] [place] [address] 01/06/2023 14:28:52 01/06/2023 15:38:16 Chronic obstructive pulmonary disease 84835775 J44.9 PFT 03/2020 with FEV1 77% and [...] PRN for concernsRX sent today Chronic cough 77482393 R 05.3 Multifacto ralSmoking cessation Dyspnea on exertion 6084 5006 R06.09 Check labs Hemoptysis 53930373 R04. 2 R05.3 R06.00 J44.9 ResolvedBr onchoscopy completed last year Nicotine dependence 5629 4008 Z87.891 Smoking cessation counseling and techniques reviewed at length. Literature reviewed. Avoid triggers, support groups. Distractio n techniques Greater than 3 but less than 10 minutes spent discussing cessation. Declines NRT. Discussed Rx options if needed in the future. [id number] DEXTER Alston [facility] Primary Care Laquita harris [address] [place] [place] [address] 03/10/2023 10:42:08 03/10/2023 17:01:13 [id number] Kassidy Asencio MD [facility] Primary Care [place]ita [place] [address] [place] [address] 03/09/2023 17:17:23 04/29/2023 04:06:34 Urinary symptoms [id number] R39.9 [id number] [facility] Laquita harris [address] [place] [address] 05/01/2024 15:23:53 05/01/2024 15:50:11 Adult health examination 073104553 Z00.01 Discussed medication compliance and routine follow up.Discuss ed healthy diet and routine exercise.Cecilia peckiewed vaccine records and made recommenda tions as needed.Enc ouraged annual eye and dental exams, as well as twice yearly dental cleanings. Will check screening labs as listed below. Screening mammography 24 437345 Z12.31 Pain in both feet 298817 1173 [id number] M79.671 M79.672 Will refill meds as listed below. Vitamin D deficiency 347 52709 E55.9 Hyperlipidemia 53340900 E78.5 Will continue current medication s and recheck labs as listed below. Dysuria 15999854 R30.0 Candidiasis of vagina 72 675292 B37.31 Discussed use of medication and need for follow up. Acute urin ruel tract infection 772500228 N39.0 Discussed medication compliance . Patient will follow up if symptoms do not improve after completion of antibiotic s or if symptoms worsen. Obesity 270652498 E66.9 Discussed healthy diet and routine exercise. [id number] JOEY Brock [facility] Primary Care [place] [address] [place] [address] 05/31/2024 15:03:16 05/31/2024 15:42:07 Health Concerns Section Related Observation LastModified by Organization Detai ls LastModified Time None Recorded Concern Status LastModified by Organization Details LastModified Time None Recorded Advance Directives Directive None Recorded Payers Insurance Date Sequence Insurance Name Policy Number Policy Scott Covered Member ID Scott Member ID Guarantor Name 05/01/2024 3 [place] Carloina Streeter [id number] Carolina Streeter 12/21/2024 1 [employer] (MEDICARE REPLACEMENT/AD VANTAGE - PPO) [id number] Carolina Streeter [id number] Carolina Streeter 05/01/2024 2 [place] [facility] Carolina Streeter [id number] Carolina Streeter 07/23/2024 2 [employer] [place] (MEDICAID [place]PLAC[place] - HMO) Carolina Streeter [id number] Carolina Streeter Notes Date Note Type Note [...] since last OV Stephanie Walker, DEXTER-JUDY [address], [place] [address], [place], [address], [facility] 01/06/2023 16:27:11 4 text/html Patient [...] and discharge. patient denies treatment of symptoms. upsa-whxsjqbAkmutjjkr-wr deredColonoscopy-UTDDEXA -RUSIpg-iscwyreeYtywn-FW PTmsf-MHFXeizyivi-cyfayf esPneumo-UTD JOEY Brock [address], [facility] [address], [place], [address], [place] [facility] 05/01/2024 23:19:55 OBGyn Episode No OBEpisode recorded.
--- OUTSIDE RECORDS SUMMARY | 2025-01-30 01:24 | XMS_ITS | Data Portability ---
Author Organization [facility] Address [address] [place] [address] Care Team Providers Care Financial Risk Manager Name Role Phone JOSEFA GUZMAN Surgical Oncologist [...] By Organization Details Last Modified Time 12/07/2018 [id number] Quitting Tobacco : Care Instructions oajao Not available 12/07/2018 14:16:50 chronic obstructive pulmonary disease (COPD): care instructions oajao Not available 12/07/2018 14:16:49 learning about copd and how to prevent lung infections oajao Not available 12/07/2018 14:16:49 Stop smoking Follow up with her PCP Colonoscopy report Results of her last CT scan of the chest Lab results from [facility] in [place] Follow up in 1 year for Pneumovax [...] Diaz MA [facility] 12/07/2018 13:59:21 Cholecystectomy completed Katelin Diaz MA [facility] 12/07/2018 13:59:26 partial hysterectomy completed Katelin Diaz MA [facility] 12/07/2018 13:59:32 lumpectomy of right breast completed Anabelle Miles MD Attn: Accounting,[address] [facility] [facility], [place], [address], [place] [facility] 12/07/2018 14:15:30 Imaging Results None recorded. Procedure Notes None recorded. Medical Equipment None Reported. Allergies Allergen ID Allergen Name Allergen Category Reaction Reaction Severity Criticality Documentation Date Start Date Code Code System Note Provider Name and Address Organization Details Recorded Time 690610 codeine medicatio n itching severe Not available 12/07/2018 2670 RxNorm Vomit ing Katelin Diaz MA [facility], [place] - [place] 9 13:55:20 Medications Name Sig [...] Updated DateTime 9 156.85 cm 30.6 kg/m2 13028.7 6 g 97.6 [degF] 96 % 96 % 60 /min 114 mm[Hg] 78 mm[Hg] Katelin Diaz MA [facility] 9 14:03:46 Social History Question Answer Notes LastModified by Organizat ion Details LastModified Time Tobacco Smoking Status Current Every Day Smoker Katelin Diaz MA null, [place] [facility] 12/07/2018 13:56:00 What Is Your Level Of [...] Response Coronary Artery Disease N Other N High Blood Pressure N Atrial Fibrillation N Thyroid Problems N Kidney or Bladder Problems N GI Problems N Depression N COPD Y Blood Clots N Skin Problems N Anemia N Heart Attack ([place]) N Diabetes N Anxiety Disorder N Muscle, Joint, or Bone Problems N Seizures/Epilepsy N Acid Reflux (GERD) N Cancer Y Stroke N Asthma N Allergies N High Cholesterol N Hepatitis N Liver Disease N Headaches N Osteoporosis N Heart Failure N Gynecological HistoryNo gynecological history recorded. Obstetrics History GPAL:G 0 P 0 0 0 0 Immunizations Vaccine Type Date Status Note Provider Nam e and Address Organization Details Recorded Time Tdap 8 completed Katelin Diaz MA [facility] [place] 12/07/2018 14:00:50 Pneumococcal conjugate PCV 13 9 completed Not Available [employer] 08/17/2019 02:43:07 Past Encounters Encounter ID Performer Location Encounter Start Date Encounter Closed Date Diagnosis/Indication Diagnosis SNOMED-CT Code Diagnosis ICD10 Code Diagnosis Note [id number] Anabelle Miles MD [facility] (Adult Med) [address] [place] [address] 12/07/2018 13:30:04 12/10/2018 10:45:46 Adult health examination 582289598 Z00.00 Administra tion of pneumococcal vaccine 06774838 Z23 Malignant tumor of breast 225150928 C50.011 Chronic ob structive pulmonary disease 69192672 J44.9 Nicotine dependence 5629 4008 F17.200 Health Concerns Section Related Observation LastModified by Organization Detai ls LastModified Time None Recorded Concern Status LastModified by Organization Details LastModified Time None Recorded Advance Directives Directive None Recorded Payers Insurance Date Sequence Insurance Name Policy Number Policy Scott Covered Member ID Scott Member ID Guarantor Name 12/07/2018 1 [facility] PRIOR TO 01/28/2021 (MEDICAID REPLACEMENT - HMO) Carolina Streeter [id number] Craolina Streeter Notes Date Note Type Note Provider Name and Address Organization Details Recorded Time 12/07/2018 text/html A pneumonia shotBut he doesn't give shots63 y/o [place]F with a PMHX. of Breast cancer, COPDPCP Dr Dain Miles MD Attn: Accounting,[address] [facility], [place], [address], [facility] 12/07/2018 14:44:26 OBGyn Episode No OBEpisode recorded.
[2025-01-30] MEDS: LACTATED RINGERS 1,000 ML 30 ML IV CONT ×2 (06:25→10:20)
--- NOTE | 2025-01-30 07:03 | P.PNAN_ITS ---
Anes - Initial Pre Proc Eval Procedure: Operation Date: 01/30/25 07:30 Proposed Procedures p Vaginal Sacrospinus Fixation, Cystocele Repair, - Rosendo Morgan MD s Possible Urethral Sling Revision - Rosendo Morgan MD Date/Time: 01/30/25 07:03 Surgeon: Rosendo Morgan MD Pre Op Diagnosis: uterine prolapse, cystocele, stress incont Patient Data Age: 69 Gender: F Height: 1.55 m Weight: 71.8 kg Last Vital Signs Temp 36.6 C 01/30/25 06:02 Pulse 60 01/30/25 06:02 Resp 20 01/30/25 06:02 BP 128/83 01/30/25 06:02 Pulse Ox 98 01/30/25 06:02 O2 Del Method Room Air 01/30/25 06:02 Allergies Allergy/AdvReac Type Severity Reaction Status Date / Time codeine Allergy Intermediate Itching/vom Verified 01/30/25 06:05 iting Home Medications ?Medication ?Instructions ?Recorded ?Confirmed ?Type atorvastatin 40 mg tablet 40 mg PO DAILY 08/16/23 01/30/25 History tiotropium 2.5 mcg-olodaterol 2.5 2 puff inhalation DAILY 08/16/23 01/30/25 History mcg/actuation mist for inhalation (Stiolto Respimat) cholecalciferol (vitamin D3) 1,250 1,250 mcg PO WEEKLY 09/07/23 01/30/25 History mcg (50,000 unit) capsule meloxicam 15 mg tablet 15 mg PO DIRECTED 09/07/23 01/30/25 History Patient hx anesthesia problems: none Family hx anesthesia problems: none Results Review: All pre-operative results and documents have been reviewed as part of the pre- operative evaluation. [facility] Past Medical History Medical History COPD (chronic obstructive pulmonary disease) Breast cancer Social History Social History Social History: denies alcohol or drug use. Heavy smoker. Smoking packs per day: 1 Smoking cigarettes per day: 20.0 Years smoked: 50 Smoking pack-years: 50.00 Smoking status: Current every day smoker Tobacco type: cigarettes Alcohol intake: never Substance use: never Living arrangements: with family Spiritual care concerns: No Anes - Eval Final PreProcedure Day of Procedure 01/30/25 07:03 Patient weight: overweight Heart: regular rate and rhythm Lungs: decreased breath sounds Airway: Mallampati scale class II Neurological: alert and oriented Last oral intake: >/= 8 hours ASA classification: III Emergent: no Anesthetic plan: proceed Anesthesia type and monitoring: general ETT and standard monitoring Results Review: All pre-operative results and documents have been reviewed as part of the pre- operative evaluation. Informed Consent: The patient's anesthetic plan and its attendant risks and benefits were discussed with the patient/family/POA. Questions were solicited and answers provided to the satisfaction of the patient/family/POA.
--- NOTE | 2025-01-30 07:12 | WPDHPUPDATE1 ---
History and Physical Update Update Date/Time: 01/30/25 07:12 History and Physical has been reviewed, including an updated exam of the patient. There are NO changes in the patient's condition. Risks, benefits, and alternatives have been discussed and questions answered. Patient agrees to proceed with procedure.
[2025-01-30] MEDS: ceFAZolin 2 GM/D5W 50 ML 2 GM/50 ML BAG IVPB (07:54)
[2025-01-30] MEDS: ALBUTEROL SULFATE NEB 2.5 MG/3 ML INH (07:55)
[2025-01-30] MEDS: BUPIVACAINE/EPINEPHRINE 0.5% 50 ML VIAL 30 ML INFILTRATE (08:29)
--- NOTE | 2025-01-30 09:07 | W.PM.PROC2 ---
Procedure Note - Detailed Date of Procedure 01/30/25 Pre-op Diagnosis Vaginal vault prolapse, cystocele, intrinsic sphincter deficiency Post-op Diagnosis Same Procedure Performed Extraperitoneal colpopexy/sacral spinous ligament fixation Cystocele repair Cystoscopy with suburethral injection of implant material Surgeon Rosendo Morgan MD Anesthesia General Indications A woman with posthysterectomy vaginal vault prolapse as well as stress urinary incontinence/intrinsic sphincter deficiency. Presents for the above. Understands risks of bleeding, infection, damage to the urinary tract, damage to bowel surrounding organs, recurrence of prolapse, persistent or recurrent stress incontinence, hip and leg pain, dyspareunia, blood vessel or nerve injury, need for ancillary procedures, urine retention requiring catheterization, agrees to proceed Findings Vaginal vault prolapse, foreshortened vagina, significant Renae atrophic vaginal tissues with poor integrity, fixed urethra. Vaginal scar Description of Procedure She was correctly identified. Informed consent obtained. She was from the operating room. She was given general anesthesia. She was placed in dorsal lithotomy position. She was prepped draped sterile fashion. Time-out performed. She was given appropriate perioperative antibiotics. Flores catheter was placed. [place] retractor was placed. She had vaginal wall prolapse beyond the introitus. Significantly foreshortened vagina. The significant atrophic tissues. A fixed and scarred urethra from previous surgery. I grasped the cystocele and vault prolapse with Allis clamps. I infiltrated the subcutaneous tissues with local mixed with epinephrine and saline. I made a midline vaginal incision over the top of the prolapse. I dissected out laterally both right and left. She had poor tissue integrity. I did not enter the peritoneum but it was quite close. I entered the retroperitoneal space on the patient's right. I swept the rectum medially. I located the sacral spinous ligament. I then did the dissection on the contralateral side. I did not enter the retroperitoneal space. I then dissected out towards the apex. I took great care not to injure underlying organs. Again I did not enter the peritoneal I used the Capio device as well as a Ethibond suture. I placed a permanent Ethibond suture in the sacral spinous ligament 2 fingerbreadths medial to the ischial spine under direct palpation. Placed the other into the stitch in the vaginal apex. I then performed a plication cystocele repair. I used interrupted 0 Vicryl sutures. I reduced the cystocele. Again a poor tissue integrity was noted. I trimmed excess vaginal mucosa. I then tied down my sacral spinous ligament fixation stitch. This elevated the vaginal apex towards the sacral spinous ligament and completely reduce the prolapse. I then closed the vaginal incision with a running 2-0 Vicryl suture. I examined mid urethra. It was fixed and scarred with no mobility. Tissue integrity was again poor. She is a smoker. At this point I elected to not perform urethral sling as I did not want to place a mesh foreign body in this area. I instead opted for a urethral bulking agent. On cystoscopy she had mild trabeculations. No abnormal red patches. No foreign bodies. No surgical artifact in the bladder urethra. Both ureters were seen to excrete clear yellow urine. I chose a site in the mid urethra 2 cm distal bladder neck. I injected bulking agent circumferentially. I performed several pillows coapted urethra. I used both syringes. There is good bulking effect. Her bladder was left partially full. She was awakened transferred to PACU in stable condition. Estimated Blood Loss 30 Drains No Packing No Pathology None sent Complications No immediate complications Condition Stable
[2025-01-30] MEDS: oxyCODONE HCL (*CRX) 5 MG TAB IR PO (10:15)
[2025-01-30] MEDS: fentaNYL CITRATE INJ (*CRX) 100 MCG/2 ML VIAL 25 MCG IV PUSH ×2 (10:53→13:32)
[2025-01-30] MEDS: ONDANSETRON INJ 4 MG/2 ML VIAL IV PUSH (10:55)
--- NOTE | 2025-01-30 13:32 | SUR.PHASEII ---
1310 - dr. dias aware of pt unable to urinate. order received for hicks and to have patient remove in 24 hours
== END 2025-01-30 13:55 | disposition home or self-care (01) ==
PROVIDERS: PCP Nurse Practitioner Family; Visit Provider Urology
PROC: (CPT 57260; principal; 2025-01-30 07:30)
DX: N99.3 Prolapse of vaginal vault after hysterectomy (principal); N39.3 Stress incontinence (female) (male); N36.42 Intrinsic sphincter deficiency (ISD); F17.210 Nicotine dependence, cigarettes, uncomplicated
CPT/HCPCS: 57282; 57240; 51715; 94640; A9270; J0690; J1100; J2405; J2704; J3010; J7030; J7120; L8606; Q9968

== ENCOUNTER 2025-02-07 15:19 | Outpatient (CLI) | payer MEDICARE, SELFPAY ==
--- NOTE | ~2025-02-07 | MM_ITS ---
EXAMINATION: MM screening isha BI w edilberto HISTORY: Screening TECHNIQUE: Craniocaudal and mediolateral oblique 3-D tomosynthesis images were obtained and synthetic 2-D images were generated. CAD analysis was submitted and interpreted. COMPARISON: Comparison to multiple prior studies sequentially, with oldest reviewed study dated 12/13. BREAST PARENCHYMAL COMPOSITION: Not dense: There are scattered areas of fibroglandular density. FINDINGS: Stable lumpectomy changes in the right breast. There is no evidence of suspicious mass, mark cification, or architectural distortion to suggest malignancy in either breast. There has been no alverto picious interval change. IMPRESSION: 1. No mammographic evidence of malignancy. 2. Recommend routine screening mammography in one year. BI-RADS Category 2: Benign finding(s). Reviewed, dictated and finalized at location []
--- OUTSIDE RECORDS SUMMARY | 2025-02-07 15:23 | XMS_ITS | Data Portability ---
Author Organization [facility] Address [address] [place] [address] Care Team Providers Care Photovoltaic Technician Name Role Phone JOSEFA GUZMAN Surgical Oncologist [...] By Organization Details Last Modified Time 12/07/2018 [id number] Quitting Tobacco : Care Instructions oajao Not available 12/07/2018 14:16:50 chronic obstructive pulmonary disease (COPD): care instructions oajao Not available 12/07/2018 14:16:49 learning about copd and how to prevent lung infections oajao Not available 12/07/2018 14:16:49 Stop smoking Follow up with her PCP Colonoscopy report Results of her last CT scan of the chest Lab results from [facility] in [place] Follow up in 1 year for Pneumovax [...] Recorded Time section completed Katelin Diaz MA [facility] 12/07/2018 13:59:21 Cholecystectomy completed Katelin Diaz MA [facility] 12/07/2018 13:59:26 partial hysterectomy completed Katelin Diaz MA [facility] 12/07/2018 13:59:32 lumpectomy of right breast completed Anabelle Miles MD Attn: Accounting,[address] [facility], [place], [address], [place] [facility] 12/07/2018 14:15:30 Imaging Results None recorded. Procedure Notes None recorded. Medical Equipment None Reported. Allergies Allergen ID Allergen Name Allergen Category Reaction Reaction Severity Criticality Documentation Date Start Date Code Code System Note Provider Name and Address Organization Details Recorded Time 525216 codeine medicatio n itching severe Not available 12/07/2018 2670 RxNorm Vomit ing Katelin Diaz MA [facility], [place] - [place] 9 13:55:20 Medications Name Sig [...] blood by Pulse oximetry Heart rate Systolic And Diastolic Provider Name and Address Organization Details Last Updated DateTime 9 156.85 cm 30.6 kg/m2 66679.7 6 g 97.6 [degF] 96 % 96 % 60 /min 114/78 mm[Hg] Katelin Diaz MA [facility] 9 14:03:46 Social History Question Answer Notes LastModified by Organizat ion Details LastModified Time Tobacco Smoking Status Current Every Day Smoker Katelin Diaz MA null, [place] - [place] 12/07/2018 13:56:00 What Is Your Level Of [...] High Blood Pressure N Atrial Fibrillation N Kidney or Bladder Problems N Thyroid Problems N GI Problems N Depression N COPD Y Blood Clots N Skin Problems N Anemia N Heart Attack ([place]) N Anxiety Disorder N Diabetes N Muscle, Joint, or Bone Problems N Seizures/Epilepsy N Acid Reflux (GERD) N Cancer Y Stroke N Asthma N Allergies N High Cholesterol N Hepatitis N Liver Disease N Headaches N Heart Failure N Osteoporosis N Gynecological HistoryNo gynecological history recorded. Obstetrics History GPAL:G 0 P 0 0 0 0 Immunizations Vaccine Type Date Status Note Provider Nam e and Address Organization Details Recorded Time Tdap 8 completed Katelin Diaz MA [facility] 12/07/2018 14:00:50 Pneumococcal conjugate PCV 13 9 completed Not Available [employer] 08/17/2019 02:43:07 Past Encounters Encounter ID Performer Location Encounter Start Date Encounter Closed Date Diagnosis/Indication Diagnosis SNOMED-CT Code Diagnosis ICD10 Code Diagnosis Note [id number] Anabelle Miles MD [facility] (Adult Med) [address] [place] [address] 12/07/2018 13:30:04 12/10/2018 10:45:46 Adult health examination 644725852 Z00.00 Administra tion of pneumococcal vaccine 17265108 Z23 Malignant tumor of breast 234803365 C50.011 Chronic ob structive pulmonary disease 86549392 J44.9 Nicotine dependence 5629 4008 F17.200 Health Concerns Section Related Observation LastModified by Organization Detai ls LastModified Time None Recorded Concern Status LastModified by Organization Details LastModified Time None Recorded Advance Directives Directive None Recorded Payers Insurance Date Sequence Insurance Name Policy Number Policy Scott Covered Member ID Scott Member ID Guarantor Name 12/07/2018 1 [facility] PRIOR TO 2021 (MEDICAID REPLACEMENT - HMO) Carolina Streeter [id number] Carolina Streeter Notes Date Note Type Note Provider Name and Address Organization Details Recorded Time 12/07/2018 text/html A pneumonia shotBut he doesn't give shots63 y/o WF with a PMHX. of Breast cancer, COPDPCP Dr Dain Miles MD Attn: Accounting,[address] [facility], [place], [address], [facility] 12/07/2018 14:44:26 OBGyn Episode No OBEpisode recorded.
--- OUTSIDE RECORDS SUMMARY | 2025-02-07 15:23 | XMS_ITS | Continuity of Care Document ---
Author Organization [facility] Address [address] [place] [address] Phone Care Team Providers Care Sponge Maker Name Role Phone Boaz Gautam MD Unavailable [...] Diagnoses Date Provider Providers Copied on Encounter [facility], [address], [place], [place], [address], tel:[phone] [facility] No Information 9 Dain Sandra. [address], [address], [place], [place], [address] , [place]. tel:[phone] Referring Provider: Lukasz Odom [address], [place], [place], [address]. tel:[phone] OFFICE/OUTPA TIENT VISIT, EST [facility], [address], [place], [place], [address], [place] tel:[phone] [facility] osteoporos is1 (chief complaint) polycythem ia1 (chief complaint) glucose1 (chief complaint) COPD1 (chief complaint) hand (chief complaint) abrasion1 (chief complaint) OsteoporosisEmphyse maSecondary polycythemiaHypergl ycemia 0 9 Dain Sandra. [address], [address], [place], [place], [address] , [place]. tel:[phone] Referring Provider: Lukasz Odom [address], [place], [place], [address]. tel:[phone] PREV VISIT, EST, AGE 40-64 [facility], [address], [place], [place], [address], [place] tel:[phone] [facility] Medicine PHysical (chief complaint) Encounter for general adult medical exam w abnormal findingsSecondary polycythemiaEmphyse maOsteoporosisHyper lipidemia 9 Dain Sandra. [address], [address], [place], [place], [address] , [place]. tel:[phone] Referring Provider: Lukasz Odom [address], [place], [place], [address]. tel:[phone] OFFICE/OUTPA TIENT VISIT, [facility], [address], [place], [place], [address], [place] tel:[phone] [facility] COPD1 (chief complaint) Body mass index (BMI) 31.0-31.9, adultEmphysema 8 Dain Duvall [address], [address], [place], [place], [address] , [place]. tel:[phone] Referring Provider: Lukasz Odom [facility] [address], [place], [place], [address]. tel:[phone] OFFICE/OUTPA TIENT VISIT, [facility], [address], [place], [place], [address], [place] tel:[phone] [facility] osteopenia 1 (chief complaint) COPD1 (chief complaint) HLp (chief complaint) polycyther mia1 (chief complaint) HyperlipidemiaSecon coco polycythemiaOth disrd of bone density and structure, unspecified siteEmphysemaHyperg lycemia 8 Dain Duvall [address], [address], [place], [place], [address] , [place]. tel:[phone] Referring Provider: Lukasz Odom [address] [facility] [address], [place], [place], [address]. tel:[phone] OFFICE/OUTPA TIENT VISIT, [facility], [address], [place], [place], [address], [place] tel:[phone] [facility] COPD1 (chief complaint) tobacco1 (chief complaint) HTn (chief complaint) breast CA1 (chief complaint) Body mass index (BMI) 32.0-32.9, adultEmphysemaTobac co useMalignant neoplasm of nipple and areola, right female breastEssential (primary) hypertension 8 Dain Duvall [address], [address], [place], [place], [address] , [place]. tel:[phone] Referring Provider: Lukasz Odom [address], [place], [address]. tel:[phone] OFFICE/OUTPA TIENT VISIT, EST [facility], [address], [place], [place], [address], [place] tel:[phone] [facility] copd1 (chief complaint) tobacco1 (chief complaint) polycyther mia1 (chief complaint) Body mass index (BMI) 31.0-31.9, adultEmphysemaTobac co useSecondary polycythemia Sep-2 8 Dain Sandra. [address], [address], [place], [place], [address] , [place]. [phone] Referring Provider: Lukasz Odom [address], [place], [address]. tel:[phone] PREV VISIT, EST, AGE 40-64 [facility], [address], [place], [place], [address], [place] tel:[phone] [facility] PHysical (chief complaint) Encounter for general adult medical exam w abnormal findingsHemoptysisE mphysemaMalignant neoplasm of nipple and areola, right female breast 0 7 Dain Sandra. [address], [place], [place], [address] , [place]. tel:[phone] Referring Provider: Lukasz Odom [address], [place], [address]. tel:[phone] OFFICE/OUTPA TIENT VISIT, EST [facility], [address], [place], [place], [address], [place] tel:[phone] [facility] vitamin D (chief complaint) H&H (chief complaint) mammogram (chief complaint) Breast noduleHemoglobin diseaseVitamin D deficiencyHeel spur Trever-0 2201 5 Dain Duvall [address], [place], [place], [address] , [place]. tel:[phone] Referring Provider: Lukasz Odom [address], [place], [place], [address]. tel:[phone] PREV VISIT, NEW, AGE 40-64 [facility], [address] [place], [place], [address], tel:[phone] [facility] Physical (chief complaint) Routine Medical ExamRoutine Medical Exam 5 Dain Sandra. [address] [place], [address] , [place]. tel:[phone] Family History Family Member Type Diagnosis Age [...] eted Goal Tobacco cessation counseling completed Goal Tobacco cessation counseling completed Goal Special [...] is on incruse . 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 Pt still feels sob frequently. pt [...] she had normal manual breast exam by [employer] two weeks ago. Pt denies any nipple [...] adult Quit smoking Related to Osteo porosis Weight management Related to Enc ounter for general adult medical exam w abnormal findings Quit smoking Related to Encou nter for general adult medical exam w abnormal findings Special diet education Related t o Body mass index (BMI) 31.0-31.9, adult Special diet education Related t o Body mass index (BMI) 31.0-31.9, adult Quit smoking Related to Emphy sema Special diet education Related t o Body mass index (BMI) 31.0-31.9, adult Stop smoking. Related to Hyper lipidemia Quit smoking Related to Emphy sema Special diet education Related t o Body mass index (BMI) 32.0-32.9, adult Special diet education Related t o Body mass index (BMI) 31.0-31.9, adult Quit smoking Related to Emphy sema Prescribed Activity and Exercise Education Related to Dietary Surveillance and Counseling Prescribed Diet Educ ation/Lifestyle Education Regarding Diet Related to Dietary Surveillance and Counseling Assessments Type Assessment Date No Information
--- OUTSIDE RECORDS SUMMARY | 2025-02-07 15:23 | XMS_ITS | Data Portability ---
Author Organization [facility] Publisha, Main Office Address [address] [place] [address] Assessment No assessment recorded. Plan of Treatment Reminders Order Date Submit Date Provider Last Modified By Organization Details Last Modified Time Details Appointments None recorded. Lab urinalysis, dipstick 2023 [facility] [address], [place], [address], 15:54:06 lipid panel, serum [address] (Lab), [address] [place], [address], 10:05:22 hepatic function panel, serum [address] (Lab), [address] [place], [address], 10:05:22 CMP, serum or plasma [address] (Lab), [address] [place], [address], 10:05:22 TSH, serum or plasma [address] (Lab), [address] [place], [address], 10:05:22 CBC w/ auto diff [address] (Lab), [address] [place], [address], 4 10:05:23 glycohemogl obin, total, blood [address] (Lab), [address] [place], [address], 4 10:05:23 vitamin D, 25-hydroxy, total, serum [address] (Lab), [address] [place], [address], 4 10:05:22 alpha-1-ant itrypsin (aat) phenotype, serum [address] (Lab), [address] [place] [address], [address], 3 09:50:46 ige, total, serum [address] (Lab), [address] [place] [address], [address], 3 09:50:47 igg subclasses 1+2+3+4, serum [address] (Lab), [address] [place] [address], [address], 3 09:50:47 tb (M tuberculosi s), ifn-gamma gaby, blood [address] (Lab), [address] [place] [address], [address], 3 09:50:47 BNP (B-type natriuretic peptide), blood [address] (Lab), [address] [place] [address], [address], 3 09:50:47 alpha-1-ant itrypsin (aat), QN, serum [address] (Lab), [facility] [address], [place], [address], 3 09:50:47 rast class, qualitative , serum [address] (Lab), [address] [place] [address] [address], [place], [address], 3 09:50:47 eosinophils , auto, blood (OBS) [address] (Lab), [address] [place] [address] [address], [place], [address], 3 09:50:47 Referral None recorded. Procedures None recorded. Surgeries None recorded. Imaging MAMMO, screening, digital, bilateral - Please call pt to schedule [email or web address] [place] [address] Imaging Center, [address] [place] [address] [address], [place], [address], 4 10:36:04 Medication Orders Macrobid 100 mg capsule 2023 [facility], [address] [facility], [place], [place], [id number], 15:58:31 atorvastati n 40 mg tablet 2023 [facility] #61232, [address], [place], [place], [id number], 4 15:47:10 cholecalcif henri (vitamin D3) 1,250 mcg (50,000 unit) capsule 2023 [facility] #40466, [address], [place], [place], [id number], 4 15:47:09 meloxicam 15 mg tablet 2023 024 [facility] #78997, [address], [place], [place], [id number], 4 15:47:08 terconazole 0.8 % vaginal cream 2023 024 [facility]208, [address], [place], [place], [id number], 4 15:47:09 albuterol sulfate HFA 90 mcg/actuati on aerosol inhaler 2022 [email or web address] [place] [address] [facility]24087, [address], [place], [place], [id number], 4 15:33:32 Stiolto Respimat 2.5 mcg-2.5 mcg/actuati on solution for inhalation [email or web address] [facility] #43564, [address], [place], [place], [id number], 4 15:33:22 Patient TargetsNo targets recorded. Patient Instructions Encounter Date Encounter Id Patient Instructions Last Modified By Organization Details Last Modified Time 01/06/2023 [id number] complete PFT w/ post bronchodilator spirometry* - Approved [id number] 01/10/2023-02/09/20 Not available 07/05/2023 10:57:27 Reason for Referral None Reported. Results Created Date Observation Date Name Description Value Unit Range Abnormal Flag Note LastModifiedBy Organization Detail LastModifiedTime 03/10/20 23 03/10/2023 CULTU RE URINE urc ===== ===== ===== ===== ===== ===== ===== ===== ===== ===== ===== ===== ===== ===== ===== ===== ===== ===== ===== ===== ===== ===== ===== ===== CULTU RE NO.: [id number] Exam Statu s: Final Exam Type: [...] [facility]) [address], [place], [address], 03/12/2023 08:27:14 03/10/2003/10/2023 urina lysis , dipst ick Leukocytes (reference range: negative darrel/ l) Large Not Available [address], [place], [address], 03/09/2023 11:59:39 03/10/2003/10/2023 urina lysis , dipst ick Nitrite (reference rage: negative mg/dl) positi ve Not Available [address], [place], [address], 03/09/2023 11:59:39 03/10/20 23 03/10/2023 urina lysis , dipst ick Urobilinogen (reference range: 0.2-1 mg/dl) 0.2 Not Available [address], [place], [address], 03/09/2023 11:59:39 03/10/20 23 03/10/2023 urina lysis , dipst ick Protein (reference range: negative mg/dl) Large Not Available [address], [place], [address], 03/09/2023 11:59:39 03/10/20 23 03/10/2023 urina lysis , dipst ick pH (reference range: 5-7) 6.5 Not Available [address], [place], [address], 03/09/2023 11:59:39 03/10/20 23 03/10/2023 urina lysis , dipst ick Blood (reference range: negative Alhaji/ l) Large Not Available [address], [place], [address], 03/09/2023 11:59:39 03/10/20 23 03/10/2023 urina lysis , dipst ick Specific [place] (reference range: 1.005-1.030) 1.030 Not Available [address], [place], [address], 03/09/2023 11:59:39 03/10/20 23 03/10/2023 urina lysis , dipst ick Ketone (reference range: negative mg/dl) Negati ve Not Available [address], [place], [address], 03/09/2023 11:59:39 03/10/20 23 03/10/2023 urina lysis , dipst ick Bilirubin (reference range: negative mg/dl) Negati ve Not Available [address], [place], [address], 03/09/2023 11:59:39 03/10/20 23 03/10/2023 urina lysis , dipst ick Glucose (reference range: negative mg/dl) Negati ve Not Available [address], [place], [address], 03/09/2023 11:59:39 03/10/20 23 03/10/2023 urina lysis , dipst ick Appearance Cloudy Not Available [address], [place], [address], 03/09/2023 11:59:39 03/10/20 23 03/10/2023 urina lysis , dipst ick Color Dark Yellow Not Available [address], [place], [address], 03/09/2023 11:59:39 05/01/20 24 05/01/2024 urina lysis , dipst ick Leukocytes (reference range: negative darrel/ l) Trace Not Available [address], [place], [address], 05/01/2024 15:42:25 05/01/20 24 05/01/2024 urina lysis , dipst ick Nitrite (reference rage: negative mg/dl) positi ve Not Available [address], [place], [address], 05/01/2024 15:42:25 05/01/20 24 05/01/2024 urina lysis , dipst ick Urobilinogen (reference range: 0.2-1 mg/dl) 1 Not Available [address], [place], [address], 05/01/2024 15:42:25 05/01/20 24 05/01/2024 urina lysis , dipst ick Protein (reference range: negative mg/dl) Negati ve Not Available [address], [place], [address], 05/01/2024 15:42:25 05/01/20 24 05/01/2024 urina lysis , dipst ick pH (reference range: 5-7) 7.0 Not Available [address], [place], [address], 05/01/2024 15:42:25 05/01/20 24 05/01/2024 urina lysis , dipst ick Blood (reference range: negative Alhaji/ l) Negati ve Not Available [address], [place], [address], 05/01/2024 15:42:25 05/01/20 24 05/01/2024 urina lysis , dipst ick Specific [place] (reference range: 1.005-1.030) 1.020 Not Available [address], [place], [address], 05/01/2024 15:42:25 05/01/20 24 05/01/2024 urina lysis , dipst ick Ketone (reference range: negative mg/dl) Negati ve Not Available [address], [place], [address], 05/01/2024 15:42:25 05/01/2005/01/2024 urina lysis , dipst ick Bilirubin (reference range: negative mg/dl) Negati ve Not Available [address], [place], [address], 05/01/2024 15:42:25 05/01/20 24 05/01/2024 urina lysis , dipst ick Glucose (reference range: negative mg/dl) Negati ve Not Available [address], [place], [address], 05/01/2024 15:42:25 05/01/20 24 05/01/2024 urina lysis , dipst ick Appearance Clear Not Available [address], [place], [address], 05/01/2024 15:42:25 05/01/20 24 05/01/2024 urina lysis , dipst ick Color Pale Yellow Not Available [address], [place], [address], 05/01/2024 15:42:25 05/31/20 24 05/31/2024 urina lysis , dipst ick Leukocytes (reference range: negative darrel/ l) Trace Not Available [address], [place], [address], 05/31/2024 15:11:30 05/31/20 24 05/31/2024 urina lysis , dipst ick Nitrite (reference rage: negative mg/dl) positi ve Not Available [address], [place], [address], 05/31/2024 15:11:30 05/31/20 24 05/31/2024 urina lysis , dipst ick Urobilinogen (reference range: 0.2-1 mg/dl) 0.2 Not Available [address], [place], [address], 05/31/2024 15:11:30 05/31/20 24 05/31/2024 urina lysis , dipst ick Protein (reference range: negative mg/dl) Negati ve Not Available [address], [place], [address], 05/31/2024 15:11:30 05/31/20 24 05/31/2024 urina lysis , dipst ick pH (reference range: 5-7) 7.0 Not Available [address], [place], [address], 05/31/2024 15:11:30 05/31/20 24 05/31/2024 urina lysis , dipst ick Blood (reference range: negative Alhaji/ l) Non-He molyze d: Trace Not Available [address], [place], [address], 05/31/2024 15:11:30 05/31/20 24 05/31/2024 urina lysis , dipst ick Specific [place] (reference range: 1.005-1.030) 1.020 Not Available [address], [place], [address], 05/31/2024 15:11:30 05/31/20 24 05/31/2024 urina lysis , dipst ick Ketone (reference range: negative mg/dl) Negati ve Not Available [address], [place], [address], 05/31/2024 15:11:30 05/31/20 24 05/31/2024 urina lysis , dipst ick Bilirubin (reference range: negative mg/dl) Negati ve Not Available [address], [place], [address], 05/31/2024 15:11:30 05/31/20 24 05/31/2024 urina lysis , dipst ick Glucose (reference range: negative mg/dl) Negati ve Not Available [address], [place], [address], 05/31/2024 15:11:30 05/31/20 24 05/31/2024 urina lysis , dipst ick Appearance Slight ly Cloudy Not Available [address], [place], [address], 05/31/2024 15:11:30 05/31/20 24 05/31/2024 urina lysis , dipst ick Color Yellow Not Available [address], [place], [address], 05/31/2024 15:11:30 06/09/20 23 06/09/2023 MAMMO , scree ankit, bilat eral No observ ation record ed. [email or web address] [facility] [address] [place], [address], 12/08/2023 12:06:14 06/09/2006/09/2023 US ran felicia No observ ation record ed. [email or web address] [facility] [address], [place], [address], 12/08/2023 12:06:32 Result Notes None recorded. Problems Name Problem SNOMED Code Status Onset Date Resolution Date Notes Provider Name and Address Organization Details Recorded Time Recurrent urinary tract infection 996958093 Active 2022 SUNG Fuentes [address], [place], [address] , [facility] [employer] 3 10:30:58 Vitamin D deficienc y 25298218 Active 2022 SUNG Fuentes [address], [place], [address] , [facility] [employer] 3 10:35:42 Pain in both feet 17589568227 448512 Active 2022 SUNG Fuentes [address], [place], [address] , [facility] [employer] 3 10:30:12 Prediabet es 516506793 Active 2022 SUNG Fuentes [address], [place], [address] , [facility] [employer] 3 11:36:12 Hyperlipi demia 38613044 Active 2022 SUNG Fuentes [address], [place], [address] , [facility] [employer] 3 14:01:19 Urinary symptoms 704985440 Active 2022 DEXTER Alston [address], [place], [address] , [facility] 3 11:59:35 Acute urinary tract infection 158571666 Active 2022 DEXTER Alston [address], [place], [address] , [facility] 3 12:27:55 Dysuria 60704301 Active 2023 JOE[address] Brock [address], [place], [address] , [facility] [place] 4 15:42:20 Candidias is of vagina 56628644 Active 2023 JOEY Brock [address], [place], [address] , [facility] [place] 4 15:45:20 Obesity 172633517 Active 2023 JOEY Brock [address], [place], [address] , [facility] [place] [place] [employer] [facility] 4 23:19:09 Chronic obstructi ve pulmonary disease 34699853 Active 2018 Not Available [facility] 3 04:50:04 Acute exacerbat ion of chronic obstructi ve pulmonary disease 448700380 Active 2021 Not Available [facility] 3 04:50:04 Multiple nodules of lung 277289756 Active 2019 Not Available [facility] 3 04:50:04 Nicotine dependenc e 31060087 Completed 201811/11/2020 Not Available [facility] 3 04:50:04 Dyspnea on exertion 44166776 Active 2021 Not Available [facility] 3 04:50:04 Hemoptysi s 23630072 Active 2021 Not Available [facility] 3 04:50:04 Chronic cough 23141580 Active 2021 Not Available [facility] 3 04:50:04 COVID-19 750889482 Active 2021 Not Available [facility] 3 04:50:04 Ex-smoker 7537011 Completed 201911/11/2020 Not Available [facility] 3 04:50:05 Notes:Medical History: Nicot [...] CPT Code, Initial completed SUNG Fuentes [address] [facility], [place], [address], [facility] [place] [place] [employer] [facility] 11/25/2022 08:51:28 Foot Surgery completed [facility] 04:42:13 Breast [facility] completed Not Available [facility] 09/28/2022 04:42:13 repair of urinary bladder completed Not Available [facility] 09/28/2022 04:42:13 vulvectomy completed Not Available [facility] 09/28/2022 04:42:13 repair of rectum completed Not Available [facility] 09/28/2022 04:42:13 section completed Not Available [facility] 09/28/2022 04:42:13 Imaging Results None recorded. Procedure Notes None recorded. Medical Equipment None Reported. Allergies Allergen ID Allergen Name Allergen Category Reaction Reaction Severity Criticality Documentation Date Start Date Code Code System Note Provider Name and Address Organization Details Recorded Time 7628 codeine medicatio n vomiting Not available Not available 09/28/2022 2670 RxNorm Not Available [facility] 05:02:36 Medications Name Sig Start Date Stop [...] completed Not Available Not Available Not Available hydrocodone 5 mg-acetamin ophen 325 mg tablet TAKE 1 TABLET BY MOUTH EVERY 6 HOURS NEEDED FOR PAIN active Not Available Not Available No t Available meloxicam 15 mg tablet Take 1 [...] Not Available Not Available No t Available docusate sodium 100 mg capsule TAKE 1 CAPSULE BY MOUTH TWICE DAILY active Not Available Not Available No t [...] in Arterial blood by Pulse oximetry Systolic And Diastolic Provider Name and Address Organization Details Last Updated DateTime 3 157.48 cm 97.2 [degF] 30.4 kg/m2 04348.3 3 g 57 /min 96 % 96 % 114/68 mm[Hg] Lori Reeder MA DC [employer] [facility] 3 14:38:34 Date Recorded Body height Provider Name an d Address Organization Details Last Updated DateTime 03/10/2023 157.48 cm Shayy Rm LPN [facility] [employer] [facility] [employer] [facility] 03/10/2023 10:59:55 Date Recorded Body weight Body temperature Oxygen saturation Oxygen saturation in Arterial blood by Pulse oximetry Heart rate Systolic And Diastolic Provider Name and Address Organization Details Last Updated DateTime 4 80909.7 8 g 97.9 [degF] 95 % 95 % 70 /min 138/76 mm[Hg] Blake Prince RN [facility] 4 15:32:44 Social History Question Answer Notes LastModified by Organizat ion Details LastModified Time Tobacco Smoking Status Current Every Day Smoker Not Available [facility] 09/28/2022 04:06:58 What Is Your Level Of Caffeine Consumption? Moderate 2 Cups Of Coffee Every Am [id number] Information not available 09/28/2022 How Much Tobacco Do You Chew? None [id number] Information not available 09/28/2022 In The 14 Days Before Symptom Onset, Have You Had Close Contact With A Laboratory-confir med COVID-19 While That Case Was Ill? No [id number] Information not available 09/28/2022 In The 14 Days Before Symptom Onset, Have You Had Close Contact With A Person Who Is Under Investigation For COVID-19 While That Person Was Ill? No [id number].[id number] Information not available 09/28/2022 What Was The Date Of Your Most Recent Tobacco Screening? 01/06/2023 Information not available 01/06/2023 Have You Ever Been Counseled For Unhealthy Alcohol Use? No [email or web address] Information not available 11/18/2022 Do You Have Any Pets? No [id number].[id number] [id number] Information not available 09/28/2022 At What Age Did You Start Smoking Tobacco? 18 [id number].[id number] Information not available 09/28/2022 How Much Tobacco Do You Smoke? 0.5 PPD Information not available 01/06/2023 Do You Participate In Social Media? Yes Just To See Family Pictures Information not available 11/18/2022 Has Tobacco Cessation Counseling Been Provided? No Information not available 11/18/2022 How Many Years Have You Smoked Tobacco? 47 MIGRATION.28320 84248 Information not available 09/28/2022 Have You Recently Traveled Abroad? No Information not available 01/06/2023 Have You Used IV Drugs? No [id number].53557 57794 Information not available 09/28/2022 Sex: Female Functional Status Question Answer Note LastModified by Organizat ion Details LastModified Time Do you use any illicit or recreational drugs? Yes Marijuana every once in awhile MIGRATION.22689 [id number] Information not available 09/28/2022 Do you or have you ever used any other forms of tobacco or nicotine? No Information not available 11/18/2022 What is your level of alcohol consumption? Occasional maybe once a year MIGRATION.36319 07364 Information not available 09/28/2022 Do you or have you ever used smokeless tobacco? Never used smokeless tobacco MIGRATION.70899 39724 Information not available 09/28/2022 Do you or have you ever used e-cigarettes or vape? Never used electronic cigarettes MIGRATION.69132 38307 Information not available 09/28/2022 Mental Status Question Answer Note LastModified by Organization D etails LastModified Time Do you feel stressed (tense, restless, nervous, or anxious, or unable to sleep at night)? [id number] [email or web address] Information not available 11/18/2022 Family History Relationship Description Onset Age of this Age Resolved Age Notes LastModified by Organization Details LastModified Time Mother Hypertensive disorder [email or web address] Not available 2022 10:21:48 Brother Hypertensive disorder [email or web address] Not available 2022 10:21:48 Sister Hypertensive disorder [email or web address] Not available 2022 10:21:48 Sister Diabetes mellitus [email or web address] Not available 2022 10:21:59 Father Family history of malignant neoplasm [email or web address] Not available 2022 10:22:34 Medical History No medical history recorded. Gynecological HistoryNo gynecological history recorded. Obstetrics History GPAL:G 0 P 0 0 0 0 Immunizations Vaccine Type Date Status Note Provider Nam e and Address Organization Details Recorded Time COVID-19, mRNA, LNP-S, PF, 30 mcg/0.3 mL dose 10/10/2020 completed Not Available [facility] 3 05:02:00 Influenza, high-dose, quadrivalent, PF 04/30/2020 completed Not Available [facility] 3 05:02:01 Influenza, split virus, quadrivalent, PF 05/23/2019 completed Not Available [facility] 3 05:02:01 Past Encounters Encounter ID Performer Location Encounter Start Date Encounter Closed Date Diagnosis/Indication Diagnosis SNOMED-CT Code Diagnosis ICD10 Code Diagnosis Note [id number] [facility] [place] [address] [place] [address] 11/11/2020 00:00:00 11/11/2020 16:52:41 [id number] [facility] [place] [address] [place] [address] 01/21/2021 00:00:00 01/21/2021 15:32:59 [id number] [facility] [place] [address] [place] [address] 11/03/2021 00:00:00 11/03/2021 16:23:35 [id number] Albino Aiken MD [facility] [place] [address] [facility], [facility] [address] [place] [address] 11/04/2021 00:00:00 11/04/2021 10:45:30 [id number] Stephanie [facility] [place] [address] [place] [address] 11/17/2021 00:00:00 11/17/2021 16:27:56 [id number] Stephanie [facility] [place] [address] [place] [address] 02/23/2022 00:00:00 02/23/2022 14:48:54 [id number] Stephanie Walker [facility] [place] [address] [place] [address] 06/29/2022 00:00:00 06/29/2022 22:07:13 [id number] SUNG Fuentes [facility] Primary Care [facility] [address] [place] [address] 11/18/2022 10:11:55 11/18/2022 10:54:33 Recurrent urinary tract infection 297052206 N39.0 Advised to increase water, states she is only drinking about 16oz per day, avoid sugary/caf feinated drinks. Continue cranberry supplement .Recheck urine. Will send referral to urology due to repeated infections . Vitamin D deficiency 347 92552 E55.9 Has not been on supplement recently. Diabetes m ellitus screening 368845936 Z13.1 Hyperlipid emia screening 013148603 Z13.220 [id number] SUNG Fuentes [facility] Primary Care [facility] [address] [place] [address] 11/25/2022 10:00:47 11/25/2022 11:33:49 Adult health examination 891999163 Z00.00 Routine labs completed. Recommende d routine eye exams and dental cleanings. Shingles vaccine- recommende dPneumonia vaccine- pt. believes she had vaccinatio ns; will try to get recordsFlu vaccine- recommende d each fallTetanu s vaccine- 2Colono scopy- , recommende d to repeat in 5 yearsMagage gram- 03/02/22, MaddiEXDemetris- pt. states she has had one, does not remember abnormalit ies; will try to get records. Screening for disorder 521571549 Z13.9 Pain in both feet 950959 8867 4829066 M79.671 M79.672 Mainly in heels. 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 If no improvemen t will refer to podiatry. Prediabetes 940447866 R7 3.03 (11/18/22) A1C 6.1Advised to work on diet/exerc ise, mainly decreasing carbs/suga rs.Will continue to monitor. Vitamin D deficiency 347 76452 E55.9 Started on weekly supplement . [id number] Stephanie Walker, [facility] [place] [address] [place] [address] 01/06/2023 14:28:52 01/06/2023 15:38:16 Chronic obstructive pulmonary disease 40687715 J44.9 PFT 03/2020 with FEV1 77% and [...] PRN for concernsRX sent today Chronic cough [id number] R 05.3 Multifacto ralSmoking cessation Dyspnea on exertion 6084 5006 R06.09 Check labs Hemoptysis [id number] R04. 2 R05.3 R06.00 J44.9 ResolvedBr onchoscopy completed last year Nicotine dependence 5629 4008 Z87.891 Smoking cessation counseling and techniques reviewed at length. Literature reviewed. Avoid triggers, support groups. Distractio n techniques Greater than 3 but less than 10 minutes spent discussing cessation. Declines NRT. Discussed Rx options if needed in the future. [id number] DEXTER Alston [facility] Primary Care [address] [place] [address] 03/10/2023 10:42:08 03/10/2023 17:01:13 [id number] Kassidy Asencio MD [facility] Primary Care [address] [place] [address] 03/09/2023 17:17:23 04/29/2023 04:06:34 Urinary symptoms [id number] R39.9 [id number] DEXTER BrockSahil [address] [place] [address] 05/01/2024 15:23:53 05/01/2024 15:50:11 Adult health examination [id number] Z00.01 Discussed medication compliance and routine follow up.Discuss ed healthy diet and routine exercise.Cecilia garlandwed vaccine records and made recommenda tions as needed.Enc ouraged annual eye and dental exams, as well as twice yearly dental cleanings. Will check screening labs as listed below. Screening mammography 24 121272 Z12.31 Pain in both feet 795510 7898 [id number] M79.671 M79.672 Will refill meds as listed below. Vitamin D deficiency 347 65313 E55.9 Hyperlipidemia 10132599 E78.5 Will continue current medication s and recheck labs as listed below. Dysuria 13624400 R30.0 Candidiasis of vagina 72 072613 B37.31 Discussed use of medication and need for follow up. Acute urin ruel tract infection [id number] N39.0 Discussed medication compliance . Patient will follow up if symptoms do not improve after completion of antibiotic s or if symptoms worsen. Obesity [id number] E66.9 Discussed healthy diet and routine exercise. [id number] JOEY Brock [facility] Primary Care [address] [place] [address] 05/31/2024 15:03:16 05/31/2024 15:42:07 Health Concerns Section Related Observation LastModified by Organization Detai ls LastModified Time None Recorded Concern Status LastModified by Organization Details LastModified Time None Recorded Advance Directives Directive None Recorded Payers Insurance Date Sequence Insurance Name Policy Number Policy Scott Covered Member ID Scott Member ID Guarantor Name 05/01/2024 3 [place] Streeter [id number] [place] Streeter 12/21/2024 1 HUMANA (MEDICARE REPLACEMENT/AD VANTAGE - PPO) [id number] Carolina Streeter [id number] Carolina Streeter 05/01/2024 2 [place] [facility] Carolina Streeter [id number] Carolina Streeter 07/23/2024 2 [employer] (MEDICAID REPLACEMENT - HMO) Carolina Streeter [id number] Carolina Streeter Notes Date Note Type Note [...] no exacerbation since last OV Stephanie Walker, FIELD EDUCATION COORDINATOR-BC [address] [facility] [address], [address], [facility] [place] [place] [employer] [facility] 01/06/2023 16:27:11 4 text/html Patient is a [...] and discharge. patient denies treatment of symptoms. mvjo-yoxgihiRgkijnvve-af deredColonoscopy-UTDDEXA -OXLKop-bkbupkcaMheds-WQ UTseh-YBAYifuxowd-zmlkyy esPneumo-UTD Destinee Cristina, FIELD EDUCATION COORDINATOR-C [address] [facility], [facility] [address], [place], [address], [facility] 05/01/2024 23:19:55 OBGyn Episode No OBEpisode recorded.
--- OUTSIDE RECORDS SUMMARY | 2025-02-07 15:23 | XMS_ITS | Clinical Summary ---
Author Organization [facility] Address [address] [place] [address] Phone Care Team Providers Care Template Maker Name Role Phone Boaz Gautam Primary Care Provider [phone] Allergies Active Allergy Reactions Criticality Noted Date Comments Codeine Itching,Nausea 07/09/2015 Medications Stiolto Respimat 2.5-2.5 MCG/ACT Aerosol Solution INHALE 2 PUFFS BY MOUTH EVERY DAY 03/16/2023 Active meloxicam (MOBIC) 15 MG Tablet Take 1 Tablet by mouth daily. 02/24/2023 Active atorvastatin (LIPITOR) 40 MG Tablet Take 40 mg by mouth daily. 03/14/2023 Active Cholecalciferol (Vitamin D3) 1.25 MG (95041 UT) Capsule TAKE 1 CAPSULE BY MOUTH [...] season) 2024 10/10/2020, 10/06/2020 Mammogram 06/09/2024 06/09/2023, 12/30, 12/16/2019, Additional history exists Influenza Immunization (#1) 2025 04/30/2020, 1 Respiratory Syncytial Virus (RSV) Immunization (Adult) (1 [...] Recently Relevant to Health Maintenance Insurance MEDICAID [facility] MEDICARE C HUMANA Care Teams Template Maker Relationship Specialty Start Date End Date Boaz Gautam [address] [place], [place] [id number] PCP - General Family Medicine 07/08/15
--- OUTSIDE RECORDS SUMMARY | 2025-02-07 15:23 | XMS_ITS | Clinical Summary ---
Author Organization [facility] Address [address] [place] [address] Care Team Providers Care Worship Director Name Role Phone Boaz Gautam MD Primary Care Provider [phone] Source Comments [facility],non-[facility] Affiliates and Associated Physician Practices is amultiple site organization consisting of ambulatory clinics and hospital sitesin [place], [place], [place] and [place]. This disclosure is being madepursuant to the Care Everywhere program and may not contain all information available regarding this patient. 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
--- OUTSIDE RECORDS SUMMARY | 2025-02-07 15:23 | XMS_ITS | Clinical Summary ---
Author Organization [facility] Address [address] [place] [address] Care Team Providers Care Civil Design Technician Name Role Phone Boaz Gautam MD Primary Care Provider [phone] Allergies Active Allergy Reactions Criticality Noted Date [...] to Face completed within 30 days: {yes no:066234::yes } Length of Need: {LENGTH OF NEED:68724205:: 99} months By: {DAMON RX O2:14642444} Active aspirin (MERCEDES) 325 mg tablet Take [...] Comments Blood Pressure 130/82 09/22/2022 2:15 PM NAIL TECH Pulse 66 09/22/2022 2:15 PM NAIL TECH Temperature 36.6 C (97.8 F) 09/22/2022 2:15 PM NAIL TECH Respiratory Rate 20 09/22/2022 2:15 PM NAIL TECH Oxygen Saturation 98% 09/22/2022 2:15 PM NAIL TECH Inhaled Oxygen Concentration - - Weight 75.4 kg (166 lb 3.2 oz) 09/22/2022 2:15 P M NAIL TECH Height 154.9 cm (5' 1) 03/09/2022 3:07 [...] Most Recently Relevant to [place] [address] [place] [employer] [facility] Care Teams Civil Design Technician Relationship Specialty Start Date End Date Boaz Gautam MD [address] [place], [place] [address] [place] [address] PCP - General Family Practice 03/22/17
== END 2025-02-07 15:20 | disposition home or self-care (01) ==
LOC: ANHIMG 15:21
PROVIDERS: PCP Nurse Practitioner Family; Visit Provider Nurse Practitioner Family
DX: Z12.31 Encounter for screening mammogram for malignant neoplasm of breast (principal)
CPT/HCPCS: 77063; 77067

== ENCOUNTER 2025-06-23 11:21 | Emergency (ER) | payer MEDICARE, SELFPAY ==
--- NOTE | ~2025-06-23 | XR_ITS ---
EXAMINATION: Lumbosacral spine 4 views: DATE: 06/23/2025. INDICATION: Low back pain. TECHNIQUE: AP, lateral and spot views were obtained. COMPARISON: None. FINDINGS: 5 lumbar segments are noted. Osteopenic bones are suggested. Significant degenerative disc disease in the lower thoracic spine. Facet arthropathy minimal anterolisthesis at L4-5 level. Calcific changes, probably aorta and iliac arteries. IMPRESSION: 1. Osteopenia. Please correlate with DEXA densitometry. 2. Significant degenerative disc disease in the lower thoracic spine. Facet arthropathy with anterolisthesis at L4-5 level. 3. Calcific changes of abdominal aorta and iliac arteries. Reviewed, dictated and finalized at location T. [facility] IMPRESSION: 1. Osteopenia. Please correlate with DEXA densitometry. 2. Significant degenerative disc disease in the lower thoracic spine. Facet art hropathy with anterolisthesis at L4-5 level. 3. Calcific changes of abdominal aorta and iliac arteries.
[2025-06-23 11:31] VITALS: BP 160/91; PULSE 64; RESP 18; TEMP 36.4; O2SAT 97
[2025-06-23] MEDS: KETOROLAC 30 MG/ML VIAL (*BKC) IM (12:29)
--- NOTE | 2025-06-23 13:26 | ED.BACK ---
HPI - Back Pain/Injury General Chief Complaint: Back Pain/Injury Stated Complaint: lower back injury Time Seen by Provider: 06/23/25 12:04 History of Present Illness HPI Narrative: Patient is a 69-year-old female who presents ER with low back pain. Right-sided. Mild radiation into the leg. Worse with going from sitting to standing and bending. She was cleaning her garage for the upcoming holiday and moved to 40 lb bag of salt and she thinks that may have injured her. She did not start hurting until the next day. No saddle anesthesia. No fevers or chills or sweats. She tried hydrocodone without improvement. Related Data Home Medications ?Medication ?Instructions ?Recorded ?Confirmed ?Last Taken ?Type tiotropium 2.5 mcg-olodaterol 2.5 2 puff inhalation DAILY 08/16/23 04/08/25 01/30/25 03:40 History mcg/actuation mist for inhalation (Stiolto Respimat) cholecalciferol (vitamin D3) 1,250 1,250 mcg PO WEEKLY 09/07/23 04/08/25 01/23/25 History mcg (50,000 unit) capsule meloxicam 15 mg tablet 15 mg PO DIRECTED 09/07/23 04/08/25 01/23/25 History Held on 01/30/25. Instructions: Resume on 02/02/25. Allergies Allergy/AdvReac Type Severity Reaction Status Date / Time codeine Allergy Intermediate Itching/vom Verified 04/08/25 08:35 iting Review of Systems Review of Systems: All systems reviewed & are unremarkable except as noted in HPI and below Constitutional: Constitutional: Reports no additional constitutional complaints Musculoskeletal: Musculoskeletal: Reports no additional musculoskeletal complaints Integumentary/Breasts: Skin/Breast: Reports system reviewed and no additional complaints, except as docu Neurologic: Reports system reviewed and no additional complaints, except as documented PMFSH Past Medical History Medical History (Updated 06/23/25 @ 13:34 by Landry Peter MD) Cervical cancer screening Rectocele COPD (chronic obstructive pulmonary disease) Breast cancer Surgical History Surgical History (Updated 04/08/25 @ 08:37 by Uma Frances Demetris) History of orthopedic surgery feet Delivery by section H/O: hysterectomy H/O vulvectomy Family History Family History (Updated 04/08/25 @ 08:40 by REJI Abel) Father Multiple myeloma Sibling Diabetes mellitus Other Hypertension Social History Social History (Updated 04/08/25 @ 08:39 by REJI Abel) Social History: denies alcohol or drug use. Heavy smoker. Smoking packs per day: 1 Smoking cigarettes per day: 20.0 Years smoked: 50 Smoking pack-years: 50.00 Smoking status: Current every day smoker Tobacco type: cigarettes Second hand tobacco smoke exposure: Yes Alcohol intake: never Substance use: current Substance use type: marijuana Other substance usage details: 2 x week Do You Feel Safe in your Home?: Yes Lack of Transportation: No Lack of Food: Never True Current Housing: I Have Housing Concerned About Future Housing: No Difficulty Paying Gas/Electric Bills: No Difficulty Paying for Meds: No Currently Unemployed: No Education: High School Diploma/GED Difficulty w/ Childcare or Family Care: No Living arrangements: with family Additional living arrangements comments: Occupation/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 HEAD: Normocephalic, atraumatic. ENT: Mucous membranes moist. CHEST: Clear to auscultation. No respiratory distress. HEART: Regular rate and rhythm. Normal peripheral pulses. Back: No reproducible midline tenderness the T/L-spine, there is mild right-sided tenderness it the region of L3/L4. EXTREMITIES: Normal range of motion. No edema. NEURO: Alert and oriented x3. PSYCH: Normal mood and affect. Course Course Emergency Course: Patient resting comfortably. Informed of imaging results. Received Toradol IM here. Appropriate for discharge home with anti-inflammatory medication as well as muscle relaxers. Vital Signs Vital signs: Vital Signs Temperature 97.6 F 06/23/25 11:31 Pulse Rate 64 06/23/25 11:31 Respiratory Rate 18 06/23/25 11:31 Blood Pressure 160/91 H 06/23/25 11:31 Pulse Oximetry 97 06/23/25 11:31 Oxygen Delivery Room Air 06/23/25 11:31 Temperature 97.6 F 06/23/25 11:31 Pulse Rate 64 06/23/25 11:31 Respiratory Rate 18 06/23/25 11:31 Blood Pressure 160/91 H 06/23/25 11:31 Pulse Oximetry 97 06/23/25 11:31 Oxygen Delivery Room Air 06/23/25 11:31 MDM - Back Pain/Injury Differential Diagnosis Differential diagnosis: Likely lumbar radiculopathy, sciatica, strain of lumbar region, renal colic, pyelonephritis, thoracic back pain, AAA, discitis and other (Cauda equina) Imaging Data Radiologist's impression: ITS Impressions Lumbar Spine X-Ray 06/23/25 13:19 IMPRESSION: 1. Osteopenia. Please correlate with DEXA densitometry. 2. Significant degenerative disc disease in the lower thoracic spine. Facet arthropathy with anterolisthesis at L4-5 level. 3. Calcific changes of abdominal aorta and iliac arteries. Discharge Plan Discharge Clinical Impression: Strain of lumbar region Patient Disposition: Home Condition: Stable Instructions: Acute Low Back Pain (ED) Additional Instructions: Please return to the emergency department if you develop severe pain that is not controlled by pain medications or if you are unable to walk because of pain or weakness. Return to the emergency department immediately if you develop fevers, loss of bowel or bladder control (dribbling of urine or having accidents you wouldn't normally have), inability to urinate, numbness of your genital or anal area, or weakness/numbness of your legs or arms as these could all be signs of a serious medical emergency. Patient Language: [place] Prescriptions: New cyclobenzaprine 10 mg tablet 10 mg PO TID PRN (Reason: muscle spasm) Qty: 20 0RF naproxen 375 mg tablet 375 mg PO BID Qty: 14 0RF No Action Stiolto Respimat 2.5-2.5 mcg/actuation mist 2 puff INHALATION DAILY meloxicam 15 mg tablet 15 mg PO DIRECTED Patient Comments: HOLD for 7 days prior cholecalciferol (vitamin D3) 1,250 mcg (50,000 unit) capsule 1,250 mcg PO WEEKLY clobetasol 0.05 % ointment 1 applic topical BID Qty: 30 0RF docusate sodium [Colace] 100 mg capsule 100 mg PO BID Qty: 40 0RF Follow-up/Referrals: Jonnie,Destinee A., SALES REPRESENTATIVE [employer] [Primary Care Provider, Unknown] - 1 Week
--- OUTSIDE RECORDS SUMMARY | 2025-06-23 13:33 | XMS_ITS | Clinical Summary ---
Author Organization [facility] Address [address] [place] [address] Care Team Providers Care Vessel Specialist Name Role Phone Boaz Gautam MD Primary Care Provider [phone] Allergies Active Allergy Reactions Criticality Noted Date [...] to Face completed within 30 days: {yes no:589687::yes } Length of Need: {LENGTH OF NEED:11396715:: 99} months By: {DAMON RX O2:93454353} Active aspirin (MERCEDES) 325 mg tablet Take [...] Comments Blood Pressure 130/82 09/22/2022 2:15 PM RECYCLER FORKLIFT DRIVER TRUCK DRIVER Pulse 66 09/22/2022 2:15 PM RECYCLER FORKLIFT DRIVER TRUCK DRIVER Temperature 36.6 C (97.8 F) 09/22/2022 2:15 PM RECYCLER FORKLIFT DRIVER TRUCK DRIVER Respiratory Rate 20 09/22/2022 2:15 PM RECYCLER FORKLIFT DRIVER TRUCK DRIVER Oxygen Saturation 98% 09/22/2022 2:15 PM RECYCLER FORKLIFT DRIVER TRUCK DRIVER Inhaled Oxygen Concentration - - Weight 75.4 kg (166 lb 3.2 oz) 09/22/2022 2:15 P M RECYCLER FORKLIFT DRIVER TRUCK DRIVER Height 154.9 cm (5' 1) 03/09/2022 3:07 [...] VACCINE (60+ or ) (1 - Risk 50-74 years 1-dose series) 2004 PNEUMOCOCCAL VACCINE 50+ YEA RS (2 of 2 - PPSV23, PCV20, or PCV21) 02/01/2019 12/07/2018 OSTEOPOROSIS SCREENING 08/12/2020 08/12/2015 BREAST CANCER SCREENING 01/19/2022 01/20/20 21, 07/13/2020, 07/13/2020, Additional history exists INFLUENZA VACCINE [...] Most Recently Relevant to Health Maintenance Insurance [address] [facility] [place]ID [place] [facility] Care Teams Vessel Specialist Relationship Specialty Start Date End Date Boaz Gautam MD [address] [place] [address] PCP - General Family Practice 03/22/17
--- OUTSIDE RECORDS SUMMARY | 2025-06-23 13:33 | XMS_ITS | Clinical Summary ---
Author Organization [facility] Address [address] [place] [address] Care Team Providers Care Dry Heat Room Attendant Name Role Phone Boaz Gautam MD Primary Care Provider [phone] Source Comments [facility],non-[facility] Affiliates and Associated Physician Practices is amultiple site organization consisting of ambulatory clinics and hospital sitesin [place], [place], [place] and [place]. This disclosure is being madepursuant to the Care Everywhere program and may not contain all information available regarding this patient. 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
--- OUTSIDE RECORDS SUMMARY | 2025-06-23 13:33 | XMS_ITS | Clinical Summary ---
Author Organization [facility] Address [address] [place] [address] Phone Care Team Providers Care Leno Sewer Name Role Phone Boaz Gautam Primary Care Provider [phone] Allergies Active Allergy Reactions Criticality Noted Date Comments Codeine Itching,Nausea 07/09/2015 Medications Stiolto Respimat 2.5-2.5 MCG/ACT Aerosol Solution INHALE 2 PUFFS BY MOUTH EVERY DAY 03/16/2023 Active meloxicam (MOBIC) 15 MG Tablet Take 1 Tablet by mouth daily. 02/24/2023 Active atorvastatin (LIPITOR) 40 MG Tablet Take 40 mg by mouth daily. 03/14/2023 Active Cholecalciferol (Vitamin D3) 1.25 MG (39863 UT) Capsule TAKE 1 CAPSULE BY MOUTH [...] Virus (HCV) Screening 1954 TdaP Immunization 1954 Varicella Immunization (1 of 2 - 13+ 2-dose series) 10/02/1967 Pneumococcal Immunization (50+ years) (1 of 2 - PCV) 1973 Zoster Immunization (1 of 2) 1973 Cologuard 10/02/1999 Colonoscopy 10/02/1999 Colorectal Cancer Screening 10/02/1999 Immunochemical Fecal Occult Blood 10/02/1999 DEXA Bone Density 08/12/2017 08/12/2015 Medicare Initial AWV [id number] 02/28/2023 Mammogram 06/09/2024 06/09/2023, 12/30, 12/16/2019, Additional history exists Influenza Immunization (#1) 2025 04/30/2020, 1 SARS-COV-2 Immunization (2024- season) 2025 10/10/2020, 10/06/2020 Respiratory Syncytial Virus (RSV) Immunization (Adult) (1 [...] Anatomical Region Laterality Modality BODY N/A Other Tunde Rodriges MD IMG DEXA ORDERABLES Nesha l Result from Last 3 Months or Most Recently Relevant to Health Maintenance Insurance MEDICAID [facility] MEDICARE C HUMANA Care Teams Leno Sewer Relationship Specialty Start Date End Date Boaz Gautam [address] [address] PCP - General Family Medicine 07/08/15
[2025-06-23 13:59] VITALS: BP 140/78; PULSE 71; RESP 15; O2SAT 97
--- OUTSIDE RECORDS SUMMARY | 2025-06-23 14:06 | XMS_ITS | Clinical Summary ---
Author Organization [facility] Address [address] [place] [address] Care Team Providers Care Debarker Operator Name Role Phone Boaz Gautam MD Primary Care Provider [phone] Source Comments [facility],non-[facility] Affiliates and Associated Physician Practices is amultiple site organization consisting of ambulatory clinics and hospital sitesin [place], [place], [place] and [place]. This disclosure is being madepursuant to the Care Everywhere program and may not contain all information available regarding this patient. 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
--- OUTSIDE RECORDS SUMMARY | 2025-06-23 14:06 | XMS_ITS | Clinical Summary ---
Author Organization [facility] Address [address] [place] [address] Phone Care Team Providers Care Securities Adviser Name Role Phone Boaz Gautam Primary Care Provider [phone] Allergies Active Allergy Reactions Criticality Noted Date Comments Codeine Itching,Nausea 07/09/2015 Medications Stiolto Respimat 2.5-2.5 MCG/ACT Aerosol Solution INHALE 2 PUFFS BY MOUTH EVERY DAY 03/16/2023 Active meloxicam (MOBIC) 15 MG Tablet Take 1 Tablet by mouth daily. 02/24/2023 Active atorvastatin (LIPITOR) 40 MG Tablet Take 40 mg by mouth daily. 03/14/2023 Active Cholecalciferol (Vitamin D3) 1.25 MG (11182 UT) Capsule TAKE 1 CAPSULE BY MOUTH [...] HEALTH PLAN MEDICARE C HUMANA Care Teams Securities Adviser Relationship Specialty Start Date End Date Boaz Gautam [address] [place] [address] PCP - General Family Medicine 07/08/15
--- OUTSIDE RECORDS SUMMARY | 2025-06-23 14:06 | XMS_ITS | Clinical Summary ---
Author Organization [facility] Address [address] [place] [address] Care Team Providers Care General Ii Farmworker Name Role Phone Boaz Gautam MD Primary Care Provider [phone] Allergies Active Allergy Reactions Criticality Noted Date [...] to Face completed within 30 days: {yes no:198412::yes } Length of Need: {LENGTH OF NEED:92587590:: 99} months By: {DAMON RX O2:27859419} Active aspirin (MERCEDES) 325 mg tablet Take [...] Comments Blood Pressure 130/82 09/22/2022 2:15 PM GROUP TESTER Pulse 66 09/22/2022 2:15 PM GROUP TESTER Temperature 36.6 C (97.8 F) 09/22/2022 2:15 PM GROUP TESTER Respiratory Rate 20 09/22/2022 2:15 PM GROUP TESTER Oxygen Saturation 98% 09/22/2022 2:15 PM GROUP TESTER Inhaled Oxygen Concentration - - Weight 75.4 kg (166 lb 3.2 oz) 09/22/2022 2:15 P M GROUP TESTER Height 154.9 cm (5' 1) 03/09/2022 3:07 [...] Recently Relevant to Health Maintenance Insurance [place] [facility] Care Teams General Ii Farmworker Relationship Specialty Start Date End Date Boaz Gautam MD [address] [place] [address] PCP - General Family Practice 03/22/17
== END 2025-06-23 14:01 | disposition home or self-care (01) ==
PROVIDERS: Emergency Provider Emergency Medicine; PCP Nurse Practitioner Family
DX: S39.012A Strain of muscle, fascia and tendon of lower back, initial encounter (principal); F17.210 Nicotine dependence, cigarettes, uncomplicated; J44.9 Chronic obstructive pulmonary disease, unspecified; Z85.3 Personal history of malignant neoplasm of breast; X50.0XXA Overexertion from strenuous movement or load, initial encounter
CPT/HCPCS: 72100; 96372; 99283; J1885